=== PATIENT | female | born 1970 | race Caucasian/White ===

== ENCOUNTER 2018-03-07 16:55 | Inpatient (IN) ==
[2018-03-07 17:54] LABS: Baso # (Auto) 0.3 th/mm3 (0.0-0.2); Baso % (Auto) 2.2 % (0.0-2.0); Eos % (Auto) 0.2 % (0.0-4.0); Hematocrit 30.3 % (35.0-46.0); Hemoglobin 10.1 gm/dL (11.6-15.3); Lymph # (Auto) 0.7 th/mm3 (1.0-4.8); Lymph % (Auto) 4.7 % (9.0-44.0); Mean Corpuscular HGB Conc 33.5 % (32.0-36.0); Mean Corpuscular Hemoglobin 31.5 pg (27.0-34.0); Mean Corpuscular Volume 94.1 fL (80.0-100.0); Mean Platelet Volume 8.4 fL (7.0-11.0); Mono # (Auto) 0.4 th/mm3 (0.0-0.9); Mono % (Auto) 2.7 % (0.0-8.0); Neut # (Auto) 13.3 th/mm3 (1.8-7.7); Neut % (Auto) 90.2 % (16.0-70.0); Platelet Count 468 th/mm3 (150-450); Red Blood Count 3.22 mil/mm3 (4.00-5.30); Red Cell Distribution Width 14.2 % (11.6-17.2); White Blood Count 14.7 th/mm3 (4.0-11.0)
[2018-03-07 18:04] LABS: Chloride 110 meq/L (98-107); Potassium 4.5 meq/L (3.5-5.1); Sodium 142 meq/L (136-145)
[2018-03-07 18:08] LABS: Albumin 2.9 g/dL (3.4-5.0); Anion Gap 12 meq/L (5-15); Calcium 10.1 mg/dL (8.5-10.1); Carbon Dioxide 19.6 meq/L (21.0-32.0); Glucose,Random 119 mg/dL (74-106)
[2018-03-07 18:09] LABS: Blood Urea Nitrogen 48 mg/dL (7-18)
[2018-03-07 18:11] LABS: Alanine Aminotransferase 12 U/L (10-53); Aspartate Aminotransferase 5 U/L (15-37)
[2018-03-07 18:12] LABS: Glomerular Filtration Rate 13 mL/min (>89)
[2018-03-07 18:13] LABS: Total Protein 6.5 g/dL (6.4-8.2)
[2018-03-07 18:14] LABS: Alkaline Phosphatase 98 U/L (45-117)
[2018-03-07 18:28] LABS: Creatine Kinase 14 U/L (26-192)
--- NOTE | 2018-03-07 18:32 | ED ---
HPI General Chief complaint: Respiratory Symptoms Stated complaint: Sob/Cough [id number] Time Seen by Provider: 03/07/18 17:25 History of Present Illness HPI narrative: 47-year-old female here for evaluation of cough, chest pain and shortness of breath for the last week, fever on and off, night sweats. Patient has history of renal failure from hypertension status post renal transplant 2011 currently taken Myfortic delayed release as well as prednisone. For the last week she has been having cough that is productive of yellow sputum, pain in her chest when she takes a deep breath in, no leg swelling. When she arrived in the ER she had low saturation. Related Data Home Medications Medication Instructions Recorded Confirmed amlodipine 5 mg PO DAILY 03/07/18 03/10/18 aspirin [Aspir-81] 81 mg PO DAILY 03/07/18 03/10/18 atorvastatin 10 mg PO HS 03/07/18 03/10/18 belatacept [Nulojix] 10 mg/kg IV Q96H 03/07/18 03/10/18 mycophenolate sodium [Myfortic] 360 mg PO BID 03/07/18 03/10/18 potassium chloride 10 meq PO DAILY 03/07/18 03/10/18 prednisone 7.5 mg PO DAILY 03/07/18 03/10/18 metoprolol tartrate 100 mg PO BID 03/09/18 03/10/18 Previous Rx's Medication Instructions Recorded azithromycin 500 mg PO DAILY 7 Days #14 tab 03/17/18 doxycycline hyclate 100 mg PO BID 7 Days #14 cap 03/17/18 Allergies Allergy/AdvReac Type Severity Reaction Status Date / Time No Known Allergies Allergy NONE Uncoded 03/10/18 08:58 Review of Systems Except as stated in HPI: all other systems reviewed are negative [facility] Medical History Medical History Gall bladder disease (Acute) High cholesterol (Acute) Hypertension (Acute) Renal disease (Acute) Surgical History Surgical History Kidney transplant recipient (Acute) Social History Social History Substance History: No History of Abuse Second Hand Smoke Exposure: No Smoking Status: Never smoker How Often Do You Have a Drink Containing Alcohol: Never Recent Out of Country Travel within the Last 8 Weeks: No Immunization History Tetanus Immunization: Unsure Exam Narrative Exam Narrative: GENERAL: Alert oriented 3 no acute distress. SKIN: Focused skin assessment warm/dry. HEAD: Atraumatic. Normocephalic. EYES: Pupils equal and round. No scleral icterus. No injection or drainage. ENT: No nasal bleeding or discharge. Mucous membranes pink and moist. NECK: Trachea midline. No JVD. CARDIOVASCULAR: Regular rate and rhythm. No murmur appreciated. RESPIRATORY: No accessory muscle use. Clear to auscultation. Breath sounds equal bilaterally. GASTROINTESTINAL: Abdomen soft, non-tender, nondistended. Hepatic and splenic margins not palpable. MUSCULOSKELETAL: No obvious deformities. No clubbing. No cyanosis. No edema. NEUROLOGICAL: Awake and alert. No obvious cranial nerve deficits. Motor grossly within normal limits. Normal speech. PSYCHIATRIC: Appropriate mood and affect; insight and judgment normal. Course Initial Documented Vital Signs Temperature 99.0 F 03/07/18 17:06 Pulse Rate 79 03/07/18 17:06 Respiratory Rate 22 03/07/18 17:06 Blood Pressure 157/102 H 03/07/18 17:06 Pulse Oximetry 95 03/07/18 17:06 Last Documented Vital Signs Temperature 98.4 F 03/17/18 12:00 Pulse Rate 66 03/17/18 12:07 Respiratory Rate 20 03/17/18 12:00 Blood Pressure 132/82 03/17/18 12:00 Pulse Oximetry 96 03/17/18 12:00 Medical Decision Making [facility] Narrative Medical decision making narrative: 47-year-old female here for evaluation of cough chest pain dyspnea. CAT scan shows groundglass appearance as well as lower lobe pneumonia. Patient takes immunosuppressants for antirejection of her transplanted kidney, ABG significant for low PaO2, LDH pending, there is a concern for PCP pneumonia. Pending blood cultures, I spoke with Dr. Mckeon and the plan is we will start Rocephin and azithromycin and watch for improvement and if the patient is not improving or if the LDH is significantly elevated will start PCP coverage. Lab Data Result diagrams: 03/16/18 16:25 03/16/18 09:24 Lab Results 03/07/18 03/07/18 03/07/18 Range/Units 17:48 17:48 17:48 CBC w Diff Auto diff final WBC 14.7 H (4.0-11.0) th/mm3 RBC 3.22 L (4.00-5.30) mil/mm3 Hgb 10.1 L (11.6-15.3) gm/dL Hct 30.3 L (35.0-46.0) % MCV 94.1 (80.0-100.0) fL MCH 31.5 (27.0-34.0) pg MCHC 33.5 (32.0-36.0) % RDW 14.2 (11.6-17.2) % Plt Count 468 H (150-450) th/mm3 MPV 8.4 (7.0-11.0) fL Prelim Diff (Auto) Neut % (Auto) 90.2 H (16.0-70.0) % Lymph % (Auto) 4.7 L (9.0-44.0) % [place] % (Auto) 2.7 (0.0-8.0) % Eos % (Auto) 0.2 (0.0-4.0) % Baso % (Auto) 2.2 H (0.0-2.0) % Neut # (Auto) 13.3 H (1.8-7.7) th/mm3 Lymph # (Auto) 0.7 L (1.0-4.8) th/mm3 [place] # (Auto) 0.4 (0.0-0.9) th/mm3 Eos # (Auto) 0.0 (0.0-0.4) th/mm3 Baso # (Auto) 0.3 H (0.0-0.2) th/mm3 WBC Differential . Diff Scan Differential Comment Toxic Granulation (None) Platelet Estimate (Normal) Platelet Morphology (Normal) PT (9.8-11.6) sec INR Ratio APTT (24.3-30.1) sec Puncture Site Patient Temperature O2 Saturation (90-100) % ABG pH (7.380-7.420) ABG pCO2 (38-42) mmHg ABG pO2 (61-120) mmHg ABG HCO3 (22-26) mmol/L ABG O2 Content (12.0-20.0) Vol % ABG Base Excess (-2-2) mmol/L ABG Methemoglobin (0-2) % Marino Test Hemoglobin (12.0-16.0) G/DL Carboxyhemoglobin (0-4) % O2 Delivery Device Inspired O2 % Critical Value Sodium 142 (136-145) meq/L Potassium 4.5 (3.5-5.1) meq/L Chloride 110 H (98-107) meq/L Carbon Dioxide 19.6 L (21.0-32.0) meq/L Anion Gap 12 (5-15) meq/L BUN 48 H (7-18) mg/dL Creatinine 3.70 H (0.50-1.00) mg/dL Estimated GFR 13 L (>89) mL/min Random Glucose 119 H (74-106) mg/dL Lactic Acid (0.4-2.0) mmol/L Calcium 10.1 (8.5-10.1) mg/dL Phosphorus (2.5-4.9) mg/dL Total Bilirubin 0.3 (0.2-1.0) mg/dL AST 5 L (15-37) U/L ALT 12 (10-53) U/L Alkaline Phosphatase 98 (45-117) U/L Lactate Dehydrogenase Total Creatine Kinase 14 L (26-192) U/L Troponin I Less than 0.02 L (0.02-0.05) ng/mL B-Natriuretic Peptide 31 (0-100) pg/mL Total Protein 6.5 (6.4-8.2) g/dL Albumin 2.9 L (3.4-5.0) g/dL Beta HCG, Qual Less than 1 (0-5) mIU/mL TB (QFT) Gold In Tube (Negative) TB Test (QFT) Nil IU/mL TB Test Mitogen - Nil IU/mL TB Test Antigen - Nil IU/mL Misc Test Result Misc Test Comment 03/07/18 03/07/18 03/07/18 Range/Units 17:48 18:30 22:53 CBC w Diff WBC (4.0-11.0) th/mm3 RBC (4.00-5.30) mil/mm3 Hgb (11.6-15.3) gm/dL Hct (35.0-46.0) % MCV (80.0-100.0) fL MCH (27.0-34.0) pg MCHC (32.0-36.0) % RDW (11.6-17.2) % Plt Count (150-450) th/mm3 MPV (7.0-11.0) fL Prelim Diff (Auto) Neut % (Auto) (16.0-70.0) % Lymph % (Auto) (9.0-44.0) % [place] % (Auto) (0.0-8.0) % Eos % (Auto) (0.0-4.0) % Baso % (Auto) (0.0-2.0) % Neut # (Auto) (1.8-7.7) th/mm3 Lymph # (Auto) (1.0-4.8) th/mm3 [place] # (Auto) (0.0-0.9) th/mm3 Eos # (Auto) (0.0-0.4) th/mm3 Baso # (Auto) (0.0-0.2) th/mm3 WBC Differential Diff Scan Differential Comment Toxic Granulation (None) Platelet Estimate (Normal) Platelet Morphology (Normal) PT (9.8-11.6) sec INR Ratio APTT (24.3-30.1) sec Puncture Site Right radial Patient Temperature 98.6 O2 Saturation 91 (90-100) % ABG pH 7.40 (7.380-7.420) ABG pCO2 34 L (38-42) mmHg ABG pO2 71 (61-120) mmHg ABG HCO3 20 L (22-26) mmol/L ABG O2 Content 13.0 (12.0-20.0) Vol % ABG Base Excess -3.6 L (-2-2) mmol/L ABG Methemoglobin 1.7 (0-2) % Marino Test Present Hemoglobin 10.1 L (12.0-16.0) G/DL Carboxyhemoglobin 1.4 (0-4) % O2 Delivery Device Ra Inspired O2 21 % Critical Value No Sodium (136-145) meq/L Potassium (3.5-5.1) meq/L Chloride (98-107) meq/L Carbon Dioxide (21.0-32.0) meq/L Anion Gap (5-15) meq/L BUN (7-18) mg/dL Creatinine (0.50-1.00) mg/dL Estimated GFR (>89) mL/min Random Glucose (74-106) mg/dL Lactic Acid 0.9 (0.4-2.0) mmol/L Calcium (8.5-10.1) mg/dL Phosphorus (2.5-4.9) mg/dL Total Bilirubin (0.2-1.0) mg/dL AST (15-37) U/L ALT (10-53) U/L Alkaline Phosphatase (45-117) U/L Lactate Dehydrogenase Cancelled Total Creatine Kinase (26-192) U/L Troponin I (0.02-0.05) ng/mL B-Natriuretic Peptide (0-100) pg/mL Total Protein (6.4-8.2) g/dL Albumin (3.4-5.0) g/dL Beta HCG, Qual (0-5) mIU/mL TB (QFT) Gold In Tube (Negative) TB Test (QFT) Nil IU/mL TB Test Mitogen - Nil IU/mL TB Test Antigen - Nil IU/mL Misc Test Result Misc Test Comment 03/08/18 03/08/18 03/09/18 Range/Units 06:00 06:00 04:55 CBC w Diff Auto diff final WBC 12.5 H 15.1 H (4.0-11.0) th/mm3 RBC 2.81 L 2.76 L (4.00-5.30) mil/mm3 Hgb 8.8 L 8.5 L (11.6-15.3) gm/dL Hct 26.6 L 26.6 L (35.0-46.0) % MCV 94.7 96.1 (80.0-100.0) fL MCH 31.5 30.9 (27.0-34.0) pg MCHC 33.2 32.2 (32.0-36.0) % RDW 14.3 13.4 (11.6-17.2) % Plt Count 378 389 (150-450) th/mm3 MPV 9.2 9.2 (7.0-11.0) fL Prelim Diff (Auto) Neut % (Auto) 86.2 H (16.0-70.0) % Lymph % (Auto) 6.1 L (9.0-44.0) % [place] % (Auto) 6.2 (0.0-8.0) % Eos % (Auto) 1.1 (0.0-4.0) % Baso % (Auto) 0.4 (0.0-2.0) % Neut # (Auto) 10.7 H (1.8-7.7) th/mm3 Lymph # (Auto) 0.8 L (1.0-4.8) th/mm3 [place] # (Auto) 0.8 (0.0-0.9) th/mm3 Eos # (Auto) 0.1 (0.0-0.4) th/mm3 Baso # (Auto) 0.1 (0.0-0.2) th/mm3 WBC Differential . Diff Scan Differential Comment Toxic Granulation (None) Platelet Estimate (Normal) Platelet Morphology (Normal) PT (9.8-11.6) sec INR Ratio APTT (24.3-30.1) sec Puncture Site Patient Temperature O2 Saturation (90-100) % ABG pH (7.380-7.420) ABG pCO2 (38-42) mmHg ABG pO2 (61-120) mmHg ABG HCO3 (22-26) mmol/L ABG O2 Content (12.0-20.0) Vol % ABG Base Excess (-2-2) mmol/L ABG Methemoglobin (0-2) % [place] Test Hemoglobin (12.0-16.0) G/DL Carboxyhemoglobin (0-4) % O2 Delivery Device Inspired O2 % Critical Value Sodium 151 H (136-145) meq/L Potassium 3.8 (3.5-5.1) meq/L Chloride 117 H (98-107) meq/L Carbon Dioxide 22.8 (21.0-32.0) meq/L Anion Gap 11 (5-15) meq/L BUN 46 H (7-18) mg/dL Creatinine 3.50 H (0.50-1.00) mg/dL Estimated GFR 14 L (>89) mL/min Random Glucose 86 (74-106) mg/dL Lactic Acid (0.4-2.0) mmol/L Calcium 9.3 D (8.5-10.1) mg/dL Phosphorus (2.5-4.9) mg/dL Total Bilirubin (0.2-1.0) mg/dL AST (15-37) U/L ALT (10-53) U/L Alkaline Phosphatase (45-117) U/L Lactate Dehydrogenase Total Creatine Kinase (26-192) U/L Troponin I (0.02-0.05) ng/mL B-Natriuretic Peptide (0-100) pg/mL Total Protein (6.4-8.2) g/dL Albumin (3.4-5.0) g/dL Beta HCG, Qual (0-5) mIU/mL TB (QFT) Gold In Tube (Negative) TB Test (QFT) Nil IU/mL TB Test Mitogen - Nil IU/mL TB Test Antigen - Nil IU/mL Misc Test Result Misc Test Comment 03/09/18 03/10/18 03/11/18 Range/Units 04:55 05:33 08:25 CBC w Diff WBC 18.3 H (4.0-11.0) th/mm3 RBC 2.94 L (4.00-5.30) mil/mm3 Hgb 8.9 L (11.6-15.3) gm/dL Hct 28.2 L (35.0-46.0) % MCV 95.7 (80.0-100.0) fL MCH 30.1 (27.0-34.0) pg MCHC 31.5 L (32.0-36.0) % RDW 13.3 (11.6-17.2) % Plt Count 393 (150-450) th/mm3 MPV 8.7 (7.0-11.0) fL Prelim Diff (Auto) Neut % (Auto) (16.0-70.0) % Lymph % (Auto) (9.0-44.0) % [place] % (Auto) (0.0-8.0) % Eos % (Auto) (0.0-4.0) % Baso % (Auto) (0.0-2.0) % Neut # (Auto) (1.8-7.7) th/mm3 Lymph # (Auto) (1.0-4.8) th/mm3 [place] # (Auto) (0.0-0.9) th/mm3 Eos # (Auto) (0.0-0.4) th/mm3 Baso # (Auto) (0.0-0.2) th/mm3 WBC Differential Diff Scan Differential Comment Toxic Granulation (None) Platelet Estimate (Normal) Platelet Morphology (Normal) PT (9.8-11.6) sec INR Ratio APTT (24.3-30.1) sec Puncture Site Patient Temperature O2 Saturation (90-100) % ABG pH (7.380-7.420) ABG pCO2 (38-42) mmHg ABG pO2 (61-120) mmHg ABG HCO3 (22-26) mmol/L ABG O2 Content (12.0-20.0) Vol % ABG Base Excess (-2-2) mmol/L ABG Methemoglobin (0-2) % Mar[place] Test Hemoglobin (12.0-16.0) G/DL Carboxyhemoglobin (0-4) % O2 Delivery Device Inspired O2 % Critical Value Sodium 145 (136-145) meq/L Potassium 3.6 (3.5-5.1) meq/L Chloride 112 H (98-107) meq/L Carbon Dioxide 22.2 (21.0-32.0) meq/L Anion Gap 11 (5-15) meq/L BUN 43 H (7-18) mg/dL Creatinine 3.40 H (0.50-1.00) mg/dL Estimated GFR 14 L (>89) mL/min Random Glucose 85 (74-106) mg/dL Lactic Acid (0.4-2.0) mmol/L Calcium 9.4 (8.5-10.1) mg/dL Phosphorus (2.5-4.9) mg/dL Total Bilirubin (0.2-1.0) mg/dL AST (15-37) U/L ALT (10-53) U/L Alkaline Phosphatase (45-117) U/L Lactate Dehydrogenase Total Creatine Kinase (26-192) U/L Troponin I (0.02-0.05) ng/mL B-Natriuretic Peptide (0-100) pg/mL Total Protein (6.4-8.2) g/dL Albumin (3.4-5.0) g/dL Beta HCG, Qual (0-5) mIU/mL TB (QFT) Gold In Tube Negative (Negative) TB Test (QFT) Nil 0.02 IU/mL TB Test Mitogen - Nil 1.06 IU/mL TB Test Antigen - Nil 0 IU/mL Misc Test Result Misc Test Comment 03/11/18 03/12/18 03/12/18 Range/Units 08:25 06:05 06:05 CBC w Diff WBC 16.1 H (4.0-11.0) th/mm3 RBC 2.66 L (4.00-5.30) mil/mm3 Hgb 8.3 L (11.6-15.3) gm/dL Hct 24.8 L (35.0-46.0) % MCV 93.1 (80.0-100.0) fL MCH 31.3 (27.0-34.0) pg MCHC 33.6 (32.0-36.0) % RDW 14.0 (11.6-17.2) % Plt Count 352 (150-450) th/mm3 MPV 9.1 (7.0-11.0) fL Prelim Diff (Auto) Neut % (Auto) (16.0-70.0) % Lymph % (Auto) (9.0-44.0) % [place] % (Auto) (0.0-8.0) % Eos % (Auto) (0.0-4.0) % Baso % (Auto) (0.0-2.0) % Neut # (Auto) (1.8-7.7) th/mm3 Lymph # (Auto) (1.0-4.8) th/mm3 [place] # (Auto) (0.0-0.9) th/mm3 Eos # (Auto) (0.0-0.4) th/mm3 Baso # (Auto) (0.0-0.2) th/mm3 WBC Differential Diff Scan Differential Comment Toxic Granulation (None) Platelet Estimate (Normal) Platelet Morphology (Normal) PT (9.8-11.6) sec INR Ratio APTT (24.3-30.1) sec Puncture Site Patient Temperature O2 Saturation (90-100) % ABG pH (7.380-7.420) ABG pCO2 (38-42) mmHg ABG pO2 (61-120) mmHg ABG HCO3 (22-26) mmol/L ABG O2 Content (12.0-20.0) Vol % ABG Base Excess (-2-2) mmol/L ABG Methemoglobin (0-2) % [place] Test Hemoglobin (12.0-16.0) G/DL Carboxyhemoglobin (0-4) % O2 Delivery Device Inspired O2 % Critical Value Sodium 147 H 147 H (136-145) meq/L Potassium 3.3 L 3.4 L (3.5-5.1) meq/L Chloride 114 H 116 H (98-107) meq/L Carbon Dioxide 21.0 20.2 L (21.0-32.0) meq/L Anion Gap 12 11 (5-15) meq/L BUN 29 H 29 H (7-18) mg/dL Creatinine 3.30 H 3.20 H (0.50-1.00) mg/dL Estimated GFR 15 L 15 L (>89) mL/min Random Glucose 119 H 98 (74-106) mg/dL Lactic Acid (0.4-2.0) mmol/L Calcium 9.6 9.7 (8.5-10.1) mg/dL Phosphorus (2.5-4.9) mg/dL Total Bilirubin 0.4 (0.2-1.0) mg/dL AST 8 L (15-37) U/L ALT 8 L (10-53) U/L Alkaline Phosphatase 70 (45-117) U/L Lactate Dehydrogenase Total Creatine Kinase (26-192) U/L Troponin I (0.02-0.05) ng/mL B-Natriuretic Peptide (0-100) pg/mL Total Protein 5.7 L D (6.4-8.2) g/dL Albumin 2.0 L (3.4-5.0) g/dL Beta HCG, Qual (0-5) mIU/mL TB (QFT) Gold In Tube (Negative) TB Test (QFT) Nil IU/mL TB Test Mitogen - Nil IU/mL TB Test Antigen - Nil IU/mL Misc Test Result Misc Test Comment 03/12/18 03/13/18 03/13/18 Range/Units 11:55 06:00 06:00 CBC w Diff WBC 16.9 H (4.0-11.0) th/mm3 RBC 2.84 L (4.00-5.30) mil/mm3 Hgb 8.4 L (11.6-15.3) gm/dL Hct 26.7 L (35.0-46.0) % MCV 94.1 (80.0-100.0) fL MCH 29.8 (27.0-34.0) pg MCHC 31.6 L (32.0-36.0) % RDW 13.7 (11.6-17.2) % Plt Count 375 (150-450) th/mm3 MPV 8.9 (7.0-11.0) fL Prelim Diff (Auto) Neut % (Auto) (16.0-70.0) % Lymph % (Auto) (9.0-44.0) % [place] % (Auto) (0.0-8.0) % Eos % (Auto) (0.0-4.0) % Baso % (Auto) (0.0-2.0) % Neut # (Auto) (1.8-7.7) th/mm3 Lymph # (Auto) (1.0-4.8) th/mm3 [place] # (Auto) (0.0-0.9) th/mm3 Eos # (Auto) (0.0-0.4) th/mm3 Baso # (Auto) (0.0-0.2) th/mm3 WBC Differential Diff Scan Differential Comment Toxic Granulation (None) Platelet Estimate (Normal) Platelet Morphology (Normal) PT 10.6 (9.8-11.6) sec INR 1.0 Ratio APTT 25.0 (24.3-30.1) sec Puncture Site Patient Temperature O2 Saturation (90-100) % ABG pH (7.380-7.420) ABG pCO2 (38-42) mmHg ABG pO2 (61-120) mmHg ABG HCO3 (22-26) mmol/L ABG O2 Content (12.0-20.0) Vol % ABG Base Excess (-2-2) mmol/L ABG Methemoglobin (0-2) % Mar[place] Test Hemoglobin (12.0-16.0) G/DL Carboxyhemoglobin (0-4) % O2 Delivery Device Inspired O2 % Critical Value Sodium 146 H (136-145) meq/L Potassium 3.6 (3.5-5.1) meq/L Chloride 115 H (98-107) meq/L Carbon Dioxide 16.3 L (21.0-32.0) meq/L Anion Gap 15 (5-15) meq/L BUN 36 H (7-18) mg/dL Creatinine 3.24 H (0.50-1.00) mg/dL Estimated GFR 15 L (>89) mL/min Random Glucose 82 (74-106) mg/dL Lactic Acid (0.4-2.0) mmol/L Calcium 10.0 (8.5-10.1) mg/dL Phosphorus (2.5-4.9) mg/dL Total Bilirubin (0.2-1.0) mg/dL AST (15-37) U/L ALT (10-53) U/L Alkaline Phosphatase (45-117) U/L Lactate Dehydrogenase Total Creatine Kinase (26-192) U/L Troponin I (0.02-0.05) ng/mL B-Natriuretic Peptide (0-100) pg/mL Total Protein (6.4-8.2) g/dL Albumin (3.4-5.0) g/dL Beta HCG, Qual (0-5) mIU/mL TB (QFT) Gold In Tube (Negative) TB Test (QFT) Nil IU/mL TB Test Mitogen - Nil IU/mL TB Test Antigen - Nil IU/mL Misc Test Result Misc Test Comment 03/13/18 03/14/18 03/14/18 Range/Units 13:36 12:17 12:17 CBC w Diff WBC 15.7 H (4.0-11.0) th/mm3 RBC 2.89 L (4.00-5.30) mil/mm3 Hgb 8.5 L (11.6-15.3) gm/dL Hct 27.4 L (35.0-46.0) % MCV 94.8 (80.0-100.0) fL MCH 29.4 (27.0-34.0) pg MCHC 31.1 L (32.0-36.0) % RDW 13.6 (11.6-17.2) % Plt Count 331 (150-450) th/mm3 MPV 9.2 (7.0-11.0) fL Prelim Diff (Auto) Neut % (Auto) (16.0-70.0) % Lymph % (Auto) (9.0-44.0) % [place] % (Auto) (0.0-8.0) % Eos % (Auto) (0.0-4.0) % Baso % (Auto) (0.0-2.0) % Neut # (Auto) (1.8-7.7) th/mm3 Lymph # (Auto) (1.0-4.8) th/mm3 [place] # (Auto) (0.0-0.9) th/mm3 Eos # (Auto) (0.0-0.4) th/mm3 Baso # (Auto) (0.0-0.2) th/mm3 WBC Differential Diff Scan Differential Comment Toxic Granulation (None) Platelet Estimate (Normal) Platelet Morphology (Normal) PT (9.8-11.6) sec INR Ratio APTT (24.3-30.1) sec Puncture Site Patient Temperature O2 Saturation (90-100) % ABG pH (7.380-7.420) ABG pCO2 (38-42) mmHg ABG pO2 (61-120) mmHg ABG HCO3 (22-26) mmol/L ABG O2 Content (12.0-20.0) Vol % ABG Base Excess (-2-2) mmol/L ABG Methemoglobin (0-2) % Mar[place] Test Hemoglobin (12.0-16.0) G/DL Carboxyhemoglobin (0-4) % O2 Delivery Device Inspired O2 % Critical Value Sodium 142 (136-145) meq/L Potassium 4.1 (3.5-5.1) meq/L Chloride 113 H (98-107) meq/L Carbon Dioxide 17.3 L (21.0-32.0) meq/L Anion Gap 12 (5-15) meq/L BUN 44 H (7-18) mg/dL Creatinine 3.16 H (0.50-1.00) mg/dL Estimated GFR 16 L (>89) mL/min Random Glucose 122 H (74-106) mg/dL Lactic Acid (0.4-2.0) mmol/L Calcium 10.1 (8.5-10.1) mg/dL Phosphorus 2.7 (2.5-4.9) mg/dL Total Bilirubin (0.2-1.0) mg/dL AST (15-37) U/L ALT (10-53) U/L Alkaline Phosphatase (45-117) U/L Lactate Dehydrogenase Total Creatine Kinase (26-192) U/L Troponin I (0.02-0.05) ng/mL B-Natriuretic Peptide (0-100) pg/mL Total Protein (6.4-8.2) g/dL Albumin 2.0 L (3.4-5.0) g/dL Beta HCG, Qual (0-5) mIU/mL TB (QFT) Gold In Tube (Negative) TB Test (QFT) Nil IU/mL TB Test Mitogen - Nil IU/mL TB Test Antigen - Nil IU/mL Misc Test Result Cancelled Misc Test Comment Cancelled 03/15/18 03/16/18 03/16/18 Range/Units 09:49 09:24 16:25 CBC w Diff WBC 12.7 H (4.0-11.0) th/mm3 RBC 3.05 L (4.00-5.30) mil/mm3 Hgb 9.1 L (11.6-15.3) gm/dL Hct 29.0 L (35.0-46.0) % MCV 95.0 (80.0-100.0) fL MCH 29.7 (27.0-34.0) pg MCHC 31.3 L (32.0-36.0) % RDW 13.7 (11.6-17.2) % Plt Count 413 (150-450) th/mm3 MPV 9.2 (7.0-11.0) fL Prelim Diff (Auto) Slide review pending Neut % (Auto) 94.7 H (16.0-70.0) % Lymph % (Auto) 2.4 L (9.0-44.0) % Bullitt % (Auto) 2.6 (0.0-8.0) % Eos % (Auto) 0.1 (0.0-4.0) % Baso % (Auto) 0.2 (0.0-2.0) % Neut # (Auto) 12.0 H (1.8-7.7) th/mm3 Lymph # (Auto) 0.3 L (1.0-4.8) th/mm3 Bullitt # (Auto) 0.3 (0.0-0.9) th/mm3 Eos # (Auto) 0.0 (0.0-0.4) th/mm3 Baso # (Auto) 0.0 (0.0-0.2) th/mm3 WBC Differential . Diff Scan Auto diff confirmed Differential Comment . Toxic Granulation 1+ H (None) Platelet Estimate Normal (Normal) Platelet Morphology Normal (Normal) PT (9.8-11.6) sec INR Ratio APTT (24.3-30.1) sec Puncture Site Patient Temperature O2 Saturation (90-100) % ABG pH (7.380-7.420) ABG pCO2 (38-42) mmHg ABG pO2 (61-120) mmHg ABG HCO3 (22-26) mmol/L ABG O2 Content (12.0-20.0) Vol % ABG Base Excess (-2-2) mmol/L ABG Methemoglobin (0-2) % Marino Test Hemoglobin (12.0-16.0) G/DL Carboxyhemoglobin (0-4) % O2 Delivery Device Inspired O2 % Critical Value Sodium 145 145 (136-145) meq/L Potassium 4.0 3.7 (3.5-5.1) meq/L Chloride 113 H 114 H (98-107) meq/L Carbon Dioxide 17.6 L 16.8 L (21.0-32.0) meq/L Anion Gap 14 14 (5-15) meq/L BUN 43 H 47 H (7-18) mg/dL Creatinine 3.29 H 3.36 H (0.50-1.00) mg/dL Estimated GFR 15 L 15 L (>89) mL/min Random Glucose 109 H 125 H (74-106) mg/dL Lactic Acid (0.4-2.0) mmol/L Calcium 11.1 H D 11.4 H (8.5-10.1) mg/dL Phosphorus 2.4 L 2.9 (2.5-4.9) mg/dL Total Bilirubin (0.2-1.0) mg/dL AST (15-37) U/L ALT (10-53) U/L Alkaline Phosphatase (45-117) U/L Lactate Dehydrogenase Total Creatine Kinase (26-192) U/L Troponin I (0.02-0.05) ng/mL B-Natriuretic Peptide (0-100) pg/mL Total Protein (6.4-8.2) g/dL Albumin 2.0 L 1.9 L (3.4-5.0) g/dL Beta HCG, Qual (0-5) mIU/mL TB (QFT) Gold In Tube (Negative) TB Test (QFT) Nil IU/mL TB Test Mitogen - Nil IU/mL TB Test Antigen - Nil IU/mL Misc Test Result Misc Test Comment Imaging Data Radiologist's impression: Chest CT 03/07/18 17:26 CONCLUSION: 1. Bilateral pulmonary infiltrates likely infectious in etiology. Noncardiogenic pulmonary edema could have a similar appearance . Chest X-Ray 03/11/18 00:00 CONCLUSION: Bibasilar patchy infiltrates. Treatment and follow-up to resolution recommended. Chest X-Ray 03/15/18 00:00 CONCLUSION: Bilateral edema versus pneumonia unchanged Discharge Plan Discharge Disposition Patient Disposition: 02 Transfer to [facility] Discharge Condition Condition: Stable Discharge Order Discharge Orders: Discharge Order (Routine); Ordered 03/17/18 Ordered By: Sameer Lux Discharge Details Anticipated Discharge Date: 03/17/18 Physicians Team ED Provider: David Dailey Primary Care Provider: UNKNOWN, Attending Provider: Sameer Lux Other Providers: Fredrick Metzger ; Corry Corcoran ; [facility],Insurance ; Mark Turcios ; Gigi Lance Status ED Status: Left Department Discharge Information Discharge Date/Time: 03/07/18 20:45
[2018-03-07 18:38] LABS: ABG Base Excess -3.6 mmol/L (-2-2); ABG PCO2 34 mmHg (38-42); ABG PO2 71 mmHg (61-120)
[2018-03-07] MEDS ORDERED: Temazepam 15 MG Capsule PO PRN (18:41)
[2018-03-07] MEDS ORDERED: Acetaminophen 325 MG Tablet PO PRN (18:41)
[2018-03-07] MEDS: Azithromycin Inj 500 MG in Sodium Chlor 0.9% Inj 250 ML IV.SIG SCH (20:21)
--- NOTE | 2018-03-07 21:22 | ECG ---
Date Performed: 03/07/2018 Time Performed: 17:36:15 PTAGE: 47 years EKG: Sinus rhythm POSSIBLE LEFT ATRIAL ENLARGEMENT BORDERLINE ECG PREVIOUS TRACING : 05/04/2011 02.16 Since the previous tracing, no significant change noted DOCTOR: Miguel Woods Interpretating Date/Time 03/07/2018 21:20:36
[2018-03-07] MEDS: Heparin - SQ 10,000 UNITS/ML Vial SQ SCH (23:03)
[2018-03-08] MEDS: Heparin - SQ 10,000 UNITS/ML Vial SQ SCH ×3 (04:44→18:18)
[2018-03-08 07:06] LABS: Baso # (Auto) 0.1 th/mm3 (0.0-0.2); Baso % (Auto) 0.4 % (0.0-2.0); Eos # (Auto) 0.1 th/mm3 (0.0-0.4); Eos % (Auto) 1.1 % (0.0-4.0); Hematocrit 26.6 % (35.0-46.0); Hemoglobin 8.8 gm/dL (11.6-15.3); Lymph # (Auto) 0.8 th/mm3 (1.0-4.8); Lymph % (Auto) 6.1 % (9.0-44.0); Mean Corpuscular HGB Conc 33.2 % (32.0-36.0); Mean Corpuscular Hemoglobin 31.5 pg (27.0-34.0); Mean Corpuscular Volume 94.7 fL (80.0-100.0); Mean Platelet Volume 9.2 fL (7.0-11.0); Mono # (Auto) 0.8 th/mm3 (0.0-0.9); Mono % (Auto) 6.2 % (0.0-8.0); Neut # (Auto) 10.7 th/mm3 (1.8-7.7); Neut % (Auto) 86.2 % (16.0-70.0); Platelet Count 378 th/mm3 (150-450); Red Blood Count 2.81 mil/mm3 (4.00-5.30); Red Cell Distribution Width 14.3 % (11.6-17.2); White Blood Count 12.5 th/mm3 (4.0-11.0)
[2018-03-08 07:13] LABS: Potassium 3.8 meq/L (3.5-5.1)
[2018-03-08 07:17] LABS: Calcium 9.3 mg/dL (8.5-10.1)
[2018-03-08 07:18] LABS: Carbon Dioxide 22.8 meq/L (21.0-32.0)
[2018-03-08] MEDS ORDERED: BELATACEPT IV.SIG SCH (10:15)
--- NOTE | 2018-03-08 10:21 | P.HP ---
History of Present Illness Primary Care Physician: Sea Rizo MD Chief Complaint: shortness of breath History of Present Illness: this is a 47 y/o female with history of kidney failure- s/p renal transplant, hypertension, who presented to ER with worsening sob over the past two weeks. she says that now when she's walking she's having more sob. she has dry cough. she had some low grade fever at home. she doesn't recall any recent sick exposures. - Diagnosis (1) Pneumonia (2) S/P kidney transplant (3) Hypertension (4) Hypernatremia - Inpatient Certification If this patient has been admitted as an Inpatient: I certify that the inpatient services were ordered in accordance with Medicare regulations governing the order. This includes certification that hospital inpatient services are reasonable and necessary and in the case of services not specified as inpatient-only under 42 CFR 419.22(n), that they are appropriately provided as inpatient services in accordance to with the 2-midnight benchmark under 43 CFR 412.3(e) Estimated Total Length of Stay (Days): 4 Plans for Post Hospital Care: Home Review of Systems All other systems reviewed negative except as stated in HPI PMFSH - History History Provided By: Patient - Medical History Medical History: Medical History (Last Reviewed 03/08/18 @ 10:16 by Savanna Martin MD) Gall bladder disease High cholesterol - Surgical History Surgical History: Surgical History (Last Reviewed 03/08/18 @ 16:04 by Daniel Garcia RN) Kidney transplant recipient - Tobacco History Second Hand Smoke Exposure: No Smoking Status: Never smoker - Alcohol History How Often Do You Have a Drink Containing Alcohol: Never - Substance Use History Substance History: No History of Abuse - Travel History Recent Travel Out of the Country Within the Last 8 Weeks: No - Immunization History Tetanus Immunization: Unsure Medications and Allergies Active Medications: Active Medications Acetaminophen (Tylenol) 650 mg PO Q4H PRN PRN Reason: Temp > 100.4 Albuterol (Duoneb Neb (Prn)) 1 ampul NEB Q4HR NEB PRN PRN Reason: DYSPNEA Amlodipine Besylate (Norvasc) 5 mg PO DAILY [facility] Aspirin (Ecotrin) 81 mg PO DAILY [facility] Atorvastatin Calcium (Lipitor) 10 mg PO HS [facility] Heparin Sodium (Porcine) (Heparin Inj) 5,000 units SQ Q8H [facility] Last Admin: 03/08/18 04:44 Dose: 5,000 units Azithromycin 500 mg/ Sodium (Chloride) 250 mls @ 250 mls/hr IV.SIG Q24H [facility] Last Infusion: 03/07/18 22:17 Dose: Infused Ceftriaxone Sodium 1,000 mg/ (Sodium Chloride) 100 mls @ 200 mls/hr IV.SIG Q12H [facility] Last Infusion: 03/08/18 07:07 Dose: Infused Lactated Ringer's (Lr 1000 Ml Inj) 1,000 mls @ 100 mls/hr IV.CONT .Q10H [facility] Last Admin: 03/08/18 06:12 Dose: 100 mls/hr Metoclopramide HCl (Reglan Inj) 5 mg IV.PUSH Q6HR PRN; Protocol PRN Reason: NAUSEA OR VOMITING Metoprolol Tartrate (Lopressor) 50 mg PO BID [facility] Mycophenolate Sodium (Myfortic Dr) 180 mg PO BID [facility] Non-Formulary Medication (Belatacept [Nulojix]) 10 mg/kg IV.SIG Q96H [facility] Non-Formulary Medication (Prednisone [Prednisone]) 2.5 mg PO DAILY [facility] Temazepam (Restoril) 15 mg PO HS PRN PRN Reason: INSOMNIA Allergies Allergy/AdvReac Type Severity Reaction Status Date / Time No Known Allergies Allergy NONE Uncoded 03/07/18 17:10 Home Medications Medication Instructions Recorded Confirmed Type amlodipine 5 mg PO DAILY 03/07/18 03/07/18 History aspirin [Aspir-81] 81 mg PO DAILY 03/07/18 03/07/18 History atorvastatin 10 mg PO HS 03/07/18 03/08/18 History belatacept [Nulojix] 10 mg/kg IV Q96H 03/07/18 03/07/18 History metoprolol tartrate 50 mg PO BID 03/07/18 03/07/18 History mycophenolate sodium [Myfortic] 180 mg PO BID 03/07/18 History potassium chloride 10 meq PO DAILY 03/07/18 03/07/18 History prednisone 2.5 mg PO DAILY 03/07/18 03/07/18 History Exam Vital signs: Vital Signs 03/07/18 17:06 03/07/18 17:11 03/07/18 17:21 Temperature 99.0 F Pulse Rate 79 82 79 Respiratory Rate 22 18 22 Blood Pressure 157/102 H 172/112 H 164/98 H Pulse Oximetry 95 96 95 03/07/18 18:41 03/07/18 20:49 03/08/18 01:03 Temperature 98.0 F Pulse Rate 82 88 Respiratory Rate 18 21 Blood Pressure 172/112 H 144/93 H Pulse Oximetry 96 91 L 94 L 03/08/18 01:04 03/08/18 04:00 03/08/18 08:00 Temperature 98.4 F 99.2 F Pulse Rate 79 80 Respiratory Rate 23 18 Blood Pressure 122/75 149/86 H Pulse Oximetry 94 L 92 L 95 Intake & Output 03/07/18 03/08/18 03/08/18 18:59 06:59 18:59 Intake Total 1470 / 1470 100 / 100 Balance 1470 / 1470 100 / 100 Weight 47 kg 47.2 kg Intake: IV 1350 / 1350 100 / 100 LR 1000 mL Inj 1,000 ML @ 100 1000 / 1000 mls/hr IV.CONT .Q10H [facility] Rx#: [id number] Azithromycin Inj 500 MG In NS 250 / 250 Inj 250 ML @ 250 mls/hr IV.SIG Q24H [facility] Rx#:[id number] Rocephin Inj 1,000 MG In NS Inj 100 / 100 100 / 100 100 ML @ 200 mls/hr IV.SIG Q12H [facility] Rx#:[id number] Oral 120 / 120 Other: # Voids 2 # Bowel Movements 0 - Constitutional mild distress - Routine HEENT Exam Head: Present: normocephalic, atraumatic Eye: Present: PERRL - Routine Neck Exam Present: supple, full ROM - Routine Respiratory Exam Present: CTA bilaterally - Routine Cardiovascular Exam Present: RRR - Routine Neurological Exam Present: alert, oriented X3 Results - Labs CBC & Chem 7: 03/08/18 06:00 03/08/18 06:00 Labs: Laboratory Results - last 24 hr 03/07/18 03/07/18 03/07/18 17:48 17:48 17:48 CBC w Diff Auto diff final WBC 14.7 H RBC 3.22 L Hgb 10.1 L Hct 30.3 L MCV 94.1 MCH 31.5 MCHC 33.5 RDW 14.2 Plt Count 468 H MPV 8.4 Neut % (Auto) 90.2 H Lymph % (Auto) 4.7 L [place] % (Auto) 2.7 Eos % (Auto) 0.2 Baso % (Auto) 2.2 H Neut # (Auto) 13.3 H Lymph # (Auto) 0.7 L [place] # (Auto) 0.4 Eos # (Auto) 0.0 Baso # (Auto) 0.3 H WBC Differential . Puncture Site Patient Temperature O2 Saturation ABG pH ABG pCO2 ABG pO2 ABG HCO3 ABG O2 Content ABG Base Excess ABG Methemoglobin [place] Test Hemoglobin Carboxyhemoglobin O2 Delivery Device Inspired O2 Critical Value Sodium 142 Potassium 4.5 Chloride 110 H Carbon Dioxide 19.6 L Anion Gap 12 BUN 48 H Creatinine 3.70 H Estimated GFR 13 L Random Glucose 119 H Lactic Acid Calcium 10.1 Total Bilirubin 0.3 AST 5 L ALT 12 Alkaline Phosphatase 98 Lactate Dehydrogenase Total Creatine Kinase 14 L Troponin I Less than 0.02 L B-Natriuretic Peptide 31 Total Protein 6.5 Albumin 2.9 L Beta HCG, Qual Less than 1 03/07/18 03/07/18 03/07/18 17:48 18:30 22:53 CBC w Diff WBC RBC Hgb Hct MCV MCH MCHC RDW Plt Count MPV Neut % (Auto) Lymph % (Auto) [place] % (Auto) Eos % (Auto) Baso % (Auto) Neut # (Auto) Lymph # (Auto) [place] # (Auto) Eos # (Auto) Baso # (Auto) WBC Differential Puncture Site Right radial Patient Temperature 98.6 O2 Saturation 91 ABG pH 7.40 ABG pCO2 34 L ABG pO2 71 ABG HCO3 20 L ABG O2 Content 13.0 ABG Base Excess -3.6 L ABG Methemoglobin 1.7 [place] Test Present Hemoglobin 10.1 L Carboxyhemoglobin 1.4 O2 Delivery Device Ra Inspired O2 21 Critical Value No Sodium Potassium Chloride Carbon Dioxide Anion Gap BUN Creatinine Estimated GFR Random Glucose Lactic Acid 0.9 Calcium Total Bilirubin AST ALT Alkaline Phosphatase Lactate Dehydrogenase Cancelled Total Creatine Kinase Troponin I B-Natriuretic Peptide Total Protein Albumin Beta HCG, Qual 03/08/18 03/08/18 06:00 06:00 CBC w Diff Auto diff final WBC 12.5 H RBC 2.81 L Hgb 8.8 L Hct 26.6 L MCV 94.7 MCH 31.5 MCHC 33.2 RDW 14.3 Plt Count 378 MPV 9.2 Neut % (Auto) 86.2 H Lymph % (Auto) 6.1 L [place] % (Auto) 6.2 Eos % (Auto) 1.1 Baso % (Auto) 0.4 Neut # (Auto) 10.7 H Lymph # (Auto) 0.8 L [place] # (Auto) 0.8 Eos # (Auto) 0.1 Baso # (Auto) 0.1 WBC Differential . Puncture Site Patient Temperature O2 Saturation ABG pH ABG pCO2 ABG pO2 ABG HCO3 ABG O2 Content ABG Base Excess ABG Methemoglobin [place] Test Hemoglobin Carboxyhemoglobin O2 Delivery Device Inspired O2 Critical Value Sodium 151 H Potassium 3.8 Chloride 117 H Carbon Dioxide 22.8 Anion Gap 11 BUN 46 H Creatinine 3.50 H Estimated GFR 14 L Random Glucose 86 Lactic Acid Calcium 9.3 D Total Bilirubin AST ALT Alkaline Phosphatase Lactate Dehydrogenase Total Creatine Kinase Troponin I B-Natriuretic Peptide Total Protein Albumin Beta HCG, Qual - Imaging Impressions Chest CT 03/07/18 17:26 CONCLUSION: 1. Bilateral pulmonary infiltrates likely infectious in etiology. Noncardiogenic pulmonary edema could have a similar appearance . Caprini VTE Risk Assessment Caprini VTE Risk Assessment: Moderate/High Risk (score >= 2) Caprini Risk Assessment Model: Point Value = 1 Point Value = 2 Point Value = 3 Point Value = 5 Age 41-60 Minor surgery BMI > 25 kg/m2 Swollen legs Varicose veins or History of unexplained or recurrent spontaneous Oral contraceptives or hormone replacement Sepsis (< 1 month) Serious lung disease, including pneumonia (< 1 month) Abnormal pulmonary function Acute myocardial infarction Congestive heart failure (< 1 month) History of inflammatory bowel disease Medical patient at bed rest Age 61-74 Arthroscopic surgery Major open surgery (> 45 min) Laparoscopic surgery (> 45 min) Malignancy Confined to bed (> 72 hours) Immobilizing plaster cast Central venous access Age >= 75 History of VTE Family history of VTE Factor V Leiden Prothrombin [id number] Lupus anticoagulant Anticardiolipin antibodies Elevated serum homocysteine Heparin-induced thrombocytopenia Other congenital or acquired thrombophilia Stroke (< 1 month) Elective arthroplasty Hip, pelvis, or leg fracture Acute spinal cord injury (< 1 month) Prophylaxis Regimen: Total Risk Factor Score Risk Level Prophylaxis Regimen 0-1 Low Early ambulation 2 Moderate Order ONE of the following: *Sequential Compression Device (SCD) *Heparin 5000 units SQ BID 3-4 Higher Order ONE of the following medications: *Heparin 5000 units SQ TID *Enoxaparin/Lovenox 40 mg SQ daily (WT < 150 kg, CrCl > 30 mL/min) *Enoxaparin/Lovenox 30 mg SQ daily (WT < 150 kg, CrCl > 10-29 mL/min) *Enoxaparin/Lovenox 30 mg SQ BID (WT < 150 kg, CrCl > 30 mL/min) AND/OR *Sequential Compression Device (SCD) 5 or more Highest Order ONE of the following medications: *Heparin 5000 units SQ TID (Preferred with Epidurals) *Enoxaparin/Lovenox 40 mg SQ daily (WT < 150 kg, CrCl > 30 mL/min) *Enoxaparin/Lovenox 30 mg SQ daily (WT < 150 kg, CrCl > 10-29 mL/min) *Enoxaparin/Lovenox 30 mg SQ BID (WT < 150 kg, CrCl > 30 mL/min) AND *Sequential Compression Device (SCD) Assessment and Plan - Assessment (1) Pneumonia Code(s): J18.9 - Pneumonia, unspecified organism Status: Acute Plan: continue with IV antibiotics and neb treatment- follow the cultures.will try to wean off the oxygen- to keep O2 sat > 90%. (2) S/P kidney transplant Code(s): Z94.0 - Kidney transplant status Status: Chronic Plan: will continue with immunosuppression therapy- monitor renal function and consult Nephrology. (3) Hypertension Code(s): I10 - Essential (primary) hypertension Status: Chronic Plan: continue home meds and continue to monitor- will adjust the regimen as needed. (4) Hypernatremia Code(s): E87.0 - Hyperosmolality and hypernatremia Status: Acute Plan: continue IV fluid- will monitor- nephrology evaluation as noted above. - Plan Discharge Planning: possible dc home within the next one-two days if clinically improves-pending the cultures. (1) Pneumonia Qualifiers: Pneumonia type: due to unspecified organism Laterality: bilateral (3) Hypertension Qualifiers: Hypertension type: essential hypertension Qualified Code(s): I10 - Essential (primary) hypertension
[2018-03-08] MEDS ORDERED: BELATACEPT IV.PUSH SCH (10:30)
[2018-03-08] MEDS: predniSONE 5 MG Tablet PO SCH (11:04)
[2018-03-08] MEDS: amLODIPine 5 MG Tablet PO SCH (11:04)
--- NOTE | 2018-03-08 14:24 | P.CONNP ---
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 Admitted with history of shortness of breath for 2 weeks, low grade fever and fatigue. Imaging is consistent with pneumonia. She has been placed on Zithromax and Ceftriaxone. Renal function appears to be at baseline. Review of Systems Constitutional: Reports body ache(s), Reports chills, Reports fatigue, Reports fever(s), Reports lack of energy Cardiovascular: Reports shortness of breath, Denies chest pain Respiratory: Reports chest congestion, Reports cough Gastrointestinal: Denies abdominal pain, Denies vomiting blood Musculoskeletal: Denies back pain, Denies muscle weakness, Denies numbness Psychiatric: Denies anxiety PMFSH - History History Provided By: Patient - Medical / Surgical Hx Neg / Unobtainable Medical Problems Denied: Yes - Medical History Medical History: Medical History (Last Reviewed 03/08/18 @ 16:04 by Daniel Garcia RN) Gall bladder disease High cholesterol - Surgical History Surgical History: Surgical History (Last Reviewed 03/08/18 @ 16:04 by Daniel Garcia RN) Kidney transplant recipient - Tobacco History Second Hand Smoke Exposure: No Smoking Status: Never smoker - Alcohol History How Often Do You Have a Drink Containing Alcohol: Never - Substance Use History Substance History: No History of Abuse - Travel History Recent Travel Out of the Country Within the Last 8 Weeks: No - Immunization History Tetanus Immunization: Unsure Medications and Allergies Active Medications: Active Medications Acetaminophen (Tylenol) 650 mg PO Q4H PRN PRN Reason: Temp > 100.4 Albuterol (Duoneb Neb (Prn)) 1 ampul NEB Q4HR NEB PRN PRN Reason: DYSPNEA Last Admin: 03/08/18 14:17 Dose: 1 ampul Amlodipine Besylate (Norvasc) 5 mg PO DAILY [facility] Last Admin: 03/08/18 11:04 Dose: Not Given Aspirin (Ecotrin) 81 mg PO DAILY [facility] Last Admin: 03/08/18 11:04 Dose: Not Given Atorvastatin Calcium (Lipitor) 10 mg PO HS [facility] Heparin Sodium (Porcine) (Heparin Inj) 5,000 units SQ Q8H [facility] Last Admin: 03/08/18 11:05 Dose: 5,000 units Azithromycin 500 mg/ Sodium (Chloride) 250 mls @ 250 mls/hr IV.SIG Q24H [facility] Last Infusion: 03/07/18 22:17 Dose: Infused Lactated Ringer's (Lr 1000 Ml Inj) 1,000 mls @ 100 mls/hr IV.CONT .Q10H [facility] Last Admin: 03/08/18 06:12 Dose: 100 mls/hr Cefepime HCl 1,000 mg/ Sodium (Chloride) 100 mls @ 200 mls/hr IV.SIG Q24H [facility] Last Infusion: 03/08/18 12:00 Dose: Infused Metoclopramide HCl (Reglan Inj) 5 mg IV.PUSH Q6HR PRN; Protocol PRN Reason: NAUSEA OR VOMITING Metoprolol Tartrate (Lopressor) 50 mg PO BID [facility] Mycophenolate Sodium (Myfortic Dr) 180 mg PO BID [facility] Last Admin: 03/08/18 11:04 Dose: Not Given Pt Own - Nulogix 1 each IV.PUSH Q96H [facility] Prednisone (Deltasone) 2.5 mg PO DAILY [facility] Last Admin: 03/08/18 11:04 Dose: Not Given Temazepam (Restoril) 15 mg PO HS PRN PRN Reason: INSOMNIA Allergies Allergy/AdvReac Type Severity Reaction Status Date / Time No Known Allergies Allergy NONE Uncoded 03/07/18 17:10 Home Medications Medication Instructions Recorded Confirmed Type amlodipine 5 mg PO DAILY 03/07/18 03/07/18 History aspirin [Aspir-81] 81 mg PO DAILY 03/07/18 03/07/18 History atorvastatin 10 mg PO HS 03/07/18 03/08/18 History belatacept [Nulojix] 10 mg/kg IV Q96H 03/07/18 03/07/18 History metoprolol tartrate 50 mg PO BID 03/07/18 03/07/18 History mycophenolate sodium [Myfortic] 180 mg PO BID 03/07/18 History potassium chloride 10 meq PO DAILY 03/07/18 03/07/18 History prednisone 2.5 mg PO DAILY 03/07/18 03/07/18 History Exam Vital signs: Vital Signs 03/07/18 17:06 03/07/18 17:11 03/07/18 17:21 Temperature 99.0 F Pulse Rate 79 82 79 Respiratory Rate 22 18 22 Blood Pressure 157/102 H 172/112 H 164/98 H Pulse Oximetry 95 96 95 03/07/18 18:41 03/07/18 20:49 03/08/18 01:03 Temperature 98.0 F Pulse Rate 82 88 Respiratory Rate 18 21 Blood Pressure 172/112 H 144/93 H Pulse Oximetry 96 91 L 94 L 03/08/18 01:04 03/08/18 04:00 03/08/18 08:00 Temperature 98.4 F 99.2 F Pulse Rate 79 80 Respiratory Rate 23 18 Blood Pressure 122/75 149/86 H Pulse Oximetry 94 L 92 L 93 L 03/08/18 09:50 03/08/18 10:57 03/08/18 10:58 Temperature Pulse Rate Respiratory Rate Blood Pressure Pulse Oximetry 94 L 86 L 86 L 03/08/18 11:05 03/08/18 12:00 Temperature 99.2 F Pulse Rate 85 85 Respiratory Rate 16 18 Blood Pressure 135/84 Pulse Oximetry 97 Intake & Output 03/07/18 03/08/18 03/08/18 18:59 06:59 18:59 Intake Total 1470 / 1470 200 / 200 Balance 1470 / 1470 200 / 200 Weight 47 kg 47.2 kg Intake: IV 1350 / 1350 200 / 200 LR 1000 mL Inj 1,000 ML @ 100 1000 / 1000 mls/hr IV.CONT .Q10H [facility] Rx#: [id number] Azithromycin Inj 500 MG In NS 250 / 250 Inj 250 ML @ 250 mls/hr IV.SIG Q24H [facility] Rx#:[id number] Maxipime Inj 1,000 MG In NS Inj 100 / 100 100 ML @ 200 mls/hr IV.SIG Q24H [facility] Rx#:[id number] Rocephin Inj 1,000 MG In NS Inj 100 / 100 100 / 100 100 ML @ 200 mls/hr IV.SIG Q12H [facility] Rx#:[id number] Oral 120 / 120 Other: # Voids 2 # Bowel Movements 0 - Constitutional mild distress - Routine HEENT Exam Head: Present: normocephalic, atraumatic Eye: Present: EOMI, PERRL ENT: Present: mucous membranes moist - Routine Neck Exam Present: supple, full ROM - Routine Chest/Breast/Axilla Exam Chest wall: Absent: tenderness, mass - Routine Respiratory Exam Present: wheezes Comments: decreased breath sounds at the bases. - Routine Cardiovascular Exam Present: RRR, S1, S2 - Routine Abdominal Exam Present: soft, normoactive bowel sounds - Routine Extremities Exam Present: cyanosis. Absent: clubbing, edema - Routine Skin Exam Present: intact - Routine Neurological Exam Present: alert, oriented X3, CN II-XII intact Results - Lab Results 03/08/18 06:00 03/08/18 06:00 Most recent lab results ABG pH 7.40 (7.380-7.420) 03/07/18 18:30 ABG pCO2 34 mmHg (38-42) L 03/07/18 18:30 ABG pO2 71 mmHg (61-120) 03/07/18 18:30 ABG HCO3 20 mmol/L (22-26) L 03/07/18 18:30 Calcium 9.3 mg/dL (8.5-10.1) D 03/08/18 06:00 Assessment and Plan - Assessment (1) S/P kidney transplant Code(s): Z94.0 - Kidney transplant status Status: Chronic Plan: continue immunosuppressive medications. She is on Myfortic and Prednisone and Belatacept. Monitor renal function and urine output. Avoid nephrotoxic agents. See below. (2) Pneumonia Code(s): J18.9 - Pneumonia, unspecified organism Status: Acute Plan: Patient has been placed on Ceftriaxone and Zithromax. Monitor her clinical response. (3) Chronic kidney disease, stage 4 (severe) Code(s): N18.4 - Chronic kidney disease, stage 4 (severe) Status: Acute Plan: Renal function appears to be near her baseline. She has stage IV to V CKD. She was leaning towards PD. No immediate need for dialysis. (4) Hyperosmolality and hypernatremia Code(s): E87.0 - Hyperosmolality and hypernatremia Status: Acute Plan: Change IVF to 1/2NS. Hypernatremia is likely secondary to excessive sensible and insensible losses, hypovolemic hypernatremia. - Attending Attestation Thanks for the consult. (2) Pneumonia Qualifiers: Pneumonia type: due to unspecified organism Laterality: bilateral
[2018-03-08] MEDS ORDERED: Sodium Chloride 0.45 % Inj 1,000 ML IV.CONT SCH (16:30)
[2018-03-08] MEDS: Azithromycin Inj 500 MG in Sodium Chlor 0.9% Inj 250 ML IV.SIG SCH (18:19)
[2018-03-08] MEDS: Metoprolol Tartrate 50 MG Tablet PO SCH (20:40)
[2018-03-09] MEDS: Heparin - SQ 10,000 UNITS/ML Vial SQ SCH ×3 (03:23→18:24)
[2018-03-09 06:24] LABS: Hematocrit 26.6 % (35.0-46.0); Hemoglobin 8.5 gm/dL (11.6-15.3); Mean Corpuscular HGB Conc 32.2 % (32.0-36.0); Mean Corpuscular Hemoglobin 30.9 pg (27.0-34.0); Mean Corpuscular Volume 96.1 fL (80.0-100.0); Mean Platelet Volume 9.2 fL (7.0-11.0); Platelet Count 389 th/mm3 (150-450); Red Blood Count 2.76 mil/mm3 (4.00-5.30); Red Cell Distribution Width 13.4 % (11.6-17.2); White Blood Count 15.1 th/mm3 (4.0-11.0)
[2018-03-09 07:35] LABS: Potassium 3.6 meq/L (3.5-5.1)
[2018-03-09 07:37] LABS: Calcium 9.4 mg/dL (8.5-10.1)
[2018-03-09 07:38] LABS: Carbon Dioxide 22.2 meq/L (21.0-32.0)
[2018-03-09] MEDS: predniSONE 5 MG Tablet PO SCH (08:01)
[2018-03-09] MEDS: amLODIPine 5 MG Tablet PO SCH (08:02)
[2018-03-09] MEDS: Metoprolol Tartrate 50 MG Tablet PO SCH ×2 (08:02→21:20)
--- NOTE | 2018-03-09 08:37 | P.PN ---
Subjective Interval history: f/u; pneumonia seems somewhat ill-looking- is afebrile but still with sob and exertional dyspnea. currently on two liters of oxygen via [place]. denies pain. has occasional dry cough. Physical Exam Vital signs: Vital Signs 03/08/18 09:50 03/08/18 10:57 03/08/18 10:58 Temperature Pulse Rate Respiratory Rate Blood Pressure Pulse Oximetry 94 L 86 L 86 L 03/08/18 11:05 03/08/18 12:00 03/08/18 14:20 Temperature 99.2 F Pulse Rate 85 85 Respiratory Rate 16 18 Blood Pressure 135/84 Pulse Oximetry 97 92 L 03/08/18 16:00 03/08/18 20:00 03/08/18 20:12 Temperature 97.7 F 97.9 F Pulse Rate 81 88 83 Respiratory Rate 18 19 18 Blood Pressure 137/80 132/83 Pulse Oximetry 98 95 95 03/09/18 00:00 Temperature 98 F Pulse Rate 86 Respiratory Rate 18 Blood Pressure 123/69 Pulse Oximetry 94 L Intake & Output 03/08/18 03/09/18 03/09/18 18:59 06:59 18:59 Intake Total 1820 / 1820 370 / 370 Balance 1820 / 1820 370 / 370 Weight 47.3 kg Intake: IV 1220 / 1220 250 / 250 LR 1000 mL Inj 1,000 ML @ 100 1020 / 1020 mls/hr IV.CONT .Q10H [facility] Rx#: [id number] Azithromycin Inj 500 MG In NS 250 / 250 Inj 250 ML @ 250 mls/hr IV.SIG Q24H [facility] Rx#:[id number] Maxipime Inj 1,000 MG In NS Inj 100 / 100 100 ML @ 200 mls/hr IV.SIG Q24H [facility] Rx#:[id number] Rocephin Inj 1,000 MG In NS Inj 100 / 100 100 ML @ 200 mls/hr IV.SIG Q12H [facility] Rx#:[id number] Oral 600 / 600 120 / 120 Other: # Voids 3 1 - Constitutional mild distress - Routine Respiratory Exam Present: crackles (in bases bilaterally.) - Routine Cardiovascular Exam Present: RRR - Routine Abdominal Exam Present: soft - Routine Extremities Exam Comments: no pedal edema. - Routine Neurological Exam Present: alert, oriented X3 Results - Labs CBC & Chem 7: 03/09/18 04:55 03/09/18 04:55 Laboratory Results - last 24 hr 03/09/18 03/09/18 04:55 04:55 WBC 15.1 H RBC 2.76 L Hgb 8.5 L Hct 26.6 L MCV 96.1 MCH 30.9 MCHC 32.2 RDW 13.4 Plt Count 389 MPV 9.2 Sodium 145 Potassium 3.6 Chloride 112 H Carbon Dioxide 22.2 Anion Gap 11 BUN 43 H Creatinine 3.40 H Estimated GFR 14 L Random Glucose 85 Calcium 9.4 Microbiology 03/07/18 16:25 Blood - Peripheral Aerobic Blood Culture - Preliminary No growth in 1 day 03/07/18 16:25 Blood - Peripheral Anaerobic Blood Culture - Preliminary No growth in 1 day 03/07/18 16:30 Blood - Peripheral Aerobic Blood Culture - Preliminary No growth in 1 day 03/07/18 16:30 Blood - Peripheral Anaerobic Blood Culture - Preliminary No growth in 1 day Assessment and Plan - Assessment (1) Pneumonia Code(s): J18.9 - Pneumonia, unspecified organism Status: Acute Plan: continue with IV antibiotics and neb treatment- follow the cultures.will try to wean off the oxygen- to keep O2 sat > 90%. consulted ID. (2) S/P kidney transplant Code(s): Z94.0 - Kidney transplant status Status: Chronic Plan: renal function seems at her baseline- will continue with immunosuppression therapy- monitor renal function.nephrology following. (3) Hypertension Code(s): I10 - Essential (primary) hypertension Status: Chronic Plan: continue home meds and continue to monitor- will adjust the regimen as needed. (4) Hypernatremia Code(s): E87.0 - Hyperosmolality and hypernatremia Status: Acute Plan: resolved- will monitor. - Plan Discharge Planning: no significant clinical improvement- awaiting ID evaluation- not ready for discharge. (1) Pneumonia Qualifiers: Pneumonia type: due to unspecified organism Laterality: bilateral (3) Hypertension Qualifiers: Hypertension type: essential hypertension Qualified Code(s): I10 - Essential (primary) hypertension
--- NOTE | 2018-03-09 08:50 | P.PNNP ---
Subjective Interval history: Creatinine is slightly better. She is on oxygen, visibly dyspneic. CT shows bilateral Pneumonia. <Ramandeep Webster - Last Filed: 03/09/18 08:43> Physical Exam Vital signs: Vital Signs 03/08/18 09:50 03/08/18 10:57 03/08/18 10:58 Temperature Pulse Rate Respiratory Rate Blood Pressure Pulse Oximetry 94 L 86 L 86 L 03/08/18 11:05 03/08/18 12:00 03/08/18 14:20 Temperature 99.2 F Pulse Rate 85 85 Respiratory Rate 16 18 Blood Pressure 135/84 Pulse Oximetry 97 92 L 03/08/18 16:00 03/08/18 20:00 03/08/18 20:12 Temperature 97.7 F 97.9 F Pulse Rate 81 88 83 Respiratory Rate 18 19 18 Blood Pressure 137/80 132/83 Pulse Oximetry 98 95 95 03/09/18 00:00 Temperature 98 F Pulse Rate 86 Respiratory Rate 18 Blood Pressure 123/69 Pulse Oximetry 94 L Intake & Output 03/08/18 03/09/18 03/09/18 18:59 06:59 18:59 Intake Total 1820 / 1820 370 / 370 Balance 1820 / 1820 370 / 370 Weight 47.3 kg Intake: IV 1220 / 1220 250 / 250 LR 1000 mL Inj 1,000 ML @ 100 1020 / 1020 mls/hr IV.CONT .Q10H [facility] Rx#: [id number] Azithromycin Inj 500 MG In NS 250 / 250 Inj 250 ML @ 250 mls/hr IV.SIG Q24H [facility] Rx#:[id number] Maxipime Inj 1,000 MG In NS Inj 100 / 100 100 ML @ 200 mls/hr IV.SIG Q24H [facility] Rx#:[id number] Rocephin Inj 1,000 MG In NS Inj 100 / 100 100 ML @ 200 mls/hr IV.SIG Q12H [facility] Rx#:[id number] Oral 600 / 600 120 / 120 Other: # Voids 3 1 - Constitutional mild distress - Routine HEENT Exam Head: Present: normocephalic - Routine Neck Exam Present: supple, full ROM - Routine Respiratory Exam Present: rales, crackles. Absent: accessory muscle use, wheezes - Routine Cardiovascular Exam Present: RRR, S1 - Routine Abdominal Exam Present: soft, normoactive bowel sounds - Routine Extremities Exam Absent: edema, calf tenderness, extremity cold to touch - Routine Skin Exam Present: intact - Routine Neurological Exam Present: alert, oriented X3 - Detailed Neurological Exam: Coma Scale Eye Opening: Spontaneous - Routine Psychiatric Exam Present: normal affect, normal thought process <Ramandeep Webster - Last Filed: 03/09/18 08:43> Vital signs: Vital Signs 03/08/18 09:50 03/08/18 10:57 03/08/18 10:58 Temperature Pulse Rate Respiratory Rate Blood Pressure Pulse Oximetry 94 L 86 L 86 L 03/08/18 11:05 03/08/18 12:00 03/08/18 14:20 Temperature 99.2 F Pulse Rate 85 85 Respiratory Rate 16 18 Blood Pressure 135/84 Pulse Oximetry 97 92 L 03/08/18 16:00 03/08/18 20:00 03/08/18 20:12 Temperature 97.7 F 97.9 F Pulse Rate 81 88 83 Respiratory Rate 18 19 18 Blood Pressure 137/80 132/83 Pulse Oximetry 98 95 95 03/09/18 00:00 Temperature 98 F Pulse Rate 86 Respiratory Rate 18 Blood Pressure 123/69 Pulse Oximetry 94 L Intake & Output 03/08/18 03/09/18 03/09/18 18:59 06:59 18:59 Intake Total 1820 / 1820 370 / 370 Balance 1820 / 1820 370 / 370 Weight 47.3 kg Intake: IV 1220 / 1220 250 / 250 LR 1000 mL Inj 1,000 ML @ 100 1020 / 1020 mls/hr IV.CONT .Q10H [facility] Rx#: [id number] Azithromycin Inj 500 MG In NS 250 / 250 Inj 250 ML @ 250 mls/hr IV.SIG Q24H [facility] Rx#:[id number] Maxipime Inj 1,000 MG In NS Inj 100 / 100 100 ML @ 200 mls/hr IV.SIG Q24H [facility] Rx#:[id number] Rocephin Inj 1,000 MG In NS Inj 100 / 100 100 ML @ 200 mls/hr IV.SIG Q12H [facility] Rx#:[id number] Oral 600 / 600 120 / 120 Other: # Voids 3 1 <Fredrick Metzger - Last Filed: 03/09/18 09:27> Assessment and Plan - Assessment (1) S/P kidney transplant Code(s): Z94.0 - Kidney transplant status Status: Chronic Plan: Continue immunosuppressive medications. She is maintained on Myfortic, Prednisone, Nulogix (once monthly infusion, received in past week). Monitor renal function and urine output. Avoid nephrotoxic agents. PO fluids encouraged. (2) Chronic kidney disease, stage 4 (severe) Code(s): N18.4 - Chronic kidney disease, stage 4 (severe) Status: Acute Plan: Renal function improved slightly. Creatinine is at baseline. She has stage IV to V CKD. She was leaning towards PD when dialysis is necessary. No current need for dialysis. Taper off IVF. Avoid nephrotoxic agents. She is non oliguric. (3) Pneumonia Code(s): J18.9 - Pneumonia, unspecified organism Status: Acute Qualifiers: Pneumonia type: due to unspecified organism Laterality: bilateral Lung location: lower lobe of lung Qualified Code(s): J18.1 - Lobar pneumonia, unspecified organism Plan: Antibiotics include Cefepime and Zithromax. Monitor clinically. On oxygen, ween as tolerated. (4) Hyperosmolality and hypernatremia Code(s): E87.0 - Hyperosmolality and hypernatremia Status: Acute Plan: Improved. Water intake seems adequate. Stop IVF. Repeat labs. <Ramandeep Webster - Last Filed: 03/09/18 08:43> - Assessment (1) S/P kidney transplant Code(s): Z94.0 - Kidney transplant status Status: Chronic (2) Chronic kidney disease, stage 4 (severe) Code(s): N18.4 - Chronic kidney disease, stage 4 (severe) Status: Acute (3) Pneumonia Code(s): J18.9 - Pneumonia, unspecified organism Status: Acute Qualifiers: Pneumonia type: due to unspecified organism Laterality: bilateral Lung location: lower lobe of lung Qualified Code(s): J18.1 - Lobar pneumonia, unspecified organism (4) Hyperosmolality and hypernatremia Code(s): E87.0 - Hyperosmolality and hypernatremia Status: Acute - Attending Attestation patient was seen and examined. Agree with above assessment and plan. <Fredrick Metzger - Last Filed: 03/09/18 09:27>
[2018-03-09] MEDS ORDERED: predniSONE 5 MG Tablet PO SCH (09:00)
[2018-03-09] MEDS ORDERED: predniSONE 5 MG Tablet PO ONE (14:00)
[2018-03-09] MEDS ORDERED: Mycophenolate Sodium 360 MG DR Tablet PO SCH (18:00)
--- NOTE | 2018-03-09 18:10 | P.CONID ---
History of Present Illness Service: Infectious Disease Consult date: 03/09/18 Reason for Consult: Pneumonia, h/o kidney transplant Primary Care Provider: Sea Rizo MD Chief Complaint: shortness of breath History of Present Illness: 47/F with h/o kidney transplant in 2010- now with failing transplant came to the hospital because of a two week h/o progressively worsening dyspnea and cough. Cough is non productive. ? low grade fevers at home. Patient did have a inconclusive TB quantiferon test x 2 and was to repeat this month. No recent travel . No pets at home. No sick contacts. Review of Systems Constitutional: Reports body ache(s), Reports excessive sweating, Reports fever( s), Reports lack of energy, Reports malaise, Reports weakness Eyes: Denies blurry vision, Denies bulging eyes, Denies change in vision, Denies double vision Ears, Nose, Mouth, and Throat: Denies abnormal hearing, Denies bleeding gums, Denies bad breath, Denies change in voice, Denies dental pain, Denies difficulty swallowing, Denies dizziness, Denies dry mouth, Denies ear discharge , Denies ear pain, Denies facial pain, Denies headache(s), Denies hearing loss, Denies hoarseness, Denies lip swelling, Denies nosebleed, Denies mouth lesions, Denies mouth pain, Denies nasal congestion, Denies nasal discharge, Denies nasal obstruction, Denies nasal trauma, Denies neck lump, Denies neck pain, Denies nose pain, Denies pain with swallowing, Denies poor balance, Denies post nasal drip, Denies ringing in the ears, Denies sinus pain, Denies sinus pressure , Denies sore throat, Denies throat swelling, Denies tongue swelling, Denies other Cardiovascular: Denies chest pain, Denies chest pain at rest, Denies chest pain with activity, Denies excessive sweating, Denies fainting, Denies fast heart rate, Denies foot swelling, Denies generalized swelling, Denies irregular heart rhythm, Denies leg pain with activity, Denies leg sores, Denies leg swelling, Denies lightheadedness, Denies radiating jaw, neck or arm pain, Denies rapid, pounding, or irregular heartbeat, Denies shortness of breath, Denies shortness of breath with activity, Denies shortness of breath when lying down, Denies shortness of breath causing sudden awakening, Denies slow heart rate, Denies other Respiratory: Reports chest congestion, Reports cough, Reports shortness of breath, Reports shortness of breath with activity, Reports wheezing, Denies change in phlegm color, Denies coughing up blood, Denies pain on inspiration, Denies pain with cough Gastrointestinal: Denies abdominal pain, Denies belching, Denies black, tarry stools, Denies bloating, Denies bright, red blood in stools, Denies change in bowel habits, Denies constant urge to pass stool, Denies change in stools, Denies coffee ground vomit, Denies constipation, Denies cramping, Denies difficulty swallowing, Denies excessive passing of gas, Denies feeling full early, Denies heartburn, Denies incontinent of stools, Denies loose stools, Denies nausea, Denies pain with swallowing, Denies vomiting, Denies vomiting blood, Denies other Genitourinary: Denies blood in urine, Denies difficulty starting urination, Denies pelvic pain, Denies urinary incontinence, Denies urinary urgency Musculoskeletal: Reports body aches, Denies abnormal walking, Denies back pain, Denies decreased muscle mass Skin/Breast: Denies bleeding lesions Neurologic: Denies abnormal walking, Denies loss of vision, Denies memory loss, Denies numbness, Denies radiating pain, Denies restless legs Psychiatric: Denies confusion, Denies depression Endocrine: Denies flushing, Denies increased thirst Hematologic/Lymphatic: Denies easy bleeding, Denies easy bruising PMFSH - History History Provided By: Patient - Medical / Surgical Hx Neg / Unobtainable Medical Problems Denied: Yes - Medical History Medical History: Medical History (Last Updated 03/11/18 @ 14:28 by Corry Corcoran MD) Gall bladder disease High cholesterol Hypertension Renal disease - Surgical History Surgical History: Surgical History (Last Reviewed 03/08/18 @ 16:04 by Daniel Garcia RN) Kidney transplant recipient - Tobacco History Second Hand Smoke Exposure: No Tobacco Use In Past 30 Days: No Smoking Status: Never smoker - Alcohol History How Often Do You Have a Drink Containing Alcohol: Never - Substance Use History Substance History: No History of Abuse - Travel History Recent Travel Out of the Country Within the Last 8 Weeks: No - Immunization History Tetanus Immunization: Unsure Medications and Allergies Active Medications: Active Medications Acetaminophen (Tylenol) 650 mg PO Q4H PRN PRN Reason: Temp > 100.4 Albuterol (Duoneb Neb (Prn)) 1 ampul NEB Q4HR NEB PRN PRN Reason: DYSPNEA Last Admin: 03/08/18 20:11 Dose: 1 ampul Amlodipine Besylate (Norvasc) 5 mg PO DAILY [facility] Last Admin: 03/09/18 08:02 Dose: 5 mg Aspirin (Ecotrin) 81 mg PO DAILY [facility] Last Admin: 03/09/18 08:02 Dose: 81 mg Atorvastatin Calcium (Lipitor) 10 mg PO HS [facility] Last Admin: 03/08/18 20:40 Dose: Not Given Heparin Sodium (Porcine) (Heparin Inj) 5,000 units SQ Q8H [facility] Last Admin: 03/09/18 13:22 Dose: 5,000 units Azithromycin 500 mg/ Sodium (Chloride) 250 mls @ 250 mls/hr IV.SIG Q24H [facility] Last Infusion: 03/08/18 19:20 Dose: Infused Cefepime HCl 1,000 mg/ Sodium (Chloride) 100 mls @ 200 mls/hr IV.SIG Q24H [facility] Last Infusion: 03/09/18 17:17 Dose: Infused Metoclopramide HCl (Reglan Inj) 5 mg IV.PUSH Q6HR PRN; Protocol PRN Reason: NAUSEA OR VOMITING Metoprolol Tartrate (Lopressor) 50 mg PO BID [facility] Last Admin: 03/09/18 08:02 Dose: 50 mg Metoprolol Tartrate (Lopressor) 100 mg PO BID [facility] Mycophenolate Sodium (Myfortic Dr) 360 mg PO BID@0600,1800 [facility] Pt Own - Nulogix 1 each IV.PUSH Q96H [facility] Prednisone (Deltasone) 7.5 mg PO DAILY [facility] Temazepam (Restoril) 15 mg PO HS PRN PRN Reason: INSOMNIA Allergies Allergy/AdvReac Type Severity Reaction Status Date / Time No Known Allergies Allergy NONE Uncoded 03/10/18 08:58 Home Medications Medication Instructions Recorded Confirmed Type amlodipine 5 mg PO DAILY 03/07/18 03/10/18 History aspirin [Aspir-81] 81 mg PO DAILY 03/07/18 03/10/18 History atorvastatin 10 mg PO HS 03/07/18 03/10/18 History belatacept [Nulojix] 10 mg/kg IV Q96H 03/07/18 03/10/18 History mycophenolate sodium [Myfortic] 360 mg PO BID 03/07/18 03/10/18 History potassium chloride 10 meq PO DAILY 03/07/18 03/10/18 History prednisone 7.5 mg PO DAILY 03/07/18 03/10/18 History metoprolol tartrate 100 mg PO BID 03/09/18 03/10/18 History Exam Vital signs: Vital Signs 03/08/18 20:00 03/08/18 20:12 03/09/18 00:00 Temperature 97.9 F 98 F Pulse Rate 88 83 86 Respiratory Rate 19 18 18 Blood Pressure 132/83 123/69 Pulse Oximetry 95 95 94 L 03/09/18 08:00 03/09/18 09:30 03/09/18 11:46 Temperature 98.8 F Pulse Rate 64 Respiratory Rate 20 16 Blood Pressure 158/84 H Pulse Oximetry 92 L 93 L 03/09/18 12:00 03/09/18 14:53 03/09/18 16:00 Temperature 99.7 F H 98.7 F Pulse Rate 86 83 Respiratory Rate 20 20 Blood Pressure 157/52 H 127/83 Pulse Oximetry 95 94 L 95 Intake & Output 03/08/18 03/09/18 03/09/18 18:59 06:59 18:59 Intake Total 1820 / 1820 370 / 370 900 / 900 Balance 1820 / 1820 370 / 370 900 / 900 Weight 47.3 kg Intake: IV 1220 / 1220 250 / 250 900 / 900 LR 1000 mL Inj 1,000 ML @ 100 1020 / 1020 mls/hr IV.CONT .Q10H [facility] Rx#: [id number] 1/2 Normal Saline Inj 1,000 ML 800 / 800 @ 42 mls/hr IV.CONT .[id number] [facility] Rx#:[id number] Azithromycin Inj 500 MG In NS 250 / 250 Inj 250 ML @ 250 mls/hr IV.SIG Q24H [facility] Rx#:[id number] Maxipime Inj 1,000 MG In NS Inj 100 / 100 100 / 100 100 ML @ 200 mls/hr IV.SIG Q24H [facility] Rx#:[id number] Rocephin Inj 1,000 MG In NS Inj 100 / 100 100 ML @ 200 mls/hr IV.SIG Q12H [facility] Rx#:[id number] Oral 600 / 600 120 / 120 Other: # Voids 3 1 Date of Last Bowel Movement 03/09/18 - Constitutional mild distress, moderate distress, chronically ill appearing, cooperative - Routine HEENT Exam Head: Present: normocephalic, atraumatic. Absent: scalp tenderness Eye: Present: EOMI, PERRL. Absent: periorbital swelling ENT: Present: mucous membranes moist, nares patent. Absent: sinus tenderness - Routine Neck Exam Present: supple, full ROM, JVD. Absent: tenderness, swelling - Routine Chest/Breast/Axilla Exam Chest wall: Absent: tenderness, mass - Routine Respiratory Exam Present: rales, crackles, diminished air movement - Routine Cardiovascular Exam Present: RRR, S1, S2 - Routine Abdominal Exam Present: soft, normoactive bowel sounds. Absent: tenderness, distended, rigid, mass - Routine Extremities Exam Present: pulses intact. Absent: cyanosis, clubbing, edema, full ROM - Routine Neurological Exam Present: alert, oriented X3, CN II-XII intact, moving all extremities Results - Labs CBC & Chem 7: 03/11/18 08:25 03/11/18 08:25 Labs: Laboratory Results - last 24 hr 03/09/18 03/09/18 04:55 04:55 WBC 15.1 H RBC 2.76 L Hgb 8.5 L Hct 26.6 L MCV 96.1 MCH 30.9 MCHC 32.2 RDW 13.4 Plt Count 389 MPV 9.2 Sodium 145 Potassium 3.6 Chloride 112 H Carbon Dioxide 22.2 Anion Gap 11 BUN 43 H Creatinine 3.40 H Estimated GFR 14 L Random Glucose 85 Calcium 9.4 Assessment and Plan (1) Pneumonia Status: Acute Code(s): J18.9 - Pneumonia, unspecified organism (2) S/P kidney transplant Status: Chronic Code(s): Z94.0 - Kidney transplant status (3) Hypertension Status: Chronic Code(s): I10 - Essential (primary) hypertension (4) Chronic kidney disease, stage 4 (severe) Status: Acute Code(s): N18.4 - Chronic kidney disease, stage 4 (severe) - Plan 1. Check Blood cultures 2. Check Sputum culture 3. Check TB Quantiferon test- past jh/o inconclusive test 4. Continue IV Cefepime and Azithromycin (1) Pneumonia Qualifiers: Pneumonia type: due to unspecified organism Laterality: bilateral Lung location: lower lobe of lung Qualified Code(s): J18.1 - Lobar pneumonia, unspecified organism (3) Hypertension Qualifiers: Hypertension type: essential hypertension Qualified Code(s): I10 - Essential (primary) hypertension
[2018-03-09] MEDS: Azithromycin Inj 500 MG in Sodium Chlor 0.9% Inj 250 ML IV.SIG SCH (18:23)
[2018-03-09] MEDS: Metoprolol Tartrate 100 MG Tablet PO SCH (21:18)
[2018-03-10] MEDS: Heparin - SQ 10,000 UNITS/ML Vial SQ SCH ×3 (02:32→18:08)
[2018-03-10] MEDS: predniSONE 5 MG Tablet PO SCH (08:20)
[2018-03-10] MEDS: Metoprolol Tartrate 100 MG Tablet PO SCH ×2 (08:20→21:55)
[2018-03-10] MEDS: amLODIPine 5 MG Tablet PO SCH (08:21)
--- NOTE | 2018-03-10 08:58 | P.PN ---
Subjective Interval history: f/u; pneumonia still somewhat ill looking. with sob and currently on two liters of oxygen via N /C- still has some cough- no fever. Physical Exam Vital signs: Vital Signs 03/09/18 09:30 03/09/18 11:46 03/09/18 12:00 Temperature 99.7 F H Pulse Rate 86 Respiratory Rate 16 20 Blood Pressure 157/52 H Pulse Oximetry 93 L 95 03/09/18 14:53 03/09/18 16:00 03/09/18 20:00 Temperature 98.7 F 97.8 F Pulse Rate 83 79 Respiratory Rate 20 20 Blood Pressure 127/83 140/81 Pulse Oximetry 94 L 95 93 L 03/09/18 20:30 03/10/18 00:00 03/10/18 07:22 Temperature 98.3 F Pulse Rate 72 Respiratory Rate 20 18 Blood Pressure 141/82 H Pulse Oximetry 93 L 93 L 03/10/18 08:00 03/10/18 08:27 03/10/18 08:28 Temperature 99.2 F Pulse Rate 82 80 Respiratory Rate 17 24 Blood Pressure 128/73 Pulse Oximetry 93 L 92 L Intake & Output 03/09/18 03/10/18 03/10/18 18:59 06:59 18:59 Intake Total 1380 / 1380 490 / 490 Balance 1380 / 1380 490 / 490 Weight 47.2 kg Intake: IV 900 / 900 250 / 250 1/2 Normal Saline Inj 1,000 ML 800 / 800 @ 42 mls/hr IV.CONT .[id number] [facility] Rx#:[id number] Azithromycin Inj 500 MG In NS 250 / 250 Inj 250 ML @ 250 mls/hr IV.SIG Q24H [facility] Rx#:[id number] Maxipime Inj 1,000 MG In NS Inj 100 / 100 100 ML @ 200 mls/hr IV.SIG Q24H [facility] Rx#:[id number] Oral 480 / 480 240 / 240 Other: # Voids 3 2 Date of Last Bowel Movement 03/09/18 03/09/18 # Bowel Movements 1 - Constitutional mild distress - Routine Respiratory Exam Present: CTA bilaterally, diminished air movement - Routine Cardiovascular Exam Present: RRR - Routine Abdominal Exam Present: soft - Routine Neurological Exam Present: alert, oriented X3 Results - Labs CBC & Chem 7: 03/09/18 04:55 03/09/18 04:55 Microbiology 03/07/18 16:25 Blood - Peripheral Aerobic Blood Culture - Preliminary No growth in 2 days 03/07/18 16:25 Blood - Peripheral Anaerobic Blood Culture - Preliminary No growth in 2 days 03/07/18 16:30 Blood - Peripheral Aerobic Blood Culture - Preliminary No growth in 2 days 03/07/18 16:30 Blood - Peripheral Anaerobic Blood Culture - Preliminary No growth in 2 days Assessment and Plan - Assessment (1) Pneumonia Code(s): J18.9 - Pneumonia, unspecified organism Status: Acute Plan: continue with IV antibiotics and neb treatment- blood cultures negative so far. will try to wean off the oxygen- to keep O2 sat > 90%. ID consult appreciated. (2) S/P kidney transplant Code(s): Z94.0 - Kidney transplant status Status: Chronic Plan: renal function seems at her baseline- will continue with immunosuppression therapy- monitor renal function.nephrology following. (3) Hypertension Code(s): I10 - Essential (primary) hypertension Status: Chronic Plan: continue home meds and continue to monitor- will adjust the regimen as needed. (4) Hypernatremia Code(s): E87.0 - Hyperosmolality and hypernatremia Status: Acute Plan: resolved- will monitor. - Plan Discharge Planning: still ill-looking- ID following- not ready for discharge. (1) Pneumonia Qualifiers: Pneumonia type: due to unspecified organism Laterality: bilateral Lung location: lower lobe of lung Qualified Code(s): J18.1 - Lobar pneumonia, unspecified organism (3) Hypertension Qualifiers: Hypertension type: essential hypertension Qualified Code(s): I10 - Essential (primary) hypertension
--- NOTE | 2018-03-10 13:20 | P.PNNP ---
Subjective Interval history: Visibly dyspneic today. Hypoxic despite oxygen. Labs were not obtained today. <Ramandeep Webster - Last Filed: 03/10/18 13:11> Physical Exam Vital signs: Vital Signs 03/09/18 14:53 03/09/18 16:00 03/09/18 20:00 Temperature 98.7 F 97.8 F Pulse Rate 83 79 Respiratory Rate 20 20 Blood Pressure 127/83 140/81 Pulse Oximetry 94 L 95 93 L 03/09/18 20:30 03/10/18 00:00 03/10/18 07:22 Temperature 98.3 F Pulse Rate 72 Respiratory Rate 20 18 Blood Pressure 141/82 H Pulse Oximetry 93 L 93 L 03/10/18 08:00 03/10/18 08:27 03/10/18 08:28 Temperature 99.2 F Pulse Rate 82 80 Respiratory Rate 18 24 Blood Pressure 128/73 Pulse Oximetry 93 L 92 L Intake & Output 03/09/18 03/10/18 03/10/18 18:59 06:59 18:59 Intake Total 1380 / 1380 490 / 490 100 / 100 Balance 1380 / 1380 490 / 490 100 / 100 Weight 47.2 kg Intake: IV 900 / 900 250 / 250 100 / 100 1/2 Normal Saline Inj 1,000 ML 800 / 800 @ 42 mls/hr IV.CONT .[id number] [facility]LV[facility] Rx#:[id number] Azithromycin Inj 500 MG In NS 250 / 250 Inj 250 ML @ 250 mls/hr IV.SIG Q24H [facility]LV[facility] Rx#:[id number] Maxipime Inj 1,000 MG In NS Inj 100 / 100 100 / 100 100 ML @ 200 mls/hr IV.SIG Q24H OLV[facility] Rx#:[id number] Oral 480 / 480 240 / 240 Other: # Voids 3 2 Date of Last Bowel Movement 03/09/18 03/09/18 # Bowel Movements 1 - Constitutional mild distress, average body habitus - Routine HEENT Exam Head: Present: normocephalic ENT: Present: mucous membranes moist - Routine Neck Exam Present: supple, full ROM. Absent: JVD, carotid bruit - Routine Respiratory Exam Present: rales, crackles Comments: coughing on exam - Routine Cardiovascular Exam Present: RRR, S1, S2 - Routine Abdominal Exam Present: soft, normoactive bowel sounds - Routine Extremities Exam Present: pulses intact. Absent: edema - Routine Skin Exam Present: intact, warm - Routine Neurological Exam Present: alert, oriented X3, CN II-XII intact - Detailed Neurological Exam: Coma Scale Eye Opening: Spontaneous Verbal Response: Oriented Motor Response: None Mya Coma Scale Total: 10 - Routine Psychiatric Exam Present: normal affect, normal thought process <Ramandeep Webster - Last Filed: 03/10/18 13:11> Vital signs: Vital Signs 03/09/18 16:00 03/09/18 20:00 03/09/18 20:30 Temperature 98.7 F 97.8 F Pulse Rate 83 79 Respiratory Rate 20 20 Blood Pressure 127/83 140/81 Pulse Oximetry 95 93 L 93 L 03/10/18 00:00 03/10/18 07:22 03/10/18 08:00 Temperature 98.3 F 99.2 F Pulse Rate 72 82 Respiratory Rate 20 18 18 Blood Pressure 141/82 H 128/73 Pulse Oximetry 93 L 93 L 03/10/18 08:27 03/10/18 08:28 03/10/18 12:00 Temperature 99.3 F Pulse Rate 80 84 Respiratory Rate 24 17 Blood Pressure 156/86 H Pulse Oximetry 92 L 92 L 03/10/18 14:29 Temperature Pulse Rate 80 Respiratory Rate 20 Blood Pressure Pulse Oximetry Intake & Output 03/09/18 03/10/18 03/10/18 18:59 06:59 18:59 Intake Total 1380 / 1380 490 / 490 100 / 100 Balance 1380 / 1380 490 / 490 100 / 100 Weight 47.2 kg Intake: IV 900 / 900 250 / 250 100 / 100 1/2 Normal Saline Inj 1,000 ML 800 / 800 @ 42 mls/hr IV.CONT .[id number] [facility]LV[facility] Rx#:[id number] Azithromycin Inj 500 MG In NS 250 / 250 Inj 250 ML @ 250 mls/hr IV.SIG Q24H [facility]LV[facility] Rx#:[id number] Maxipime Inj 1,000 MG In NS Inj 100 / 100 100 / 100 100 ML @ 200 mls/hr IV.SIG Q24H OLVIN Rx#:[id number] Oral 480 / 480 240 / 240 Other: # Voids 3 2 Date of Last Bowel Movement 07/05/18 07/05/18 # Bowel Movements 1 <Hoskote,Fredrick - Last Filed: 03/10/18 15:02> Assessment and Plan - Assessment (1) S/P kidney transplant Code(s): Z94.0 - Kidney transplant status Status: Chronic Plan: Living unrelated transplant from 2010. Continue immunosuppressive medications. She is maintained on Myfortic, Prednisone, Nulogix (once monthly infusion, received in past week). The doses here were changed to usual home doses. Monitor renal function and urine output. Labs are ordered for tomorrow. Avoid nephrotoxic agents. PO fluids encouraged. Off IVF. (2) Chronic kidney disease, stage 4 (severe) Code(s): N18.4 - Chronic kidney disease, stage 4 (severe) Status: Acute Plan: Renal function has improved, most likely to baseline. She has stage IV to V CKD. She was leaning towards PD when dialysis is necessary. Still no current need for dialysis. Avoid nephrotoxic agents. She is making urine. (3) Pneumonia Code(s): J18.9 - Pneumonia, unspecified organism Status: Acute Qualifiers: Pneumonia type: due to unspecified organism Laterality: bilateral Lung location: lower lobe of lung Qualified Code(s): J18.1 - Lobar pneumonia, unspecified organism Plan: Clinically worse. Low grade fever overnight and today. Also hypoxic with oxygen. RT assistance appreciated. Antibiotics include Cefepime and Zithromax. Monitor clinically. Ween oxygen if able. Incentive spirometry encouraged. (4) Hyperosmolality and hypernatremia Code(s): E87.0 - Hyperosmolality and hypernatremia Status: Acute Plan: Corrected. Was most likely due to insensible water losses. Follow BMP. PO fluids encouraged. - Plan Discussed Condition With: Patient, primary RN <Ramandeep Webster - Last Filed: 03/10/18 13:11> - Assessment (1) S/P kidney transplant Code(s): Z94.0 - Kidney transplant status Status: Chronic (2) Chronic kidney disease, stage 4 (severe) Code(s): N18.4 - Chronic kidney disease, stage 4 (severe) Status: Acute (3) Pneumonia Code(s): J18.9 - Pneumonia, unspecified organism Status: Acute Qualifiers: Pneumonia type: due to unspecified organism Laterality: bilateral Lung location: lower lobe of lung Qualified Code(s): J18.1 - Lobar pneumonia, unspecified organism (4) Hyperosmolality and hypernatremia Code(s): E87.0 - Hyperosmolality and hypernatremia Status: Acute - Attending Attestation patient was seen and examined. Agree with above assessment and plan. Consider transfer to [place] in [facility]. <Fredrick Metzger - Last Filed: 03/10/18 15:02>
--- NOTE | 2018-03-10 15:54 | P.PNID ---
Subjective Remarks: ID FU DR OCHOA NO FEVER + SOB + COUGH BUT VERY DRY + NO FEELING BETTER Antibiotics: CEFEPIME/ ZITHROMAX Allergies/Adverse Reactions: Allergies No Known Allergies Allergy (Uncoded 03/10/18 08:58) NONE Objective Vital Signs 03/09/18 16:00 03/09/18 20:00 03/09/18 20:30 Temperature 98.7 F 97.8 F Pulse Rate 83 79 Respiratory Rate 20 20 Blood Pressure 127/83 140/81 Pulse Oximetry 95 93 L 93 L 03/10/18 00:00 03/10/18 07:22 03/10/18 08:00 Temperature 98.3 F 99.2 F Pulse Rate 72 82 Respiratory Rate 20 18 18 Blood Pressure 141/82 H 128/73 Pulse Oximetry 93 L 93 L 03/10/18 08:27 03/10/18 08:28 03/10/18 12:00 Temperature 99.3 F Pulse Rate 80 84 Respiratory Rate 24 17 Blood Pressure 156/86 H Pulse Oximetry 92 L 92 L 03/10/18 14:29 Temperature Pulse Rate 80 Respiratory Rate 20 Blood Pressure Pulse Oximetry Intake & Output 03/09/18 03/10/18 03/10/18 18:59 06:59 18:59 Intake Total 1380 / 1380 490 / 490 100 / 100 Balance 1380 / 1380 490 / 490 100 / 100 Weight 47.2 kg Intake: IV 900 / 900 250 / 250 100 / 100 1/2 Normal Saline Inj 1,000 ML 800 / 800 @ 42 mls/hr IV.CONT .[id number] OLVIN Rx#:[id number] Azithromycin Inj 500 MG In NS 250 / 250 Inj 250 ML @ 250 mls/hr IV.SIG Q24H OLVIN Rx#:[id number] Maxipime Inj 1,000 MG In NS Inj 100 / 100 100 / 100 100 ML @ 200 mls/hr IV.SIG Q24H OLVIN Rx#:[id number] Oral 480 / 480 240 / 240 Other: # Voids 3 2 Date of Last Bowel Movement 03/09/18 03/09/18 # Bowel Movements 1 03/07/18 16:25 Blood - Peripheral Aerobic Blood Culture - Preliminary No growth in 3 days 03/07/18 16:25 Blood - Peripheral Anaerobic Blood Culture - Preliminary No growth in 3 days 03/07/18 16:30 Blood - Peripheral Aerobic Blood Culture - Preliminary No growth in 3 days 03/07/18 16:30 Blood - Peripheral Anaerobic Blood Culture - Preliminary No growth in 3 days Lab - Hematology Results 03/09/18 04:55 WBC 15.1 H RBC 2.76 L Hgb 8.5 L Hct 26.6 L MCV 96.1 MCH 30.9 MCHC 32.2 RDW 13.4 Plt Count 389 MPV 9.2 Lab - Chemistry Results 03/09/18 04:55 Sodium 145 Potassium 3.6 Chloride 112 H Carbon Dioxide 22.2 Anion Gap 11 BUN 43 H Creatinine 3.40 H Estimated GFR 14 L Random Glucose 85 Calcium 9.4 Imaging: ITS Impressions Chest CT 03/07/18 17:26 CONCLUSION: 1. Bilateral pulmonary infiltrates likely infectious in etiology. Noncardiogenic pulmonary edema could have a similar appearance . Physical Exam: AWAKE / OX 3 PERRL NS CHEST: COARSE LUNG SOUNDS EQUAL NO WHEEZES OR CRACKLES CARDIAC: RRR ABDOMEN: SOFT ACTIVE BS EXT. NO SWELLING 1. PNEUMONIA 2. HISTORY OF RENAL TRANSPLANT 3. RENAL INSUFFICIENCY RECOMMENDATION PLAN TO CONTINUE CEFEPIME/ STOP ZITHROMAX START DOXYCYLINE WILL ALSO ADD FLUCONAZOLE AGREE WITH PULM CONSULT AND HAVING BRONCH FOLLOW CULTURES CLOSELY FURTHER REC TO FOLLOW
[2018-03-11] MEDS: Heparin - SQ 10,000 UNITS/ML Vial SQ SCH ×3 (03:12→18:39)
--- NOTE | 2018-03-11 07:46 | P.PN ---
Subjective Interval history: f/u; pneumonia clinically no improvement- still on oxygen via N/C- and still with sob. afebrile. Physical Exam Vital signs: Vital Signs 03/10/18 08:00 03/10/18 08:27 03/10/18 08:28 Temperature 99.2 F Pulse Rate 82 80 Respiratory Rate 18 24 Blood Pressure 128/73 Pulse Oximetry 93 L 92 L 03/10/18 12:00 03/10/18 14:29 03/10/18 16:00 Temperature 99.3 F 99.1 F Pulse Rate 84 80 89 Respiratory Rate 17 20 19 Blood Pressure 156/86 H 147/83 H Pulse Oximetry 92 L 92 L 03/10/18 20:00 03/10/18 20:10 03/11/18 00:00 Temperature 96.8 F L 99.5 F Pulse Rate 106 H 91 H 79 Respiratory Rate 20 22 20 Blood Pressure 143/82 H 128/76 Pulse Oximetry 93 L 94 L Intake & Output 03/10/18 03/11/18 03/11/18 18:59 06:59 18:59 Intake Total 340 / 340 510 / 510 Balance 340 / 340 510 / 510 Intake: IV 100 / 100 150 / 150 Maxipime Inj 1,000 MG In NS Inj 100 / 100 100 ML @ 200 mls/hr IV.SIG Q24H OLVIN Rx#:[id number] Doxy 100 Inj 100 MG In NS Inj 100 / 100 100 ML @ 100 mls/hr IV.SIG Q12H OLVIN Rx#:[id number] Diflucan 100 mg Premix Bag 50 50 / 50 ML @ 100 mls/hr IV.SIG Q24H OLVIN Rx#:[id number] Oral 240 / 240 360 / 360 Other: Date of Last Bowel Movement 03/09/18 - Constitutional moderate distress - Routine Respiratory Exam Present: rhonchi (in bases bilaterally.) - Routine Cardiovascular Exam Present: RRR - Routine Abdominal Exam Present: soft - Routine Extremities Exam Comments: no pedal edema. - Routine Neurological Exam Present: alert, oriented X3 Results - Labs CBC & Chem 7: 03/09/18 04:55 03/09/18 04:55 Microbiology 03/07/18 16:25 Blood - Peripheral Aerobic Blood Culture - Preliminary No growth in 3 days 03/07/18 16:25 Blood - Peripheral Anaerobic Blood Culture - Preliminary No growth in 3 days 03/07/18 16:30 Blood - Peripheral Aerobic Blood Culture - Preliminary No growth in 3 days 03/07/18 16:30 Blood - Peripheral Anaerobic Blood Culture - Preliminary No growth in 3 days Assessment and Plan - Assessment (1) Pneumonia Code(s): J18.9 - Pneumonia, unspecified organism Status: Acute Plan: continue Cefepime- started on Doxycycline and Fluconazole- keep on oxygen to keep O2 sat > 90%. continue neb treatment. ID f/u appreciated. pulmonary consulted; might need bronchoscopy. will repeat CXR today. (2) S/P kidney transplant Code(s): Z94.0 - Kidney transplant status Status: Chronic Plan: renal function seems at her baseline- will continue with immunosuppression therapy- monitor renal function.nephrology following. (3) Hypertension Code(s): I10 - Essential (primary) hypertension Status: Chronic Plan: continue home meds and continue to monitor- will adjust the regimen as needed. (4) Hypernatremia Code(s): E87.0 - Hyperosmolality and hypernatremia Status: Acute Plan: resolved- will monitor. - Plan Discharge Planning: still ill-looking- ID following-pulmonary consulted- not ready for discharge. (1) Pneumonia Qualifiers: Pneumonia type: due to unspecified organism Laterality: bilateral Lung location: lower lobe of lung Qualified Code(s): J18.1 - Lobar pneumonia, unspecified organism (3) Hypertension Qualifiers: Hypertension type: essential hypertension Qualified Code(s): I10 - Essential (primary) hypertension
--- NOTE | 2018-03-11 08:15 | XR ---
EXAM DATE: 03/11/2018 8:11 AM EDT AGE/SEX: 47 years / Female INDICATIONS: Short of breath. CLINICAL DATA: This is the patient's subsequent encounter. Patient reports that signs and symptoms h ave been present for 1 week and indicates a pain score of 0/10. MEDICAL/SURGICAL HISTORY: Hypertension. Gallbladder disease. . Kidney transplant. COMPARISON: POI, XR CHEST PA AND LAT, 10/05/2017. . FINDINGS: A single AP view of the chest demonstrates patchy bibasilar densities. Heart normal in size. The car diomediastinal contours are unremarkable. Osseous structures are intact. CONCLUSION: Bibasilar patchy infiltrates. Treatment and follow-up to resolution recommended. Electronically signed by: Nirmal Candelaria MD 03/11/2018 8:14 AM EDT
[2018-03-11 09:19] LABS: Hematocrit 28.2 % (35.0-46.0); Hemoglobin 8.9 gm/dL (11.6-15.3); Mean Corpuscular HGB Conc 31.5 % (32.0-36.0); Mean Corpuscular Hemoglobin 30.1 pg (27.0-34.0); Mean Corpuscular Volume 95.7 fL (80.0-100.0); Mean Platelet Volume 8.7 fL (7.0-11.0); Platelet Count 393 th/mm3 (150-450); Red Blood Count 2.94 mil/mm3 (4.00-5.30); Red Cell Distribution Width 13.3 % (11.6-17.2); White Blood Count 18.3 th/mm3 (4.0-11.0)
[2018-03-11] MEDS: predniSONE 5 MG Tablet PO SCH (09:27)
[2018-03-11] MEDS: Metoprolol Tartrate 100 MG Tablet PO SCH ×2 (09:28→20:38)
[2018-03-11] MEDS: amLODIPine 5 MG Tablet PO SCH (09:28)
[2018-03-11 09:46] LABS: Calcium 9.6 mg/dL (8.5-10.1)
[2018-03-11 09:57] LABS: Potassium 3.3 meq/L (3.5-5.1)
--- NOTE | 2018-03-11 14:22 | P.PNID ---
Subjective Remarks: Still quite short of breath Dry cough No fever No appetite Antibiotics: CEFEPIME/ Doxy and Fluconazole Lines: Peripheral IV line Past Medical History: H/o kidney transplant Allergies/Adverse Reactions: Allergies No Known Allergies Allergy (Uncoded 03/10/18 08:58) NONE Objective Vital Signs 03/10/18 14:29 03/10/18 16:00 03/10/18 20:00 Temperature 99.1 F 96.8 F L Pulse Rate 80 89 106 H Respiratory Rate 20 19 20 Blood Pressure 147/83 H 143/82 H Pulse Oximetry 92 L 03/10/18 20:10 03/11/18 00:00 03/11/18 08:00 Temperature 99.5 F 98 F Pulse Rate 91 H 79 75 Respiratory Rate 22 20 20 Blood Pressure 128/76 144/81 H Pulse Oximetry 93 L 94 L 95 03/11/18 08:45 Temperature Pulse Rate Respiratory Rate Blood Pressure Pulse Oximetry 98 Intake & Output 03/10/18 03/11/18 03/11/18 18:59 06:59 18:59 Intake Total 340 / 340 600 / 600 200 / 200 Output Total Balance 340 / 340 599 / 599 200 / 200 Weight 47.4 kg Intake: IV 100 / 100 150 / 150 200 / 200 Maxipime Inj 1,000 MG In NS Inj 100 / 100 100 / 100 100 ML @ 200 mls/hr IV.SIG Q24H OLVIN Rx#:[id number] Doxy 100 Inj 100 MG In NS Inj 100 / 100 100 / 100 100 ML @ 100 mls/hr IV.SIG Q12H OLVIN Rx#:[id number] Diflucan 100 mg Premix Bag 50 50 / 50 ML @ 100 mls/hr IV.SIG Q24H OLVIN Rx#:[id number] Oral 240 / 240 450 / 450 Output: Urine Other: Date of Last Bowel Movement 03/09/18 03/07/18 16:25 Blood - Peripheral Aerobic Blood Culture - Preliminary No growth in 4 days 03/07/18 16:25 Blood - Peripheral Anaerobic Blood Culture - Preliminary No growth in 4 days 03/07/18 16:30 Blood - Peripheral Aerobic Blood Culture - Preliminary No growth in 4 days 03/07/18 16:30 Blood - Peripheral Anaerobic Blood Culture - Preliminary No growth in 4 days Lab - Hematology Results 03/11/18 08:25 WBC 18.3 H RBC 2.94 L Hgb 8.9 L Hct 28.2 L MCV 95.7 MCH 30.1 MCHC 31.5 L RDW 13.3 Plt Count 393 MPV 8.7 Lab - Chemistry Results 03/11/18 08:25 Sodium 147 H Potassium 3.3 L Chloride 114 H Carbon Dioxide 21.0 Anion Gap 12 BUN 29 H Creatinine 3.30 H Estimated GFR 15 L Random Glucose 119 H Calcium 9.6 Imaging: ITS Impressions Chest CT 03/07/18 17:26 CONCLUSION: 1. Bilateral pulmonary infiltrates likely infectious in etiology. Noncardiogenic pulmonary edema could have a similar appearance . Chest X-Ray 03/11/18 00:00 CONCLUSION: Bibasilar patchy infiltrates. Treatment and follow-up to resolution recommended. Physical Exam: AWAKE / OX 3 , stting up in chair Pallor, No icterus PERRL NS CHEST: COARSE LUNG SOUNDS EQUAL NO WHEEZES , Crepts in bases CARDIAC: RRR ABDOMEN: SOFT ACTIVE BS Lower extremity: No edema [employer] HAND: Alert, no focal deficit No rash Assessment and Plan (1) Pneumonia Status: Acute Code(s): J18.9 - Pneumonia, unspecified organism (2) S/P kidney transplant Status: Chronic Code(s): Z94.0 - Kidney transplant status (3) Hypertension Status: Chronic Code(s): I10 - Essential (primary) hypertension (4) Chronic kidney disease, stage 4 (severe) Status: Acute Code(s): N18.4 - Chronic kidney disease, stage 4 (severe) - Plan 1. Blood cultures remain negative 2. Could not get sputum 3.Pending TB Quantiferon test- past jh/o inconclusive test 4. Continue IV Cefepime and Doxycycline 5. Continue Fluconazole 6. Pulmonary evaluation for possible bronchoscopy 7. Check CMV serology (1) Pneumonia Qualifiers: Pneumonia type: due to unspecified organism Laterality: bilateral Lung location: lower lobe of lung Qualified Code(s): J18.1 - Lobar pneumonia, unspecified organism (3) Hypertension Qualifiers: Hypertension type: essential hypertension Qualified Code(s): I10 - Essential (primary) hypertension
--- NOTE | 2018-03-11 15:50 | MB ---
cc: Kimberlee Turcios MD DATE: 03/11/2018 HISTORY OF PRESENT ILLNESS: Ms. Richards is a 47-year-old white female who underwent a kidney transplant in 2010 for hypertensive renal failure. She did well until about a year ago when the creatinine began to rise. She had been on mycophenolate. Prednisone was added to that. Creatinine is stabilized about 3.5. She presented to the hospital with a 1-week history of increased shortness of breath, cough with some chest discomfort, but no purulent sputum. She had had fever, has a low-grade temperature here in the hospital. She was seen by Dr. Corry Corcoran for pneumonia in an immunocompromised patient and begun on Zithromax, cefepime, and doxycycline, also on fluconazole. CT of her chest revealed bilateral patchy infiltrates, no effusions. She has had no edema. She has been unable to produce adequate sputum. Blood cultures have been negative. TB QuantiFERON is also pending. White blood cell count is hovering from 14,000-18,000, hemoglobin is 8.9, platelet count is normal. Liver functions are normal. BUN is 43, creatinine 3.4, down from 3.7 on admission. The patient has had no recent travel. No animal exposures. Does not smoke, does not use illicit drugs. No other inhalation exposures. PAST MEDICAL HISTORY: Other than hypertension and the renal transplant, negative. She has a local fitness coach. The surgery was done in [place]. REVIEW OF SYSTEMS: No nausea or vomiting. No abdominal pain. No recent diarrhea. No headache. No skin rash. Some discomfort on deep inspiration substernally. PHYSICAL EXAMINATION: VITAL SIGNS: 99.5 degrees, pulse is 80, respirations 22, 140/80, 2 liters, sat 98%. HEENT: Sclerae anicteric. Mucous membranes are moist. No oral ulcerations. NECK: Veins are flat. CHEST: Completely clear. No wheezes or rales. No congestion. CARDIOVASCULAR: Regular rhythm. No harsh murmur. ABDOMEN: Soft. EXTREMITIES: No peripheral edema or calf tenderness. No clubbing. DISCUSSION: Ms. Richards presents immunocompromised with renal transplant, rising creatinine, pneumonia of unclear etiology. Dr. Corcoran has seen her and would like additional information because she is unable to produce sputum. I have reviewed bronchoscopy with the patient, which I think is indicated, explained to her the procedure in simple terms including the potential for complications. I do not plan on biopsying her lung particularly in light of the elevated creatinine as the risk of bleeding is increased. We plan to lavage her lung and send it for all the appropriate specimens. Potential complications include respiratory insufficiency and the need for ventilatory support. After reviewing this thoroughly with the patient, she is agreeable to proceed. Further diagnostic and/or therapeutic intervention will depend on her response and ongoing clinical course. R. MD STEFANIA Chavira/LULU , 03:23 PM , 03:48 PM
[2018-03-12] MEDS: Heparin - SQ 10,000 UNITS/ML Vial SQ SCH ×3 (01:51→21:59)
[2018-03-12 07:34] LABS: Hematocrit 24.8 % (35.0-46.0); Hemoglobin 8.3 gm/dL (11.6-15.3); Mean Corpuscular HGB Conc 33.6 % (32.0-36.0); Mean Corpuscular Hemoglobin 31.3 pg (27.0-34.0); Mean Corpuscular Volume 93.1 fL (80.0-100.0); Mean Platelet Volume 9.1 fL (7.0-11.0); Platelet Count 352 th/mm3 (150-450); Red Blood Count 2.66 mil/mm3 (4.00-5.30); White Blood Count 16.1 th/mm3 (4.0-11.0)
[2018-03-12 07:37] LABS: Chloride 116 meq/L (98-107); Potassium 3.4 meq/L (3.5-5.1); Sodium 147 meq/L (136-145)
[2018-03-12 07:42] LABS: Anion Gap 11 meq/L (5-15); Blood Urea Nitrogen 29 mg/dL (7-18); Calcium 9.7 mg/dL (8.5-10.1); Carbon Dioxide 20.2 meq/L (21.0-32.0); Glucose,Random 98 mg/dL (74-106)
[2018-03-12 07:45] LABS: Alanine Aminotransferase 8 U/L (10-53); Aspartate Aminotransferase 8 U/L (15-37); Glomerular Filtration Rate 15 mL/min (>89)
[2018-03-12 07:47] LABS: Total Protein 5.7 g/dL (6.4-8.2)
[2018-03-12 07:48] LABS: Alkaline Phosphatase 70 U/L (45-117)
--- NOTE | 2018-03-12 08:08 | P.PN ---
Subjective Interval history: f/u; pneumonia in moderate respiratory distress. had to increase oxygen to three liters via N/ C. no improvement clinically. remains afebrile. has occasional dry cough- denies pain. Physical Exam Vital signs: Vital Signs 03/11/18 08:45 03/11/18 16:00 03/11/18 17:19 Temperature 97.4 F L 99.1 F Pulse Rate 79 80 Respiratory Rate 20 Blood Pressure 139/78 135/79 Pulse Oximetry 98 92 L 90 L 03/11/18 20:52 03/11/18 22:25 03/12/18 00:00 Temperature 98.7 F 98.1 F Pulse Rate 81 70 Respiratory Rate 20 16 Blood Pressure 142/84 H 149/87 H Pulse Oximetry 92 L 93 L 93 L 03/12/18 07:55 Temperature 99.0 F Pulse Rate 79 Respiratory Rate 18 Blood Pressure 159/85 H Pulse Oximetry 93 L Intake & Output 03/11/18 03/12/18 03/12/18 18:59 06:59 18:59 Intake Total 740 / 740 100 / 100 50 / 50 Balance 740 / 740 100 / 100 50 / 50 Intake: IV 300 / 300 100 / 100 50 / 50 Maxipime Inj 1,000 MG In NS Inj 100 / 100 100 ML @ 200 mls/hr IV.SIG Q24H OLVIN Rx#:[id number] Doxy 100 Inj 100 MG In NS Inj 200 / 200 100 / 100 100 ML @ 100 mls/hr IV.SIG Q12H OLVIN Rx#:[id number] Diflucan 100 mg Premix Bag 50 50 / 50 ML @ 100 mls/hr IV.SIG Q24H OLVIN Rx#:[id number] Oral 440 / 440 Other: # Voids 3 # Bowel Movements 1 - Constitutional moderate distress - Routine Respiratory Exam Present: diminished air movement - Routine Cardiovascular Exam Present: RRR - Routine Abdominal Exam Present: soft - Routine Extremities Exam Comments: no pedal edema. - Routine Neurological Exam Present: alert, oriented X3 Results - Labs CBC & Chem 7: 03/12/18 06:05 03/12/18 06:05 Laboratory Results - last 24 hr 03/11/18 03/11/18 03/12/18 08:25 08:25 06:05 WBC 18.3 H 16.1 H RBC 2.94 L 2.66 L Hgb 8.9 L 8.3 L Hct 28.2 L 24.8 L MCV 95.7 93.1 MCH 30.1 31.3 MCHC 31.5 L 33.6 RDW 13.3 14.0 Plt Count 393 352 MPV 8.7 9.1 Sodium 147 H Potassium 3.3 L Chloride 114 H Carbon Dioxide 21.0 Anion Gap 12 BUN 29 H Creatinine 3.30 H Estimated GFR 15 L Random Glucose 119 H Calcium 9.6 Total Bilirubin AST ALT Alkaline Phosphatase Total Protein Albumin 03/12/18 06:05 WBC RBC Hgb Hct MCV MCH MCHC RDW Plt Count MPV Sodium 147 H Potassium 3.4 L Chloride 116 H Carbon Dioxide 20.2 L Anion Gap 11 BUN 29 H Creatinine 3.20 H Estimated GFR 15 L Random Glucose 98 Calcium 9.7 Total Bilirubin 0.4 AST 8 L ALT 8 L Alkaline Phosphatase 70 Total Protein 5.7 L D Albumin 2.0 L Microbiology 03/07/18 16:25 Blood - Peripheral Aerobic Blood Culture - Preliminary No growth in 4 days 03/07/18 16:25 Blood - Peripheral Anaerobic Blood Culture - Preliminary No growth in 4 days 03/07/18 16:30 Blood - Peripheral Aerobic Blood Culture - Preliminary No growth in 4 days 03/07/18 16:30 Blood - Peripheral Anaerobic Blood Culture - Preliminary No growth in 4 days - Imaging Impressions Chest X-Ray 03/11/18 00:00 CONCLUSION: Bibasilar patchy infiltrates. Treatment and follow-up to resolution recommended. Assessment and Plan - Assessment (1) Pneumonia Code(s): J18.9 - Pneumonia, unspecified organism Status: Acute Plan: continue Cefepime, Doxycycline and Fluconazole-blood cultures negative- TB Quantiferon test pending. keep on oxygen to keep O2 sat > 90%. continue neb treatment. ID f/u appreciated. pulmonary consulted; plan for bronchoscopy tomorrow. (2) Acute hypoxemic respiratory failure Code(s): J96.01 - Acute respiratory failure with hypoxia Status: Acute Plan: keep on oxygen to keep O2 sat> 90%- continue neb treatment; treat pneumonia as noted above. bronchoscopy tomorrow. (3) S/P kidney transplant Code(s): Z94.0 - Kidney transplant status Status: Chronic Plan: renal function seems at her baseline- will continue with immunosuppression therapy- monitor renal function.nephrology following. (4) Hypertension Code(s): I10 - Essential (primary) hypertension Status: Chronic Plan: continue home meds and continue to monitor- will adjust the regimen as needed. (5) Hypernatremia Code(s): E87.0 - Hyperosmolality and hypernatremia Status: Acute Plan: will monitor.nephrology following. - Plan Discharge Planning: still ill-looking- ID following-pulmonary consulted- patient will be transferred to the main campus for bronchoscopy per my d/w . (1) Pneumonia Qualifiers: Pneumonia type: due to unspecified organism Laterality: bilateral Lung location: lower lobe of lung Qualified Code(s): J18.1 - Lobar pneumonia, unspecified organism (4) Hypertension Qualifiers: Hypertension type: essential hypertension Qualified Code(s): I10 - Essential (primary) hypertension
[2018-03-12] MEDS: amLODIPine 5 MG Tablet PO SCH (08:23)
[2018-03-12] MEDS: predniSONE 5 MG Tablet PO SCH (08:23)
[2018-03-12] MEDS: Metoprolol Tartrate 100 MG Tablet PO SCH ×2 (08:23→22:00)
[2018-03-12] MEDS ORDERED: RESP: Albuterol Concentrated 2.5 MG/0.5 ML Neb NEB SCH (11:30)
[2018-03-12] MEDS ORDERED: RESP: Lidocaine PF 4% 5 ML Neb NEB SCH (11:30)
[2018-03-12 12:45] LABS: Prothrombin Time 10.6 sec (9.8-11.6)
--- NOTE | 2018-03-12 18:07 | P.PNNP ---
Subjective Interval history: no acute complaints, transferred to [facility] for bronchoscopy Physical Exam Vital signs: Vital Signs 03/11/18 20:52 03/11/18 22:25 03/12/18 00:00 Temperature 98.7 F 98.1 F Pulse Rate 81 70 Respiratory Rate 20 16 Blood Pressure 142/84 H 149/87 H Pulse Oximetry 92 L 93 L 93 L 03/12/18 07:55 03/12/18 11:48 03/12/18 16:00 Temperature 99.0 F 98.5 F 98.1 F Pulse Rate 79 73 73 Respiratory Rate 18 18 18 Blood Pressure 159/85 H 162/86 H 146/87 H Pulse Oximetry 93 L 93 L 94 L Intake & Output 03/11/18 03/12/18 03/12/18 18:59 06:59 18:59 Intake Total 740 / 740 100 / 100 1035 / 1035 Balance 740 / 740 100 / 100 1035 / 1035 Intake: IV 300 / 300 100 / 100 75 / 75 Maxipime Inj 1,000 MG In NS Inj 100 / 100 25 / 25 100 ML @ 200 mls/hr IV.SIG Q24H OLVIN Rx#:[id number] Doxy 100 Inj 100 MG In NS Inj 200 / 200 100 / 100 100 ML @ 100 mls/hr IV.SIG Q12H OLVIN Rx#:[id number] Diflucan 100 mg Premix Bag 50 50 / 50 ML @ 100 mls/hr IV.SIG Q24H OLVIN Rx#:[id number] Oral 440 / 440 960 / 960 Other: # Voids 3 4 # Bowel Movements 1 0 - Constitutional no acute distress - Routine HEENT Exam Head: Present: normocephalic Eye: Present: EOMI ENT: Present: mucous membranes moist - Routine Neck Exam Present: supple - Routine Respiratory Exam Present: diminished air movement - Routine Cardiovascular Exam Present: RRR - Routine Abdominal Exam Present: soft - Routine Skin Exam Present: intact - Routine Neurological Exam Present: alert, oriented X3 - Detailed Neurological Exam: Coma Scale Eye Opening: Spontaneous - Routine Psychiatric Exam Present: normal affect Assessment and Plan - Assessment (1) S/P kidney transplant Code(s): Z94.0 - Kidney transplant status Status: Chronic Plan: Creatinine 3.3- > 3.2, at baseline for patient Living unrelated transplant from 2010. Continue immunosuppressive medications. She is maintained on Myfortic, Prednisone, Nulogix (once monthly infusion, received in past week). The doses here were changed to usual home doses. Monitor renal function and urine output. Avoid nephrotoxic agents. PO fluids encouraged. Off IVF. (2) Chronic kidney disease, stage 4 (severe) Code(s): N18.4 - Chronic kidney disease, stage 4 (severe) Status: Acute Plan: Renal function has improved, most likely to baseline. She has stage IV to V CKD. She was leaning towards PD when dialysis is necessary. Still no current need for dialysis. Avoid nephrotoxic agents. She is making urine. (3) Pneumonia Code(s): J18.9 - Pneumonia, unspecified organism Status: Acute Qualifiers: Pneumonia type: due to unspecified organism Laterality: bilateral Lung location: lower lobe of lung Qualified Code(s): J18.1 - Lobar pneumonia, unspecified organism Plan: Planned bronchoscopy Tuesday Antibiotics include Cefepime and Zithromax. Monitor clinically. Incentive spirometry encouraged. (4) Hyperosmolality and hypernatremia Code(s): E87.0 - Hyperosmolality and hypernatremia Status: Acute Plan: Corrected. Was most likely due to insensible water losses. Follow BMP. PO fluids encouraged.
[2018-03-13] MEDS: Heparin - SQ 10,000 UNITS/ML Vial SQ SCH ×3 (03:05→18:26)
[2018-03-13 06:51] LABS: Hematocrit 26.7 % (35.0-46.0); Hemoglobin 8.4 gm/dL (11.6-15.3); Mean Corpuscular HGB Conc 31.6 % (32.0-36.0); Mean Corpuscular Hemoglobin 29.8 pg (27.0-34.0); Mean Corpuscular Volume 94.1 fL (80.0-100.0); Mean Platelet Volume 8.9 fL (7.0-11.0); Platelet Count 375 th/mm3 (150-450); Red Blood Count 2.84 mil/mm3 (4.00-5.30); Red Cell Distribution Width 13.7 % (11.6-17.2); White Blood Count 16.9 th/mm3 (4.0-11.0)
[2018-03-13 07:06] LABS: Carbon Dioxide 16.3 meq/L (21.0-32.0); Potassium 3.6 meq/L (3.5-5.1)
[2018-03-13] MEDS ORDERED: Chlorhexidine Gluconate 2% 1 Pack (2 Cloths) TOPICAL SCH (08:00)
[2018-03-13] MEDS ORDERED: Sodium Chlor 0.9% Inj 500 ML IV.SIG SCH (08:00)
--- NOTE | 2018-03-13 08:27 | P.PNNP ---
Subjective Interval history: She has been transferred to [facility] for bronchoscopy. Leukocytosis persists. On Cefepime and Zithromax. Physical Exam Vital signs: Vital Signs 03/12/18 11:48 03/12/18 16:00 03/12/18 18:00 Temperature 98.5 F 98.1 F Pulse Rate 73 73 66 Respiratory Rate 18 18 18 Blood Pressure 162/86 H 146/87 H Pulse Oximetry 93 L 94 L 100 03/12/18 20:00 03/13/18 00:00 03/13/18 04:00 Temperature 98.1 F 99 F 99.2 F Pulse Rate 77 77 75 Respiratory Rate 18 20 20 Blood Pressure 158/90 H 165/96 H 166/94 H Pulse Oximetry 95 91 L 90 L Intake & Output 03/12/18 03/13/18 03/13/18 18:59 06:59 18:59 Intake Total 1035 / 1035 100 / 100 Output Total 400 / 400 Balance 1035 / 1035 -300 / -300 Weight 47.4 kg Intake: IV 75 / 75 100 / 100 Maxipime Inj 1,000 MG In NS Inj 25 / 25 100 ML @ 200 mls/hr IV.SIG Q24H OLVIN Rx#:[id number] Doxy 100 Inj 100 MG In NS Inj 100 / 100 100 ML @ 100 mls/hr IV.SIG Q12H OLVIN Rx#:[id number] Diflucan 100 mg Premix Bag 50 50 / 50 ML @ 100 mls/hr IV.SIG Q24H OLVIN Rx#:[id number] Oral 960 / 960 Output: Urine 400 / 400 Other: # Voids 4 Date of Last Bowel Movement 03/09/18 03/12/18 # Bowel Movements 0 Weight On Admission 46.5 kg - Constitutional no acute distress - Routine HEENT Exam Head: Present: normocephalic ENT: Present: mucous membranes moist - Routine Neck Exam Present: supple, full ROM. Absent: JVD, carotid bruit, lymphadenopathy, thyromegaly - Routine Respiratory Exam Present: wheezes, crackles - Routine Cardiovascular Exam Present: RRR, S1, S2 - Routine Abdominal Exam Present: soft, normoactive bowel sounds - Routine Extremities Exam Absent: edema - Routine Skin Exam Present: intact - Routine Neurological Exam Present: alert, oriented X3 Assessment and Plan - Assessment (1) S/P kidney transplant Code(s): Z94.0 - Kidney transplant status Status: Chronic Plan: Creatinine 3.3- > 3.2, at baseline for patient Living unrelated transplant from 2010. Continue immunosuppressive medications. She is maintained on Myfortic, Prednisone, Nulogix (once monthly infusion, received in past week). The doses here were changed to usual home doses. Monitor renal function and urine output. Avoid nephrotoxic agents. PO fluids encouraged. Off IVF. (2) Chronic kidney disease, stage 4 (severe) Code(s): N18.4 - Chronic kidney disease, stage 4 (severe) Status: Acute Plan: Renal function has improved, most likely to baseline. She has stage IV to V CKD. She was leaning towards PD when dialysis is necessary. Still no current need for dialysis. Avoid nephrotoxic agents. She is making urine. (3) Pneumonia Code(s): J18.9 - Pneumonia, unspecified organism Status: Acute Qualifiers: Pneumonia type: due to unspecified organism Laterality: bilateral Lung location: lower lobe of lung Qualified Code(s): J18.1 - Lobar pneumonia, unspecified organism Plan: Planned bronchoscopy Tuesday Antibiotics include Cefepime and Zithromax. Monitor clinically. Incentive spirometry encouraged. (4) Hyperosmolality and hypernatremia Code(s): E87.0 - Hyperosmolality and hypernatremia Status: Acute Plan: Corrected. Was most likely due to insensible water losses. Follow BMP. PO fluids encouraged.
[2018-03-13] MEDS: predniSONE 5 MG Tablet PO SCH (09:05)
[2018-03-13] MEDS: amLODIPine 5 MG Tablet PO SCH (09:06)
[2018-03-13] MEDS: Metoprolol Tartrate 100 MG Tablet PO SCH ×2 (09:06→21:50)
[2018-03-13] MEDS ORDERED: Sodium Chloride 0.45 % Inj 1,000 ML IV.CONT SCH (09:30)
--- NOTE | 2018-03-13 09:48 | ECG ---
Date Performed: 03/12/2018 Time Performed: 12:00:45 PTAGE: 47 years EKG: Sinus rhythm NORMAL ECG Since the PREVIOUS TRACING , no significant change noted PREVIOUS TRACIN03/07/2018 17.36 DOCTOR: Christo Quick Interpretating Date/Time 03/13/2018 09:45:57
--- NOTE | 2018-03-13 10:09 | P.PN ---
Subjective Interval history: persistent cough but not bringing up any sputum patient easily gets short of breath with minimal exerttion o no abdominal pain, nausea or vomtiing, good BM, no urinary complaints Physical Exam Vital signs: Vital Signs 03/12/18 11:48 03/12/18 16:00 03/12/18 18:00 Temperature 98.5 F 98.1 F Pulse Rate 73 73 66 Respiratory Rate 18 18 18 Blood Pressure 162/86 H 146/87 H Pulse Oximetry 93 L 94 L 100 03/12/18 20:00 03/13/18 00:00 03/13/18 04:00 Temperature 98.1 F 99 F 99.2 F Pulse Rate 77 77 75 Respiratory Rate 18 20 20 Blood Pressure 158/90 H 165/96 H 166/94 H Pulse Oximetry 95 91 L 90 L 03/13/18 08:00 03/13/18 08:48 Temperature 98.9 F Pulse Rate 82 Respiratory Rate 17 Blood Pressure 163/85 H Pulse Oximetry 93 L 93 L Intake & Output 03/12/18 03/13/18 03/13/18 18:59 06:59 18:59 Intake Total 1035 / 1035 100 / 100 Output Total 400 / 400 Balance 1035 / 1035 -300 / -300 Weight 47.4 kg Intake: IV 75 / 75 100 / 100 Maxipime Inj 1,000 MG In NS Inj 25 / 25 100 ML @ 200 mls/hr IV.SIG Q24H [facility]LV[facility] Rx#:[id number] Doxy 100 Inj 100 MG In NS Inj 100 / 100 100 ML @ 100 mls/hr IV.SIG Q12H OLVIN Rx#:[id number] Diflucan 100 mg Premix Bag 50 50 / 50 ML @ 100 mls/hr IV.SIG Q24H OLVIN Rx#:[id number] Oral 960 / 960 Output: Urine 400 / 400 Other: # Voids 4 Date of Last Bowel Movement 03/09/18 03/12/18 # Bowel Movements 0 Weight On Admission 46.5 kg Narrative: on 02 NC awake and alert, slightly tachypneic moist oral mucosa anicteric no nuchal rigidity minimal dry rales bases more on the left regular rhythm abdomen soft, nontender extremities no edema, no calf swelling neuro exam- unremarkable - Constitutional Comments: slightyly tachypneic Results - Labs CBC & Chem 7: 03/13/18 06:00 03/13/18 06:00 Laboratory Results - last 24 hr 03/12/18 03/13/18 03/13/18 11:55 06:00 06:00 WBC 16.9 H RBC 2.84 L Hgb 8.4 L Hct 26.7 L MCV 94.1 MCH 29.8 MCHC 31.6 L RDW 13.7 Plt Count 375 MPV 8.9 PT 10.6 INR 1.0 APTT 25.0 Sodium 146 H Potassium 3.6 Chloride 115 H Carbon Dioxide 16.3 L Anion Gap 15 BUN 36 H Creatinine 3.24 H Estimated GFR 15 L Random Glucose 82 Calcium 10.0 Microbiology 03/07/18 16:25 Blood - Peripheral Aerobic Blood Culture - Final No growth in 5 days 03/07/18 16:25 Blood - Peripheral Anaerobic Blood Culture - Final No growth in 5 days 03/07/18 16:30 Blood - Peripheral Aerobic Blood Culture - Final No growth in 5 days 03/07/18 16:30 Blood - Peripheral Anaerobic Blood Culture - Final No growth in 5 days Assessment and Plan - Assessment (1) Pneumonia Code(s): J18.9 - Pneumonia, unspecified organism Status: Acute Plan: continue Cefepime, Doxycycline and Fluconazole-blood cultures negative- TB Quantiferon test pending. keep on oxygen to keep O2 sat > 90%. continue neb treatment. ID f/u appreciated. pulmonary consulted; plan for bronchoscopy tomorrow. (2) Acute hypoxemic respiratory failure Code(s): J96.01 - Acute respiratory failure with hypoxia Status: Acute Plan: keep on oxygen to keep O2 sat> 90%- continue neb treatment; treat pneumonia as noted above. bronchoscopy tomorrow. (3) S/P kidney transplant Code(s): Z94.0 - Kidney transplant status Status: Chronic Plan: renal function seems at her baseline- will continue with immunosuppression therapy- monitor renal function.nephrology following. (4) Hypertension Code(s): I10 - Essential (primary) hypertension Status: Chronic Plan: continue home meds and continue to monitor- will adjust the regimen as needed. (5) Hypernatremia Code(s): E87.0 - Hyperosmolality and hypernatremia Status: Acute Plan: will monitor.nephrology following. - Plan 47 years old female (1) Pneumonia Code(s): J18.9 - Pneumonia, unspecified organism Status: Acute Plan: continue Cefepime, Doxycycline and Fluconazole-blood cultures negative- TB Quantiferon test pending. keep on oxygen to keep O2 sat > 90%. continue neb treatment. ID f/u appreciated. pulmonary consulted; plan for bronchoscopy today (2) Acute hypoxemic respiratory failure Code(s): J96.01 - Acute respiratory failure with hypoxia Status: Acute Plan: keep on oxygen to keep O2 sat> 90%- continue neb treatment; treat pneumonia as noted above. bronchoscopy today (3) S/P kidney transplant Code(s): Z94.0 - Kidney transplant status Status: Chronic Plan: renal function seems at her baseline- will continue with immunosuppression therapy- monitor renal function. nephrology following. (4) Hypertension Code(s): I10 - Essential (primary) hypertension Status: Chronic Plan: continue home meds and continue to monitor- will adjust the regimen as needed. (5) Hypernatremia Code(s): E87.0 - Hyperosmolality and hypernatremia Status: Acute Plan: will monitor.nephrology following. - (1) Pneumonia Qualifiers: Pneumonia type: due to unspecified organism Laterality: bilateral Lung location: lower lobe of lung Qualified Code(s): J18.1 - Lobar pneumonia, unspecified organism (4) Hypertension Qualifiers: Hypertension type: essential hypertension Qualified Code(s): I10 - Essential (primary) hypertension
[2018-03-13] MEDS ORDERED: Sugammadex Inj 200 MG/2 ML Vial IV.PUSH ONE (12:50)
[2018-03-13] MEDS ORDERED: fentaNYL Citrate Inj 100 MCG/2 ML Ampul ONE (12:50)
--- NOTE | 2018-03-13 13:57 | MR ---
cc: Kimberlee Turcios MD DATE: 03/13/2018 PROCEDURE PERFORMED: Bronchoscopy. INDICATIONS FOR PROCEDURE: Pneumonia and renal transplant, immunocompromised. PROCEDURE: After informed consent was obtained, the patient underwent diagnostic bronchoscopy with LMA anesthesia. Examination of the larynx was unremarkable. Examination of the trachea down to the level of the mainstem bronchi again unremarkable other than some scattered secretions. Examination of the left mainstem bronchus, left upper lobe and lower lobes again revealed some scattered slightly purulent secretions. No other endobronchial pathology. Examination of the right mainstem bronchus, right upper, middle, and lower lobes revealed no endobronchial pathology other than some scattered secretions slightly purulent. No blood. Right upper and lower lobes were lavaged extensively and specimens are submitted for routine cultures including AFB and fungus, as well as Pneumocystis and viral cultures were also sent. She tolerated the procedure well, without apparent complication. Being prepared for transfer to recovery. Kimberlee Turcios MD RSW/TL , 01:48 PM , 01:55 PM
[2018-03-14] MEDS: Heparin - SQ 10,000 UNITS/ML Vial SQ SCH ×3 (06:34→17:50)
[2018-03-14] MEDS: predniSONE 5 MG Tablet PO SCH (09:02)
[2018-03-14] MEDS: amLODIPine 5 MG Tablet PO SCH (09:02)
[2018-03-14] MEDS: Metoprolol Tartrate 100 MG Tablet PO SCH ×2 (09:03→21:36)
--- NOTE | 2018-03-14 09:03 | P.PNNP ---
Subjective Interval history: On airborne isolation as precaution. S/P bronch yesterday, tolerated well. Pending labs from today. She is on 4L O2 via NC. Still dyspneic, hypoxic. <Ramandeep Webster - Last Filed: 03/14/18 08:57> Physical Exam Vital signs: Vital Signs 03/13/18 09:23 03/13/18 11:30 03/13/18 12:00 Temperature Pulse Rate 83 72 76 Respiratory Rate 20 Blood Pressure Pulse Oximetry 03/13/18 14:30 03/13/18 14:45 03/13/18 15:08 Temperature 98.3 F Pulse Rate 76 75 74 Respiratory Rate 18 20 18 Blood Pressure 123/78 120/76 126/79 Pulse Oximetry 98 98 95 03/13/18 15:20 03/13/18 17:52 03/13/18 19:39 Temperature 97.5 F L Pulse Rate 74 73 78 Respiratory Rate 20 16 Blood Pressure 142/84 H Pulse Oximetry 96 03/13/18 20:00 03/13/18 23:44 03/14/18 04:00 Temperature 98.9 F 100.6 F H Pulse Rate 78 79 67 Respiratory Rate 20 22 Blood Pressure 144/88 H 158/93 H Pulse Oximetry 92 L 03/14/18 08:00 Temperature 100.1 F H Pulse Rate 79 Respiratory Rate 18 Blood Pressure 148/87 H Pulse Oximetry 94 L Intake & Output 03/13/18 03/14/18 03/14/18 18:59 06:59 18:59 Intake Total 175 / 175 880 / 880 Output Total 850 / 850 Balance -675 / -675 880 / 880 Intake: IV 175 / 175 100 / 100 Maxipime Inj 1,000 MG In NS Inj 75 / 75 100 ML @ 200 mls/hr IV.SIG Q24H [facility]LV[facility] Rx#:[id number] Doxy 100 Inj 100 MG In NS Inj 100 / 100 100 ML @ 100 mls/hr IV.SIG Q12H [facility]LVIN Rx#:[id number] Diflucan 100 mg Premix Bag 50 100 / 100 ML @ 100 mls/hr IV.SIG Q24H OLVIN Rx#:[id number] Oral 0 / 0 780 / 780 Output: Urine 850 / 850 Other: Date of Last Bowel Movement 07/09/18 07/09/18 # Bowel Movements 0 1 - Constitutional no acute distress Comments: appears acutely ill - Routine HEENT Exam Head: Present: normocephalic Eye: Present: EOMI ENT: Present: mucous membranes moist - Routine Neck Exam Present: supple, full ROM - Routine Respiratory Exam Present: crackles. Absent: accessory muscle use Comments: LLL crackles, no wheezing. - Routine Cardiovascular Exam Present: RRR, S1, S2 - Routine Abdominal Exam Present: soft, normoactive bowel sounds - Routine Skin Exam Present: intact, warm - Routine Neurological Exam Present: alert, oriented X3 - Detailed Neurological Exam: Coma Scale Eye Opening: Spontaneous Verbal Response: Oriented Motor Response: Obey commands Mya Coma Scale Total: 15 - Routine Psychiatric Exam Present: normal affect, normal thought process <Ramandeep Webster - Last Filed: 03/14/18 08:57> Vital signs: Vital Signs 03/13/18 11:30 03/13/18 12:00 03/13/18 14:30 Temperature Pulse Rate 72 76 76 Respiratory Rate 20 18 Blood Pressure 123/78 Pulse Oximetry 98 03/13/18 14:45 03/13/18 15:08 03/13/18 15:20 Temperature 98.3 F 97.5 F L Pulse Rate 75 74 74 Respiratory Rate 20 18 20 Blood Pressure 120/76 126/79 142/84 H Pulse Oximetry 98 95 96 03/13/18 17:52 03/13/18 19:39 03/13/18 20:00 Temperature 98.9 F Pulse Rate 73 78 78 Respiratory Rate 16 20 Blood Pressure 144/88 H Pulse Oximetry 92 L 03/13/18 23:44 03/14/18 04:00 03/14/18 08:00 Temperature 100.6 F H 100.1 F H Pulse Rate 79 67 79 Respiratory Rate 22 18 Blood Pressure 158/93 H 148/87 H Pulse Oximetry 94 L Intake & Output 03/13/18 03/14/18 03/14/18 18:59 06:59 18:59 Intake Total 175 / 175 880 / 880 Output Total 850 / 850 800 / 800 Balance -675 / -675 880 / 880 -800 / -800 Intake: IV 175 / 175 100 / 100 Maxipime Inj 1,000 MG In NS Inj 75 / 75 100 ML @ 200 mls/hr IV.SIG Q24H OLVIN Rx#:[id number] Doxy 100 Inj 100 MG In NS Inj 100 / 100 100 ML @ 100 mls/hr IV.SIG Q12H OLVIN Rx#:[id number] Diflucan 100 mg Premix Bag 50 100 / 100 ML @ 100 mls/hr IV.SIG Q24H OLVIN Rx#:[id number] Oral 0 / 0 780 / 780 Output: Urine 850 / 850 800 / 800 Other: Date of Last Bowel Movement 03/13/18 03/13/18 # Bowel Movements 0 1 1 <Fredrick Metzger - Last Filed: 03/14/18 10:06> Assessment and Plan - Assessment (1) S/P kidney transplant Code(s): Z94.0 - Kidney transplant status Status: Chronic Plan: Renal function has been at baseline. Hx of living unrelated transplant from 2010. Continue immunosuppressive medications. She is maintained on Myfortic, Prednisone, Nulogix (once monthly infusion, received in past week). Monitor renal function and urine output. Avoid nephrotoxic agents. PO fluids encouraged. Off IVF. (2) Chronic kidney disease, stage 4 (severe) Code(s): N18.4 - Chronic kidney disease, stage 4 (severe) Status: Acute Plan: Renal function has improved, most likely to baseline. She has underlying stage IV to V CKD. She was leaning towards PD when dialysis is necessary. Still no current need for dialysis. Avoid nephrotoxic agents. She is non oliguric. See above. (3) Pneumonia Code(s): J18.9 - Pneumonia, unspecified organism Status: Acute Qualifiers: Pneumonia type: due to unspecified organism Laterality: bilateral Lung location: lower lobe of lung Qualified Code(s): J18.1 - Lobar pneumonia, unspecified organism Plan: s/p broch 03/13. Pending results. She is on airborne precautions pending TB Quantiferon. Antibiotics include Cefepime, doxycycline, and Diflucan. ID and Pulmonary following. Monitor clinically.Taper oxygen if able. Incentive spirometry encouraged. (4) Hyperosmolality and hypernatremia Code(s): E87.0 - Hyperosmolality and hypernatremia Status: Acute Plan: Recurrent, most likely due to insensible water losses. Repeat BMP ordered. May need hypotonic fluids, PO encouraged. <Ramandeep Webster - Last Filed: 03/14/18 08:57> - Assessment (1) S/P kidney transplant Code(s): Z94.0 - Kidney transplant status Status: Chronic (2) Chronic kidney disease, stage 4 (severe) Code(s): N18.4 - Chronic kidney disease, stage 4 (severe) Status: Acute (3) Pneumonia Code(s): J18.9 - Pneumonia, unspecified organism Status: Acute Qualifiers: Pneumonia type: due to unspecified organism Laterality: bilateral Lung location: lower lobe of lung Qualified Code(s): J18.1 - Lobar pneumonia, unspecified organism (4) Hyperosmolality and hypernatremia Code(s): E87.0 - Hyperosmolality and hypernatremia Status: Acute - Attending Attestation patient was seen and examined. Agree with above assessment and plan. <Fredrick Metzger - Last Filed: 03/14/18 10:06>
--- NOTE | 2018-03-14 12:23 | P.PN ---
Subjective Interval history: awake and alert minmal cough- minimal sputum tolerated bronchoscopy- short fo breath with minimal exertion Physical Exam Vital signs: Vital Signs 03/13/18 14:30 03/13/18 14:45 03/13/18 15:08 Temperature 98.3 F Pulse Rate 76 75 74 Respiratory Rate 18 20 18 Blood Pressure 123/78 120/76 126/79 Pulse Oximetry 98 98 95 03/13/18 15:20 03/13/18 17:52 03/13/18 19:39 Temperature 97.5 F L Pulse Rate 74 73 78 Respiratory Rate 20 16 Blood Pressure 142/84 H Pulse Oximetry 96 03/13/18 20:00 03/13/18 23:44 03/14/18 04:00 Temperature 98.9 F 100.6 F H Pulse Rate 78 79 67 Respiratory Rate 20 22 Blood Pressure 144/88 H 158/93 H Pulse Oximetry 92 L 03/14/18 07:52 03/14/18 08:00 03/14/18 10:47 Temperature 100.1 F H Pulse Rate 81 79 Respiratory Rate 18 Blood Pressure 148/87 H Pulse Oximetry 94 L 94 L Intake & Output 03/13/18 03/14/18 03/14/18 18:59 06:59 18:59 Intake Total 175 / 175 880 / 880 200 / 200 Output Total 850 / 850 800 / 800 Balance -675 / -675 880 / 880 -600 / -600 Intake: IV 175 / 175 100 / 100 200 / 200 Maxipime Inj 1,000 MG In NS Inj 75 / 75 200 / 200 100 ML @ 200 mls/hr IV.SIG Q24H [facility] Rx#:[id number] Doxy 100 Inj 100 MG In NS Inj 100 / 100 100 ML @ 100 mls/hr IV.SIG Q12H [facility] Rx#:[id number] Diflucan 100 mg Premix Bag 50 100 / 100 ML @ 100 mls/hr IV.SIG Q24H [facility] Rx#:[id number] Oral 0 / 0 780 / 780 Output: Urine 850 / 850 800 / 800 Other: Date of Last Bowel Movement 03/13/18 03/13/18 # Bowel Movements 0 1 1 Narrative: on 02 NC awake and alert, dyspneic with minimal exertion moist oral mucosa anicteric no nuchal rigidity minimal dry rales bases bases regular rhythm abdomen soft, nontender extremities no edema, no calf swelling neuro exam- unremarkable Results - Labs CBC & Chem 7: 03/13/18 06:00 03/13/18 06:00 Microbiology 03/13/18 13:36 Bronchial - Right Gram Stain - Final 03/13/18 13:36 Bronchial - Right Bronchial Culture - Preliminary Immature growth - reincubate 03/13/18 13:36 Bronchial Washings - Right Fungal Smear - Final No fungal elements seen 03/13/18 16:10 Urine - Clean Catch Urine Streptococcus pneumoniae Antigen ( M - Final Presumptive negative for streptococcus pneumoniae antigen, suggesting no current or recent infection. Infection due to Streptococcus pneumoniae cannot be ruled out since the antigen present in the sample may be below the detection limit of the test. 03/13/18 16:10 Urine - Clean Catch Urine Legionella Antigen - Final Presumptive negative for Legionella pneumophila serogroup 1 antigen in urine, suggesting no recent or recurrent infection. Infection due to Legionella cannot be ruled out since other serogroups and species may cause disease, antigen may not be present in urine in early infection, and the level of antigen present in the urine may be below the detection limit of the test. Assessment and Plan - Assessment (1) Pneumonia Code(s): J18.9 - Pneumonia, unspecified organism Status: Acute Plan: continue Cefepime, Doxycycline and Fluconazole-blood cultures negative- TB Quantiferon test pending. keep on oxygen to keep O2 sat > 90%. continue neb treatment. ID f/u appreciated. pulmonary consulted; plan for bronchoscopy tomorrow. (2) Acute hypoxemic respiratory failure Code(s): J96.01 - Acute respiratory failure with hypoxia Status: Acute Plan: keep on oxygen to keep O2 sat> 90%- continue neb treatment; treat pneumonia as noted above. bronchoscopy tomorrow. (3) S/P kidney transplant Code(s): Z94.0 - Kidney transplant status Status: Chronic Plan: renal function seems at her baseline- will continue with immunosuppression therapy- monitor renal function.nephrology following. (4) Hypertension Code(s): I10 - Essential (primary) hypertension Status: Chronic Plan: continue home meds and continue to monitor- will adjust the regimen as needed. (5) Hypernatremia Code(s): E87.0 - Hyperosmolality and hypernatremia Status: Acute Plan: will monitor.nephrology following. - Plan 47 years old female (1) Pneumonia Code(s): J18.9 - Pneumonia, unspecified organism Status: Acute Plan: continue Cefepime, Doxycycline and Fluconazole-blood cultures negative- TB Quantiferon test pending. keep on oxygen to keep O2 sat > 90%. continue neb treatment. ID f/u appreciated. S/P bronchoscopy 03/13- will ff sultures and sensitivity (2) Acute hypoxemic respiratory failure Code(s): J96.01 - Acute respiratory failure with hypoxia Status: Acute Plan: keep on oxygen to keep O2 sat> 90%- continue neb treatment; treat pneumonia as noted above. (3) S/P kidney transplant Code(s): Z94.0 - Kidney transplant status Status: Chronic Plan: renal function seems at her baseline- will continue with immunosuppression therapy- monitor renal function. nephrology following. (4) Hypertension Code(s): I10 - Essential (primary) hypertension Status: Chronic Plan: continue home meds and continue to monitor- will adjust the regimen as needed. (5) Hypernatremia Code(s): E87.0 - Hyperosmolality and hypernatremia Status: Acute Plan: will monitor.nephrology following. - (1) Pneumonia Qualifiers: Pneumonia type: due to unspecified organism Laterality: bilateral Lung location: lower lobe of lung Qualified Code(s): J18.1 - Lobar pneumonia, unspecified organism (4) Hypertension Qualifiers: Hypertension type: essential hypertension Qualified Code(s): I10 - Essential (primary) hypertension
--- NOTE | 2018-03-14 12:44 | P.PNID ---
Subjective Remarks: Patient has shortness of breath. Reports that she gets short of breath just walking back to bed from the bathroom. Dry cough No fever Underwent bronchoscopy yesterday. Bronchoscopy culture pending. 47/F with h/o kidney transplant in 2010- now with failing transplant came to the hospital because of a two week h/o progressively worsening dyspnea and cough. Cough is non productive. ? low grade fevers at home. Patient did have a inconclusive TB quantiferon test x 2 and was to repeat this month. No recent travel . No pets at home. No sick contacts. Antibiotics: Doxycycline Hyclate (Vibramycin) 100 mg PO BID OLV[facility] Last Admin: 03/14/18 11:01 Dose: 100 mg Cefepime HCl 1,000 mg/ Sodium (Chloride) 100 mls @ 200 mls/hr IV.SIG Q24H [facility] Last Infusion: 03/14/18 11:32 Dose: Infused Fluconazole (Diflucan 100 Mg Premix Bag) 50 mls @ 100 mls/hr IV.SIG Q24H OLV[facility] Last Infusion: 03/13/18 22:20 Dose: Infused Lines: Peripheral IV intact Past Medical History: H/o kidney transplant Allergies/Adverse Reactions: Allergies No Known Allergies Allergy (Uncoded 03/10/18 08:58) NONE Objective Vital Signs 03/13/18 14:30 03/13/18 14:45 03/13/18 15:08 Temperature 98.3 F Pulse Rate 76 75 74 Respiratory Rate 18 20 18 Blood Pressure 123/78 120/76 126/79 Pulse Oximetry 98 98 95 03/13/18 15:20 03/13/18 17:52 03/13/18 19:39 Temperature 97.5 F L Pulse Rate 74 73 78 Respiratory Rate 20 16 Blood Pressure 142/84 H Pulse Oximetry 96 03/13/18 20:00 03/13/18 23:44 03/14/18 04:00 Temperature 98.9 F 100.6 F H Pulse Rate 78 79 67 Respiratory Rate 20 22 Blood Pressure 144/88 H 158/93 H Pulse Oximetry 92 L 03/14/18 07:52 03/14/18 08:00 03/14/18 10:47 Temperature 100.1 F H Pulse Rate 81 79 Respiratory Rate 18 Blood Pressure 148/87 H Pulse Oximetry 94 L 94 L 03/14/18 12:00 Temperature 98.0 F Pulse Rate 72 Respiratory Rate 18 Blood Pressure 153/96 H Pulse Oximetry 92 L Intake & Output 03/13/18 03/14/18 03/14/18 18:59 06:59 18:59 Intake Total 175 / 175 880 / 880 200 / 200 Output Total 850 / 850 800 / 800 Balance -675 / -675 880 / 880 -600 / -600 Intake: IV 175 / 175 100 / 100 200 / 200 Maxipime Inj 1,000 MG In NS Inj 75 / 75 200 / 200 100 ML @ 200 mls/hr IV.SIG Q24H [facility] Rx#:[id number] Doxy 100 Inj 100 MG In NS Inj 100 / 100 100 ML @ 100 mls/hr IV.SIG Q12H [facility] Rx#:[id number] Diflucan 100 mg Premix Bag 50 100 / 100 ML @ 100 mls/hr IV.SIG Q24H [facility] Rx#:[id number] Oral 0 / 0 780 / 780 Output: Urine 850 / 850 800 / 800 Other: Date of Last Bowel Movement 03/13/18 03/13/18 # Bowel Movements 0 1 1 03/13/18 13:36 Bronchial - Right Gram Stain - Final 03/13/18 13:36 Bronchial - Right Bronchial Culture - Preliminary Immature growth - reincubate 03/13/18 13:36 Bronchial Washings - Right Fungal Smear - Final No fungal elements seen 03/13/18 13:36 Bronchial Washings - Right Fungal Culture - Pending 03/13/18 16:10 Urine - Clean Catch Urine Streptococcus pneumoniae Antigen ( M - Final Presumptive negative for streptococcus pneumoniae antigen, suggesting no current or recent infection. Infection due to Streptococcus pneumoniae cannot be ruled out since the antigen present in the sample may be below the detection limit of the test. 03/13/18 16:10 Urine - Clean Catch Urine Legionella Antigen - Final Presumptive negative for Legionella pneumophila serogroup 1 antigen in urine, suggesting no recent or recurrent infection. Infection due to Legionella cannot be ruled out since other serogroups and species may cause disease, antigen may not be present in urine in early infection, and the level of antigen present in the urine may be below the detection limit of the test. 03/13/18 13:36 Bronchial Brushings - Right Acid Fast Bacilli Smear - Pending 03/07/18 16:25 Blood - Peripheral Aerobic Blood Culture - Final No growth in 5 days 03/07/18 16:25 Blood - Peripheral Anaerobic Blood Culture - Final No growth in 5 days 03/07/18 16:30 Blood - Peripheral Aerobic Blood Culture - Final No growth in 5 days 03/07/18 16:30 Blood - Peripheral Anaerobic Blood Culture - Final No growth in 5 days Lab - Hematology Results 03/13/18 06:00 WBC 16.9 H RBC 2.84 L Hgb 8.4 L Hct 26.7 L MCV 94.1 MCH 29.8 MCHC 31.6 L RDW 13.7 Plt Count 375 MPV 8.9 Lab - Chemistry Results 03/13/18 06:00 Sodium 146 H Potassium 3.6 Chloride 115 H Carbon Dioxide 16.3 L Anion Gap 15 BUN 36 H Creatinine 3.24 H Estimated GFR 15 L Random Glucose 82 Calcium 10.0 Imaging: ITS Impressions Chest CT 03/07/18 17:26 CONCLUSION: 1. Bilateral pulmonary infiltrates likely infectious in etiology. Noncardiogenic pulmonary edema could have a similar appearance . Chest X-Ray 03/11/18 00:00 CONCLUSION: Bibasilar patchy infiltrates. Treatment and follow-up to resolution recommended. Physical Exam: GENERAL: Alert and oriented, no acute distress. HEENT: Pupils reactive to light. Extraocular movements intact. No icterus. NECK: Supple without adenopathy. No swelling. LUNGS: Decreased breath sounds with slight rhonchi at the bases. HEART: Regular S1 and S2. No murmurs rubs or gallops. ABDOMEN: Bowel sounds present, soft, nontender. EXTREMITIES: No clubbing cyanosis or edema. SKIN: No rash. NEUROLOGIC: Nonfocal. PSYCH: Calm and cooperative. Assessment and Plan (1) Pneumonia Status: Acute Code(s): J18.9 - Pneumonia, unspecified organism (2) S/P kidney transplant Status: Chronic Code(s): Z94.0 - Kidney transplant status (3) Chronic kidney disease, stage 4 (severe) Status: Acute Code(s): N18.4 - Chronic kidney disease, stage 4 (severe) - Plan 1. Monitor bronchoscopy culture 2. Follow sputum culture 3. Check TB Quantiferon test- past jh/o inconclusive test 4. Continue IV Cefepime 5. Continue Azithromycin 6. Continue Doxycycline. This medication will be changed to p.o. because patient is complaining of pain with infusion. (1) Pneumonia Qualifiers: Pneumonia type: due to unspecified organism Laterality: bilateral Lung location: lower lobe of lung Qualified Code(s): J18.1 - Lobar pneumonia, unspecified organism
[2018-03-14 12:57] LABS: Hematocrit 27.4 % (35.0-46.0); Hemoglobin 8.5 gm/dL (11.6-15.3); Mean Corpuscular HGB Conc 31.1 % (32.0-36.0); Mean Corpuscular Hemoglobin 29.4 pg (27.0-34.0); Mean Corpuscular Volume 94.8 fL (80.0-100.0); Mean Platelet Volume 9.2 fL (7.0-11.0); Platelet Count 331 th/mm3 (150-450); Red Blood Count 2.89 mil/mm3 (4.00-5.30); Red Cell Distribution Width 13.6 % (11.6-17.2); White Blood Count 15.7 th/mm3 (4.0-11.0)
[2018-03-14 13:27] LABS: Calcium 10.1 mg/dL (8.5-10.1); Carbon Dioxide 17.3 meq/L (21.0-32.0); Phosphorus 2.7 mg/dL (2.5-4.9); Potassium 4.1 meq/L (3.5-5.1)
[2018-03-14 20:11] LABS: TB1 Ag minus Nil Result 0 IU/mL
[2018-03-15] MEDS: Heparin - SQ 10,000 UNITS/ML Vial SQ SCH ×2 (04:00→10:03)
--- NOTE | 2018-03-15 08:36 | P.PNNP ---
Subjective Interval history: Overall she is stable. On 4 liters of oxygen by OR. Patient is comfortable, but has exertional dyspnea. Physical Exam Vital signs: Vital Signs 03/14/18 10:47 03/14/18 11:53 03/14/18 12:00 Temperature 98.0 F Pulse Rate 68 72 Respiratory Rate 18 Blood Pressure 153/96 H Pulse Oximetry 94 L 92 L 03/14/18 15:53 03/14/18 16:00 03/14/18 19:42 Temperature 97.9 F Pulse Rate 60 68 82 Respiratory Rate 17 Blood Pressure 147/94 H Pulse Oximetry 97 03/14/18 20:00 03/14/18 23:42 03/14/18 23:46 Temperature 97.8 F 97.9 F Pulse Rate 67 63 Respiratory Rate 18 16 Blood Pressure 173/92 H 130/60 Pulse Oximetry 100 99 03/15/18 04:00 Temperature 98.0 F Pulse Rate 62 Respiratory Rate 14 Blood Pressure 118/62 Pulse Oximetry 98 Intake & Output 03/14/18 03/15/18 03/15/18 18:59 06:59 18:59 Intake Total 950 / 950 870 / 870 Output Total 800 / 800 900 / 900 Balance 150 / 150 -30 / -30 Weight 48 kg Intake: IV 350 / 350 Maxipime Inj 1,000 MG In NS Inj 200 / 200 100 ML @ 200 mls/hr IV.SIG Q24H [facility] Rx#:[id number] Doxy 100 Inj 100 MG In NS Inj 100 / 100 100 ML @ 100 mls/hr IV.SIG Q12H [facility] Rx#:[id number] Diflucan 100 mg Premix Bag 50 50 / 50 ML @ 100 mls/hr IV.SIG Q24H [facility] Rx#:[id number] Oral 600 / 600 870 / 870 Output: Urine 800 / 800 900 / 900 Other: Date of Last Bowel Movement 03/14/18 03/14/18 # Bowel Movements 1 1 - Constitutional no acute distress - Routine HEENT Exam Head: Present: normocephalic Eye: Present: EOMI, PERRL ENT: Present: mucous membranes moist - Routine Neck Exam Present: supple, full ROM. Absent: JVD, carotid bruit - Routine Respiratory Exam Present: decreased breath sounds, rhonchi - Routine Cardiovascular Exam Present: RRR, S1, S2 - Routine Abdominal Exam Present: soft, normoactive bowel sounds - Routine Extremities Exam Present: full ROM. Absent: clubbing, edema - Routine Skin Exam Present: intact - Routine Neurological Exam Present: alert, oriented X3 Assessment and Plan - Assessment (1) S/P kidney transplant Code(s): Z94.0 - Kidney transplant status Status: Chronic Plan: Renal function has been at baseline. Hx of living unrelated transplant from 2010. Continue immunosuppressive medications. She is maintained on Myfortic, Prednisone, Nulogix (once monthly infusion, due in 2 weeks). Monitor renal function and urine output. Avoid nephrotoxic agents. PO fluids encouraged. Off IVF. (2) Chronic kidney disease, stage 4 (severe) Code(s): N18.4 - Chronic kidney disease, stage 4 (severe) Status: Acute Plan: Renal function is stable. She has stage IV to V CKD, at baseline at this point. No need for dialysis. Avoid nephrotoxic agents. (3) Pneumonia Code(s): J18.9 - Pneumonia, unspecified organism Status: Acute Qualifiers: Pneumonia type: due to unspecified organism Laterality: bilateral Lung location: lower lobe of lung Qualified Code(s): J18.1 - Lobar pneumonia, unspecified organism Plan: s/p broch 03/13. Pending results. She is on airborne precautions pending TB Quantiferon. Antibiotics include Cefepime, doxycycline (switched to PO) and Zithromax. ID following. s/p bronchoscopy. (4) Hyperosmolality and hypernatremia Code(s): E87.0 - Hyperosmolality and hypernatremia Status: Acute Plan: Improved.
--- NOTE | 2018-03-15 09:50 | P.PN ---
Subjective Interval history: patient feels better- appears less tachypneic cough minimal she is trying to increase activity- around the room- still feels shortness of breath- but "better" Physical Exam Vital signs: Vital Signs 03/14/18 10:47 03/14/18 11:53 03/14/18 12:00 Temperature 98.0 F Pulse Rate 68 72 Respiratory Rate 18 Blood Pressure 153/96 H Pulse Oximetry 94 L 92 L 03/14/18 15:53 03/14/18 16:00 03/14/18 19:42 Temperature 97.9 F Pulse Rate 60 68 82 Respiratory Rate 17 Blood Pressure 147/94 H Pulse Oximetry 97 03/14/18 20:00 03/14/18 23:42 03/14/18 23:46 Temperature 97.8 F 97.9 F Pulse Rate 67 63 Respiratory Rate 18 16 Blood Pressure 173/92 H 130/60 Pulse Oximetry 100 99 03/15/18 04:00 Temperature 98.0 F Pulse Rate 62 Respiratory Rate 14 Blood Pressure 118/62 Pulse Oximetry 98 Intake & Output 03/14/18 03/15/18 03/15/18 18:59 06:59 18:59 Intake Total 950 / 950 870 / 870 Output Total 800 / 800 900 / 900 Balance 150 / 150 -30 / -30 Weight 48 kg Intake: IV 350 / 350 Maxipime Inj 1,000 MG In NS Inj 200 / 200 100 ML @ 200 mls/hr IV.SIG Q24H [facility] Rx#:[id number] Doxy 100 Inj 100 MG In NS Inj 100 / 100 100 ML @ 100 mls/hr IV.SIG Q12H [facility] Rx#:[id number] Diflucan 100 mg Premix Bag 50 50 / 50 ML @ 100 mls/hr IV.SIG Q24H [facility] Rx#:[id number] Oral 600 / 600 870 / 870 Output: Urine 800 / 800 900 / 900 Other: Date of Last Bowel Movement 03/14/18 03/14/18 # Bowel Movements 1 1 Narrative: on 02 NC awake and alert, appears less tachypneic moist oral mucosa anicteric no nuchal rigidity no rales, decreased breath sounds bases, no wheezes regular rhythm abdomen soft, nontender extremities no edema, no calf swelling neuro exam- unremarkable Results - Labs CBC & Chem 7: 03/14/18 12:17 03/14/18 12:17 Laboratory Results - last 24 hr 03/10/18 03/13/18 03/14/18 05:33 13:36 12:17 WBC RBC Hgb Hct MCV MCH MCHC RDW Plt Count MPV Sodium 142 Potassium 4.1 Chloride 113 H Carbon Dioxide 17.3 L Anion Gap 12 BUN 44 H Creatinine 3.16 H Estimated GFR 16 L Random Glucose 122 H Calcium 10.1 Phosphorus 2.7 Albumin 2.0 L TB (QFT) Gold In Tube Negative TB Test (QFT) Nil 0.02 TB Test Mitogen - Nil 1.06 TB Test Antigen - Nil 0 Misc Test Result Cancelled Misc Test Comment Cancelled 03/14/18 12:17 WBC 15.7 H RBC 2.89 L Hgb 8.5 L Hct 27.4 L MCV 94.8 MCH 29.4 MCHC 31.1 L RDW 13.6 Plt Count 331 MPV 9.2 Sodium Potassium Chloride Carbon Dioxide Anion Gap BUN Creatinine Estimated GFR Random Glucose Calcium Phosphorus Albumin TB (QFT) Gold In Tube TB Test (QFT) Nil TB Test Mitogen - Nil TB Test Antigen - Nil Misc Test Result Misc Test Comment Microbiology 03/13/18 13:36 Bronchial - Right Gram Stain - Final 03/13/18 13:36 Bronchial - Right Bronchial Culture - Preliminary Immature growth - reincubate 03/13/18 13:36 Bronchial Washings - Right Fungal Smear - Final No fungal elements seen - Procedures 03/12- bronchoscopy Assessment and Plan - Assessment (1) Pneumonia Code(s): J18.9 - Pneumonia, unspecified organism Status: Acute Plan: continue Cefepime, Doxycycline and Fluconazole-blood cultures negative- TB Quantiferon test pending. keep on oxygen to keep O2 sat > 90%. continue neb treatment. ID f/u appreciated. pulmonary consulted; plan for bronchoscopy tomorrow. (2) Acute hypoxemic respiratory failure Code(s): J96.01 - Acute respiratory failure with hypoxia Status: Acute Plan: keep on oxygen to keep O2 sat> 90%- continue neb treatment; treat pneumonia as noted above. bronchoscopy tomorrow. (3) S/P kidney transplant Code(s): Z94.0 - Kidney transplant status Status: Chronic Plan: renal function seems at her baseline- will continue with immunosuppression therapy- monitor renal function.nephrology following. (4) Hypertension Code(s): I10 - Essential (primary) hypertension Status: Chronic Plan: continue home meds and continue to monitor- will adjust the regimen as needed. (5) Hypernatremia Code(s): E87.0 - Hyperosmolality and hypernatremia Status: Acute Plan: will monitor.nephrology following. - Plan 47 years old female (1) Pneumonia Code(s): J18.9 - Pneumonia, unspecified organism Status: Acute Plan: continue Cefepime, Vibramycin and Fluconazole- blood cultures negative- TB Quantiferon test negative keep on oxygen to keep O2 sat > 90%. continue neb treatment. ID f/u appreciated. S/P bronchoscopy 03/13- cultures negative so far (2) Acute hypoxemic respiratory failure Code(s): J96.01 - Acute respiratory failure with hypoxia Status: Acute Plan: keep on oxygen to keep O2 sat> 90%- continue neb treatment; treat pneumonia as noted above. will likely need home 02- will do walk test prior to DC (3) S/P kidney transplant Code(s): Z94.0 - Kidney transplant status Status: Chronic Plan: renal function seems at her baseline- will continue with immunosuppression therapy- monitor renal function. nephrology following. (4) Hypertension Code(s): I10 - Essential (primary) hypertension Status: Chronic Plan: continue home meds and continue to monitor- will adjust the regimen as needed. (5) Hypernatremia- resolved Code(s): E87.0 - Hyperosmolality and hypernatremia Status: Acute Plan: will monitor.nephrology following. PT eval and treat daily- Increase activity as respiratory status tolerates Heparin SQ - (1) Pneumonia Qualifiers: Pneumonia type: due to unspecified organism Laterality: bilateral Lung location: lower lobe of lung Qualified Code(s): J18.1 - Lobar pneumonia, unspecified organism (4) Hypertension Qualifiers: Hypertension type: essential hypertension Qualified Code(s): I10 - Essential (primary) hypertension
[2018-03-15] MEDS: predniSONE 5 MG Tablet PO SCH (10:03)
[2018-03-15] MEDS: Metoprolol Tartrate 100 MG Tablet PO SCH ×2 (10:03→21:06)
[2018-03-15] MEDS: amLODIPine 5 MG Tablet PO SCH (10:03)
[2018-03-15 11:10] LABS: Calcium 11.1 mg/dL (8.5-10.1); Carbon Dioxide 17.6 meq/L (21.0-32.0); Phosphorus 2.4 mg/dL (2.5-4.9)
--- NOTE | 2018-03-15 15:54 | XR ---
EXAM DATE: 03/15/2018 3:43 PM EDT AGE/SEX: 47 years / Female INDICATIONS: Pneumonia CLINICAL DATA: This is the patient's subsequent encounter. Patient reports that signs and symptoms h ave been present for 2 weeks and indicates a pain score of 0/10. MEDICAL/SURGICAL HISTORY: . Hypertension. Gallbladder disease . Kidney transplant. COMPARISON: [facility], CHEST 1V SINGLE AP, 03/11/2018. . FINDINGS: The cardiac silhouette is normal in transverse diameter. There is patchy alveolar disease bilaterally compatible with edema or pneumonia. There has been no significant change when compared to the prior exam. CONCLUSION: Bilateral edema versus pneumonia unchanged Electronically signed by: Christo Carter MD 03/15/2018 3:53 PM EDT
[2018-03-16] MEDS: Heparin - SQ 10,000 UNITS/ML Vial SQ SCH ×4 (04:42→18:13)
[2018-03-16] MEDS: Metoprolol Tartrate 100 MG Tablet PO SCH ×2 (08:28→21:41)
[2018-03-16] MEDS: amLODIPine 5 MG Tablet PO SCH (08:28)
[2018-03-16] MEDS: predniSONE 5 MG Tablet PO SCH (08:28)
--- NOTE | 2018-03-16 08:43 | P.PNNP ---
Subjective Interval history: No fever. On 3 liters of oxygen by NC. Cultures are negative so far. Physical Exam Vital signs: Vital Signs 03/15/18 11:30 03/15/18 12:00 03/15/18 16:00 Temperature 98.5 F 98.0 F Pulse Rate 67 64 Respiratory Rate 17 18 Blood Pressure 148/94 H 147/88 H Pulse Oximetry 95 95 98 03/15/18 20:00 03/16/18 00:00 03/16/18 02:23 Temperature 98.0 F 97.8 F Pulse Rate 70 60 54 L Respiratory Rate 17 18 Blood Pressure 148/89 H 163/93 H Pulse Oximetry 96 98 03/16/18 04:00 03/16/18 05:14 Temperature 97.6 F Pulse Rate 69 53 L Respiratory Rate 18 Blood Pressure 142/91 H Pulse Oximetry 98 Intake & Output 03/15/18 03/16/18 03/16/18 18:59 06:59 18:59 Intake Total 360 / 360 390 / 390 Balance 360 / 360 390 / 390 Weight 47.9 kg Intake: IV 150 / 150 Maxipime Inj 1,000 MG In NS Inj 100 / 100 100 ML @ 200 mls/hr IV.SIG Q24H [facility] Rx#:[id number] Diflucan 100 mg Premix Bag 50 50 / 50 ML @ 100 mls/hr IV.SIG Q24H [facility] Rx#:[id number] Oral 360 / 360 240 / 240 Other: # Voids 2 Date of Last Bowel Movement 03/14/18 - Constitutional no acute distress - Routine HEENT Exam Head: Present: normocephalic, atraumatic Eye: Present: EOMI, PERRL - Routine Neck Exam Present: supple, full ROM. Absent: JVD - Routine Respiratory Exam Present: rales, wheezes - Routine Cardiovascular Exam Present: RRR, S1, S2 - Routine Abdominal Exam Present: soft, normoactive bowel sounds - Routine Exam Perineum Description: Intact - Routine Extremities Exam Absent: edema - Routine Skin Exam Present: intact - Routine Neurological Exam Present: alert, oriented X3 Assessment and Plan - Assessment (1) S/P kidney transplant Code(s): Z94.0 - Kidney transplant status Status: Chronic Plan: Renal function has been at baseline. Hx of living unrelated transplant from 2010. Continue immunosuppressive medications. She is maintained on Myfortic, Prednisone, Nulogix (once monthly infusion, due in 2 weeks). Monitor renal function and urine output. Avoid nephrotoxic agents. PO fluids encouraged. Off IVF. (2) Chronic kidney disease, stage 4 (severe) Code(s): N18.4 - Chronic kidney disease, stage 4 (severe) Status: Acute Plan: Renal function is stable. She has stage IV to V CKD, at baseline at this point. No need for dialysis. Avoid nephrotoxic agents. (3) Pneumonia Code(s): J18.9 - Pneumonia, unspecified organism Status: Acute Qualifiers: Pneumonia type: due to unspecified organism Laterality: bilateral Lung location: lower lobe of lung Qualified Code(s): J18.1 - Lobar pneumonia, unspecified organism Plan: s/p broch 03/13. Pending results. She is on airborne precautions pending TB Quantiferon. Antibiotics include Cefepime, doxycycline (switched to PO) and Zithromax. ID following. s/p bronchoscopy. (4) Hyperosmolality and hypernatremia Code(s): E87.0 - Hyperosmolality and hypernatremia Status: Acute Plan: Improved.
--- NOTE | 2018-03-16 09:22 | P.PN ---
Subjective Interval history: patient feeling better and stronger states she had up and ambulate slowly around the room this am Physical Exam Vital signs: Vital Signs 03/15/18 11:30 03/15/18 12:00 03/15/18 16:00 Temperature 98.5 F 98.0 F Pulse Rate 67 64 Respiratory Rate 17 18 Blood Pressure 148/94 H 147/88 H Pulse Oximetry 95 95 98 03/15/18 20:00 03/16/18 00:00 03/16/18 02:23 Temperature 98.0 F 97.8 F Pulse Rate 70 60 54 L Respiratory Rate 17 18 Blood Pressure 148/89 H 163/93 H Pulse Oximetry 96 98 03/16/18 04:00 03/16/18 05:14 Temperature 97.6 F Pulse Rate 69 53 L Respiratory Rate 18 Blood Pressure 142/91 H Pulse Oximetry 98 Intake & Output 03/15/18 03/16/18 03/16/18 18:59 06:59 18:59 Intake Total 360 / 360 390 / 390 Balance 360 / 360 390 / 390 Weight 47.9 kg Intake: IV 150 / 150 Maxipime Inj 1,000 MG In NS Inj 100 / 100 100 ML @ 200 mls/hr IV.SIG Q24H [facility] Rx#:[id number] Diflucan 100 mg Premix Bag 50 50 / 50 ML @ 100 mls/hr IV.SIG Q24H [facility] Rx#:[id number] Oral 360 / 360 240 / 240 Other: # Voids 2 Date of Last Bowel Movement 03/14/18 Narrative: on 02 NC awake and alert, appears less tachypneic moist oral mucosa anicteric no nuchal rigidity no rales, decreased breath sounds bases, no wheezes regular rhythm abdomen soft, nontender extremities no edema, no calf swelling neuro exam- unremarkable Results - Labs CBC & Chem 7: 03/14/18 12:17 03/15/18 09:49 Laboratory Results - last 24 hr 03/15/18 09:49 Sodium 145 Potassium 4.0 Chloride 113 H Carbon Dioxide 17.6 L Anion Gap 14 BUN 43 H Creatinine 3.29 H Estimated GFR 15 L Random Glucose 109 H Calcium 11.1 H D Phosphorus 2.4 L Albumin 2.0 L Microbiology 03/13/18 13:36 Bronchial - Right Gram Stain - Final 03/13/18 13:36 Bronchial - Right Bronchial Culture - Final Heavy growth normal respiratory paige 03/13/18 13:36 Bronchial Brushings - Right Acid Fast Bacilli Smear - Final No acid fast bacilli seen - Imaging Impressions Chest X-Ray 03/15/18 00:00 CONCLUSION: Bilateral edema versus pneumonia unchanged - Procedures 03/12- bronchoscopy Assessment and Plan - Assessment (1) Pneumonia Code(s): J18.9 - Pneumonia, unspecified organism Status: Acute (2) Acute hypoxemic respiratory failure Code(s): J96.01 - Acute respiratory failure with hypoxia Status: Acute Plan: keep on oxygen to keep O2 sat> 90%- continue neb treatment; treat pneumonia as noted above. bronchoscopy tomorrow. (3) S/P kidney transplant Code(s): Z94.0 - Kidney transplant status Status: Chronic Plan: renal function seems at her baseline- will continue with immunosuppression therapy- monitor renal function.nephrology following. (4) Hypertension Code(s): I10 - Essential (primary) hypertension Status: Chronic Plan: continue home meds and continue to monitor- will adjust the regimen as needed. (5) Hypernatremia Code(s): E87.0 - Hyperosmolality and hypernatremia Status: Acute Plan: will monitor.nephrology following. - Plan 47 years old female (1) Pneumonia Code(s): J18.9 - Pneumonia, unspecified organism Status: Acute Plan: continue Cefepime, Vibramycin and Fluconazole- blood cultures negative- TB Quantiferon test negative keep on oxygen to keep O2 sat > 90%. continue neb treatment. ID f/u appreciated. S/P bronchoscopy 03/13- cultures negative so far (2) Acute hypoxemic respiratory failure Code(s): J96.01 - Acute respiratory failure with hypoxia Status: Acute Plan: keep on oxygen to keep O2 sat> 90%- continue neb treatment; treat pneumonia as noted above. will likely need home 02- will do walk test prior to DC- will do one now (3) S/P kidney transplant Code(s): Z94.0 - Kidney transplant status Status: Chronic Plan: renal function seems at her baseline- will continue with immunosuppression therapy- monitor renal function. nephrology following. stable (4) Hypertension Code(s): I10 - Essential (primary) hypertension Status: Chronic Plan: continue home meds and continue to monitor- will adjust the regimen as needed. (5) Hypernatremia- resolved Code(s): E87.0 - Hyperosmolality and hypernatremia Status: Acute Plan: will monitor.nephrology following. PT eval and treat daily- Increase activity as respiratory status tolerates Heparin SQ CM consult for home 02 arrangements - (1) Pneumonia Qualifiers: Pneumonia type: due to unspecified organism Laterality: bilateral Lung location: lower lobe of lung Qualified Code(s): J18.1 - Lobar pneumonia, unspecified organism (4) Hypertension Qualifiers: Hypertension type: essential hypertension Qualified Code(s): I10 - Essential (primary) hypertension
[2018-03-16 11:58] LABS: Albumin 1.9 g/dL (3.4-5.0); Calcium 11.4 mg/dL (8.5-10.1); Carbon Dioxide 16.8 meq/L (21.0-32.0); Phosphorus 2.9 mg/dL (2.5-4.9); Potassium 3.7 meq/L (3.5-5.1)
--- NOTE | 2018-03-16 12:47 | P.PNID ---
Subjective Remarks: Patient says her breathing is better. States that she is not as short of breath like before when she walks from the bathroom to bed. She still appears to me to be short of breath when she talks. Dry cough No fever. No chest pain. Denies chills. White blood cell count is still elevated. Chest x-ray still has bilateral infiltrates. Eager to go home. Bronchoscopy lavage AFB smear is negative. TB QuantiFERON test is negative. Sputum cultures as no growth. 47/F with h/o kidney transplant in 2010- now with failing transplant came to the hospital because of a two week h/o progressively worsening dyspnea and cough. Cough is non productive. ? low grade fevers at home. Patient did have a inconclusive TB quantiferon test x 2 and was to repeat this month. No recent travel . No pets at home. No sick contacts. Antibiotics: Doxycycline Hyclate (Vibramycin) 100 mg PO BID [facility] Last Admin: 03/14/18 11:01 Dose: 100 mg Cefepime HCl 1,000 mg/ Sodium (Chloride) 100 mls @ 200 mls/hr IV.SIG Q24H [facility] Last Infusion: 03/14/18 11:32 Dose: Infused Fluconazole (Diflucan 100 Mg Premix Bag) 50 mls @ 100 mls/hr IV.SIG Q24H [facility] Last Infusion: 03/13/18 22:20 Dose: Infused Lines: Peripheral IV intact Past Medical History: H/o kidney transplant Allergies/Adverse Reactions: Allergies No Known Allergies Allergy (Uncoded 03/10/18 08:58) NONE Objective Vital Signs 03/15/18 16:00 03/15/18 20:00 03/16/18 00:00 Temperature 98.0 F 98.0 F 97.8 F Pulse Rate 64 70 60 Respiratory Rate 18 17 18 Blood Pressure 147/88 H 148/89 H 163/93 H Pulse Oximetry 98 96 98 Pulse Oximetry [Resting on Room Air] Pulse Oximetry [Resting with Oxygen] 03/16/18 02:23 03/16/18 04:00 03/16/18 05:14 Temperature 97.6 F Pulse Rate 54 L 69 53 L Respiratory Rate 18 Blood Pressure 142/91 H Pulse Oximetry 98 Pulse Oximetry [Resting on Room Air] Pulse Oximetry [Resting with Oxygen] 03/16/18 08:00 03/16/18 12:09 Temperature 97.6 F Pulse Rate 59 L Respiratory Rate 20 Blood Pressure 142/94 H Pulse Oximetry 97 Pulse Oximetry [Resting on Room Air] 83 L Pulse Oximetry [Resting with Oxygen] 94 L Intake & Output 03/15/18 03/16/18 03/16/18 18:59 06:59 18:59 Intake Total 360 / 360 390 / 390 Balance 360 / 360 390 / 390 Weight 47.9 kg Intake: IV 150 / 150 Maxipime Inj 1,000 MG In NS Inj 100 / 100 100 ML @ 200 mls/hr IV.SIG Q24H [facility] Rx#:[id number] Diflucan 100 mg Premix Bag 50 50 / 50 ML @ 100 mls/hr IV.SIG Q24H [facility] Rx#:[id number] Oral 360 / 360 240 / 240 Other: # Voids 2 Date of Last Bowel Movement 03/14/18 03/13/18 13:36 Bronchial - Right Gram Stain - Final 03/13/18 13:36 Bronchial - Right Bronchial Culture - Final Heavy growth normal respiratory paige 03/13/18 13:36 Bronchial Brushings - Right Acid Fast Bacilli Smear - Final No acid fast bacilli seen 03/13/18 13:36 Bronchial Washings - Right Fungal Smear - Final No fungal elements seen 03/13/18 13:36 Bronchial Washings - Right Fungal Culture - Pending 03/13/18 16:10 Urine - Clean Catch Urine Streptococcus pneumoniae Antigen ( M - Final Presumptive negative for streptococcus pneumoniae antigen, suggesting no current or recent infection. Infection due to Streptococcus pneumoniae cannot be ruled out since the antigen present in the sample may be below the detection limit of the test. 03/13/18 16:10 Urine - Clean Catch Urine Legionella Antigen - Final Presumptive negative for Legionella pneumophila serogroup 1 antigen in urine, suggesting no recent or recurrent infection. Infection due to Legionella cannot be ruled out since other serogroups and species may cause disease, antigen may not be present in urine in early infection, and the level of antigen present in the urine may be below the detection limit of the test. Lab - Hematology Results 03/14/18 12:17 WBC 15.7 H RBC 2.89 L Hgb 8.5 L Hct 27.4 L MCV 94.8 MCH 29.4 MCHC 31.1 L RDW 13.6 Plt Count 331 MPV 9.2 Lab - Chemistry Results 03/14/18 03/15/18 03/16/18 12:17 09:49 09:24 Sodium 142 145 145 Potassium 4.1 4.0 3.7 Chloride 113 H 113 H 114 H Carbon Dioxide 17.3 L 17.6 L 16.8 L Anion Gap 12 14 14 BUN 44 H 43 H 47 H Creatinine 3.16 H 3.29 H 3.36 H Estimated GFR 16 L 15 L 15 L Random Glucose 122 H 109 H 125 H Calcium 10.1 11.1 H D 11.4 H Phosphorus 2.7 2.4 L 2.9 Albumin 2.0 L 2.0 L 1.9 L Imaging: ITS Impressions Chest CT 03/07/18 17:26 CONCLUSION: 1. Bilateral pulmonary infiltrates likely infectious in etiology. Noncardiogenic pulmonary edema could have a similar appearance . Chest X-Ray 03/15/18 00:00 CONCLUSION: Bilateral edema versus pneumonia unchanged Physical Exam: GENERAL: Alert and oriented, no acute distress. HEENT: Pupils reactive to light. Extraocular movements intact. No icterus. NECK: Supple without adenopathy. No swelling. LUNGS: Diffuse rhonchi and decreased breath sounds. HEART: Regular S1 and S2. No murmurs rubs or gallops. ABDOMEN: Bowel sounds present, soft, nontender. EXTREMITIES: No clubbing cyanosis or edema. SKIN: No rash. NEUROLOGIC: Nonfocal. PSYCH: Calm and cooperative. Assessment and Plan (1) Pneumonia Status: Acute Code(s): J18.9 - Pneumonia, unspecified organism (2) S/P kidney transplant Status: Chronic Code(s): Z94.0 - Kidney transplant status (3) Chronic kidney disease, stage 4 (severe) Status: Acute Code(s): N18.4 - Chronic kidney disease, stage 4 (severe) - Plan 1. Monitor bronchoscopy culture 2. Obtain mycoplasma serology. 3. Discontinue airborne isolation 4. Continue IV Cefepime 5. Continue Azithromycin p.o. 6. Continue Doxycycline. This medication will be changed to p.o. because patient is complaining of pain with infusion. 7. Stop Diflucan. 8. Monitor white blood cell count. CBC ordered for today. (1) Pneumonia Qualifiers: Pneumonia type: due to unspecified organism Laterality: bilateral Lung location: lower lobe of lung Qualified Code(s): J18.1 - Lobar pneumonia, unspecified organism
[2018-03-16 17:07] LABS: Baso % (Auto) 0.2 % (0.0-2.0); Eos % (Auto) 0.1 % (0.0-4.0); Hemoglobin 9.1 gm/dL (11.6-15.3); Lymph # (Auto) 0.3 th/mm3 (1.0-4.8); Lymph % (Auto) 2.4 % (9.0-44.0); Mean Corpuscular HGB Conc 31.3 % (32.0-36.0); Mean Corpuscular Hemoglobin 29.7 pg (27.0-34.0); Mean Platelet Volume 9.2 fL (7.0-11.0); Mono # (Auto) 0.3 th/mm3 (0.0-0.9); Mono % (Auto) 2.6 % (0.0-8.0); Neut % (Auto) 94.7 % (16.0-70.0); Platelet Count 413 th/mm3 (150-450); Red Blood Count 3.05 mil/mm3 (4.00-5.30); Red Cell Distribution Width 13.7 % (11.6-17.2); White Blood Count 12.7 th/mm3 (4.0-11.0)
[2018-03-16] MEDS: Azithromycin 250 MG Tablet PO SCH (17:14)
[2018-03-16 17:54] LABS: Platelet Estimate Normal (Normal); Platelet Morphology Normal (Normal); Toxic Granulation 1+
[2018-03-17] MEDS: Heparin - SQ 10,000 UNITS/ML Vial SQ SCH ×2 (01:47→12:16)
[2018-03-17] MEDS: amLODIPine 5 MG Tablet PO SCH (09:16)
[2018-03-17] MEDS: predniSONE 5 MG Tablet PO SCH (09:16)
[2018-03-17] MEDS: Metoprolol Tartrate 100 MG Tablet PO SCH (09:16)
[2018-03-17] MEDS: Azithromycin 250 MG Tablet PO SCH (09:17)
--- NOTE | 2018-03-17 09:46 | P.PNNP ---
Subjective Interval history: Feels better today. Able to ambulate without severe dyspnea. Pending walk test prior to discharge. AM labs ordered. <Ramandeep Webster - Last Filed: 03/17/18 09:43> Physical Exam Vital signs: Vital Signs 03/16/18 12:00 03/16/18 12:09 03/16/18 16:00 Temperature 98.4 F 97.9 F Pulse Rate 64 66 Respiratory Rate 18 18 Blood Pressure 144/92 H 159/98 H Pulse Oximetry 93 L 95 Pulse Oximetry [Resting on Room Air] 83 L Pulse Oximetry [Resting with Oxygen] 94 L 03/16/18 20:00 03/16/18 21:12 03/17/18 00:00 Temperature 99 F 98.6 F Pulse Rate 77 57 L Respiratory Rate 18 18 Blood Pressure 154/85 H 143/87 H Pulse Oximetry 94 L 95 96 Pulse Oximetry [Resting on Room Air] Pulse Oximetry [Resting with Oxygen] 03/17/18 04:00 03/17/18 08:00 Temperature 99.8 F H 98.3 F Pulse Rate 66 67 Respiratory Rate 18 18 Blood Pressure 146/90 H 155/83 H Pulse Oximetry 97 96 Pulse Oximetry [Resting on Room Air] Pulse Oximetry [Resting with Oxygen] Intake & Output 03/16/18 03/17/18 03/17/18 18:59 06:59 18:59 Intake Total 720 / 720 360 / 360 Balance 720 / 720 360 / 360 Weight 47.5 kg Intake: Oral 720 / 720 360 / 360 Other: # Voids 2 3 # Incontinent Voids 0 # Urine Diapers 0 - Constitutional no acute distress - Routine HEENT Exam Head: Present: normocephalic Eye: Present: EOMI - Routine Respiratory Exam Present: crackles. Absent: accessory muscle use, respiratory distress - Routine Cardiovascular Exam Present: RRR, S1, S2 - Routine Abdominal Exam Present: soft, normoactive bowel sounds - Routine Skin Exam Present: intact, warm - Routine Neurological Exam Present: alert, oriented X3, CN II-XII intact <Ramandeep Webster - Last Filed: 03/17/18 09:43> Vital signs: Vital Signs 03/16/18 16:00 03/16/18 20:00 03/16/18 21:12 Temperature 97.9 F 99 F Pulse Rate 66 77 Respiratory Rate 18 18 Blood Pressure 159/98 H 154/85 H Pulse Oximetry 95 94 L 95 03/17/18 00:00 03/17/18 04:00 03/17/18 08:00 Temperature 98.6 F 99.8 F H 98.3 F Pulse Rate 57 L 66 67 Respiratory Rate 18 18 18 Blood Pressure 143/87 H 146/90 H 155/83 H Pulse Oximetry 96 97 97 03/17/18 08:13 03/17/18 12:00 03/17/18 12:07 Temperature 98.4 F Pulse Rate 67 68 66 Respiratory Rate 20 Blood Pressure 132/82 Pulse Oximetry 96 Intake & Output 03/16/18 03/17/18 03/17/18 18:59 06:59 18:59 Intake Total 720 / 720 360 / 360 100 / 100 Balance 720 / 720 360 / 360 100 / 100 Weight 47.5 kg Intake: IV 100 / 100 Maxipime Inj 1,000 MG In NS Inj 100 / 100 100 ML @ 200 mls/hr IV.SIG Q24H [facility] Rx#:[id number] Oral 720 / 720 360 / 360 Other: # Voids 2 3 # Incontinent Voids 0 # Urine Diapers 0 <Fredrick Metzger - Last Filed: 03/17/18 14:13> Assessment and Plan - Assessment (1) S/P kidney transplant Code(s): Z94.0 - Kidney transplant status Status: Chronic Plan: Renal function has been at baseline, repeat labs ordered. Hx of living unrelated transplant from 2010. Continue immunosuppressive medications. She is maintained on Myfortic, Prednisone, Nulogix (once monthly infusion, due in 2 weeks). Monitor renal function and urine output. Avoid nephrotoxic agents. PO fluids encouraged. (2) Chronic kidney disease, stage 4 (severe) Code(s): N18.4 - Chronic kidney disease, stage 4 (severe) Status: Acute Plan: ee above. Renal function is stable. She has stage IV to V CKD, at baseline at this point. No need for dialysis. Avoid nephrotoxic agents. Has outpatient appt with Dr. Arambula end of this month. (3) Pneumonia Code(s): J18.9 - Pneumonia, unspecified organism Status: Acute Qualifiers: Pneumonia type: due to unspecified organism Laterality: bilateral Lung location: lower lobe of lung Qualified Code(s): J18.1 - Lobar pneumonia, unspecified organism Plan: s/p broch 03/13. Pending results. TB Quantiferon negative. Antibiotics include Cefepime and PO doxycycline. ID following. (4) Hyperosmolality and hypernatremia Code(s): E87.0 - Hyperosmolality and hypernatremia Status: Acute Plan: Improved. <Ramandeep Webster - Last Filed: 03/17/18 09:43> - Assessment (1) S/P kidney transplant Code(s): Z94.0 - Kidney transplant status Status: Chronic (2) Chronic kidney disease, stage 4 (severe) Code(s): N18.4 - Chronic kidney disease, stage 4 (severe) Status: Acute (3) Pneumonia Code(s): J18.9 - Pneumonia, unspecified organism Status: Acute Qualifiers: Pneumonia type: due to unspecified organism Laterality: bilateral Lung location: lower lobe of lung Qualified Code(s): J18.1 - Lobar pneumonia, unspecified organism (4) Hyperosmolality and hypernatremia Code(s): E87.0 - Hyperosmolality and hypernatremia Status: Acute - Attending Attestation patient was seen and examined. Agree with above assessment and plan. <Fredrick Metzger - Last Filed: 03/17/18 14:13>
--- NOTE | 2018-03-17 12:41 | P.PN ---
Subjective Interval history: patient feeling better up and ambulating with less shortness of breath no diarrhea wanting to go home today Physical Exam Vital signs: Vital Signs 03/16/18 16:00 03/16/18 20:00 03/16/18 21:12 Temperature 97.9 F 99 F Pulse Rate 66 77 Respiratory Rate 18 18 Blood Pressure 159/98 H 154/85 H Pulse Oximetry 95 94 L 95 03/17/18 00:00 03/17/18 04:00 03/17/18 08:00 Temperature 98.6 F 99.8 F H 98.3 F Pulse Rate 57 L 66 67 Respiratory Rate 18 18 18 Blood Pressure 143/87 H 146/90 H 155/83 H Pulse Oximetry 96 97 97 03/17/18 08:13 03/17/18 12:00 Temperature 98.4 F Pulse Rate 67 68 Respiratory Rate 20 Blood Pressure 132/82 Pulse Oximetry 96 Intake & Output 03/16/18 03/17/18 03/17/18 18:59 06:59 18:59 Intake Total 720 / 720 360 / 360 100 / 100 Balance 720 / 720 360 / 360 100 / 100 Weight 47.5 kg Intake: IV 100 / 100 Maxipime Inj 1,000 MG In NS Inj 100 / 100 100 ML @ 200 mls/hr IV.SIG Q24H [facility] Rx#:[id number] Oral 720 / 720 360 / 360 Other: # Voids 2 3 # Incontinent Voids 0 # Urine Diapers 0 Narrative: on 02 NC awake and alert, no acute distress moist oral mucosa anicteric no nuchal rigidity no rales, decreased breath sounds bases, no wheezes regular rhythm abdomen soft, nontender extremities no edema, no calf swelling neuro exam- unremarkable Results - Labs CBC & Chem 7: 03/16/18 16:25 03/16/18 09:24 Laboratory Results - last 24 hr 03/16/18 16:25 WBC 12.7 H RBC 3.05 L Hgb 9.1 L Hct 29.0 L MCV 95.0 MCH 29.7 MCHC 31.3 L RDW 13.7 Plt Count 413 MPV 9.2 Prelim Diff (Auto) Slide review pending Neut % (Auto) 94.7 H Lymph % (Auto) 2.4 L [place] % (Auto) 2.6 Eos % (Auto) 0.1 Baso % (Auto) 0.2 Neut # (Auto) 12.0 H Lymph # (Auto) 0.3 L [place] # (Auto) 0.3 Eos # (Auto) 0.0 Baso # (Auto) 0.0 WBC Differential . Diff Scan Auto diff confirmed Differential Comment . Toxic Granulation 1+ H Platelet Estimate Normal Platelet Morphology Normal - Procedures 03/12- bronchoscopy Assessment and Plan - Assessment (1) Pneumonia Code(s): J18.9 - Pneumonia, unspecified organism Status: Acute Plan: continue Cefepime, Doxycycline and Fluconazole-blood cultures negative- TB Quantiferon test pending. keep on oxygen to keep O2 sat > 90%. continue neb treatment. ID f/u appreciated. pulmonary consulted; plan for bronchoscopy tomorrow. (2) Acute hypoxemic respiratory failure Code(s): J96.01 - Acute respiratory failure with hypoxia Status: Acute Plan: keep on oxygen to keep O2 sat> 90%- continue neb treatment; treat pneumonia as noted above. bronchoscopy tomorrow. (3) S/P kidney transplant Code(s): Z94.0 - Kidney transplant status Status: Chronic Plan: renal function seems at her baseline- will continue with immunosuppression therapy- monitor renal function.nephrology following. (4) Hypertension Code(s): I10 - Essential (primary) hypertension Status: Chronic Plan: continue home meds and continue to monitor- will adjust the regimen as needed. (5) Hypernatremia Code(s): E87.0 - Hyperosmolality and hypernatremia Status: Acute Plan: will monitor.nephrology following. - Plan 47 years old female (1) Pneumonia Code(s): J18.9 - Pneumonia, unspecified organism Status: Acute Plan: continue Cefepime, po Doxycycline and Fluconazole- blood cultures negative- TB Quantiferon test negative keep on oxygen to keep O2 sat > 90%. continue neb treatment. ID f/u appreciated. S/P bronchoscopy 03/13- cultures negative so far WBC ct down to 12 will complete course of antiiotics - po as per ID recommendations (2) Acute hypoxemic respiratory failure Code(s): J96.01 - Acute respiratory failure with hypoxia Status: Acute Plan: keep on oxygen to keep O2 sat> 90%- continue neb treatment; treat pneumonia as noted above. will likely need home 02- will do walk test now (3) S/P kidney transplant Code(s): Z94.0 - Kidney transplant status Status: Chronic Plan: renal function seems at her baseline- will continue with immunosuppression therapy- monitor renal function. nephrology following. stable (4) Hypertension Code(s): I10 - Essential (primary) hypertension Status: Chronic Plan: continue home meds and continue to monitor- will adjust the regimen as needed. (5) Hypernatremia- resolved Code(s): E87.0 - Hyperosmolality and hypernatremia Status: Acute Plan: will monitor.nephrology following. PT eval and treat daily- Increase activity as respiratory status tolerates Heparin SQ CM consult for home 02 arrangements home today if cleared with Dr. Lance - with po recommendations She ff up with Dr. malik Arambula as OP - (1) Pneumonia Qualifiers: Pneumonia type: due to unspecified organism Laterality: bilateral Lung location: lower lobe of lung Qualified Code(s): J18.1 - Lobar pneumonia, unspecified organism (4) Hypertension Qualifiers: Hypertension type: essential hypertension Qualified Code(s): I10 - Essential (primary) hypertension
--- NOTE | 2018-03-17 13:05 | P.DS ---
Date of admission: 03/08/18 15:50 Primary care physician: UNKNOWN Brief History from admission: this is a 47 y/o female with history of kidney failure- s/p renal transplant, hypertension, who presented to ER with worsening sob over the past two weeks. she says that now when she's walking she's having more sob. she has dry cough. she had some low grade fever at home. she doesn't recall any recent sick exposures. DS: Diagnosis - Discharge Diagnosis (1) Pneumonia Status: Acute (2) Acute hypoxemic respiratory failure Status: Acute (3) S/P kidney transplant Status: Chronic (4) Hypertension Status: Chronic (5) Hypernatremia Status: Acute DS: Medications - Discharge Medications Prescriptions: azithromycin 500 mg PO DAILY 7 Days #14 tab doxycycline hyclate 100 mg PO BID 7 Days #14 cap DS: Summary Hospital Course: (1) Pneumonia Code(s): J18.9 - Pneumonia, unspecified organism Status: Acute Plan: continue Cefepime, Doxycycline and Fluconazole-blood cultures negative- TB Quantiferon test pending. keep on oxygen to keep O2 sat > 90%. continue neb treatment. ID f/u appreciated. pulmonary consulted; plan for bronchoscopy tomorrow. (2) Acute hypoxemic respiratory failure Code(s): J96.01 - Acute respiratory failure with hypoxia Status: Acute Plan: keep on oxygen to keep O2 sat> 90%- continue neb treatment; treat pneumonia as noted above. bronchoscopy tomorrow. (3) S/P kidney transplant Code(s): Z94.0 - Kidney transplant status Status: Chronic Plan: renal function seems at her baseline- will continue with immunosuppression therapy- monitor renal function.nephrology following. (4) Hypertension Code(s): I10 - Essential (primary) hypertension Status: Chronic Plan: continue home meds and continue to monitor- will adjust the regimen as needed. (5) Hypernatremia Code(s): E87.0 - Hyperosmolality and hypernatremia Status: Acute Plan: will monitor.nephrology following. - Plan 47 years old female (1) Pneumonia Code(s): J18.9 - Pneumonia, unspecified organism Status: Acute Plan: continue Cefepime, po Doxycycline and Fluconazole- blood cultures negative- TB Quantiferon test negative keep on oxygen to keep O2 sat > 90%. continue neb treatment. ID f/u appreciated. S/P bronchoscopy 03/13- cultures negative so far WBC ct down to 12 will complete course of antiiotics - po as per ID recommendations (2) Acute hypoxemic respiratory failure Code(s): J96.01 - Acute respiratory failure with hypoxia Status: Acute Plan: keep on oxygen to keep O2 sat> 90%- continue neb treatment; treat pneumonia as noted above. will likely need home 02- will do walk test now (3) S/P kidney transplant Code(s): Z94.0 - Kidney transplant status Status: Chronic Plan: renal function seems at her baseline- will continue with immunosuppression therapy- monitor renal function. nephrology following. stable (4) Hypertension Code(s): I10 - Essential (primary) hypertension Status: Chronic Plan: continue home meds and continue to monitor- will adjust the regimen as needed. (5) Hypernatremia- resolved Code(s): E87.0 - Hyperosmolality and hypernatremia Status: Acute Plan: will monitor.nephrology following. PT eval and treat daily- Increase activity as respiratory status tolerates Heparin SQ CM consult for home 02 arrangements home today if cleared with Dr. Lance - with po recommendations She ff up with Dr. malik Arambula as OP - Time Spent with Patient Total time spent providing and/or coordinating discharge services: - Quality: VTE Deep Vein Thrombosis/Pulmonary Embolism Present on Admission: Yes Exam Vital signs: Vital Signs 03/16/18 16:00 03/16/18 20:00 03/16/18 21:12 Temperature 97.9 F 99 F Pulse Rate 66 77 Respiratory Rate 18 18 Blood Pressure 159/98 H 154/85 H Pulse Oximetry 95 94 L 95 03/17/18 00:00 03/17/18 04:00 03/17/18 08:00 Temperature 98.6 F 99.8 F H 98.3 F Pulse Rate 57 L 66 67 Respiratory Rate 18 18 18 Blood Pressure 143/87 H 146/90 H 155/83 H Pulse Oximetry 96 97 97 03/17/18 08:13 03/17/18 12:00 Temperature 98.4 F Pulse Rate 67 68 Respiratory Rate 20 Blood Pressure 132/82 Pulse Oximetry 96 Intake & Output 03/16/18 03/17/18 03/17/18 18:59 06:59 18:59 Intake Total 720 / 720 360 / 360 100 / 100 Balance 720 / 720 360 / 360 100 / 100 Weight 47.5 kg Intake: IV 100 / 100 Maxipime Inj 1,000 MG In NS Inj 100 / 100 100 ML @ 200 mls/hr IV.SIG Q24H OLVIN Rx#:[id number] Oral 720 / 720 360 / 360 Other: # Voids 2 3 # Incontinent Voids 0 # Urine Diapers 0 Results Procedures completed during hospitalization: 03/12- bronchoscopy Completed studies during hospitalization: Pending at discharge 03/13/18 13:37 Cytology [PTH] Routine Labs on day of discharge: Labs from last 24 hours 03/16/18 03/16/18 16:25 16:25 WBC 12.7 H RBC 3.05 L Hgb 9.1 L Hct 29.0 L MCV 95.0 MCH 29.7 MCHC 31.3 L RDW 13.7 Plt Count 413 MPV 9.2 Prelim Diff (Auto) Slide review pending Neut % (Auto) 94.7 H Lymph % (Auto) 2.4 L [place] % (Auto) 2.6 Eos % (Auto) 0.1 Baso % (Auto) 0.2 Neut # (Auto) 12.0 H Lymph # (Auto) 0.3 L [place] # (Auto) 0.3 Eos # (Auto) 0.0 Baso # (Auto) 0.0 WBC Differential . Diff Scan Auto diff confirmed Differential Comment . Toxic Granulation 1+ H Platelet Estimate Normal Platelet Morphology Normal M. pneumoniae Interp Pending Mycoplasma pneumon IgG Pending Mycoplasma pneumon IgM Pending - Impressions ITS Impressions Chest CT 03/07/18 17:26 CONCLUSION: 1. Bilateral pulmonary infiltrates likely infectious in etiology. Noncardiogenic pulmonary edema could have a similar appearance . Chest X-Ray 03/15/18 00:00 CONCLUSION: Bilateral edema versus pneumonia unchanged Discharge Plan - Discharge Disposition Patient Disposition: 01 Discharge Home - Discharge Condition Condition: Stable - Discharge Order Discharge Orders: Discharge Order (Routine); Ordered 03/17/18 Ordered By: Sameer Lux - Discharge Details Anticipated Discharge Date: 03/17/18 - Physicians Team Primary Care Provider: UNKNOWN, Attending Provider: Sameer Lux Other Providers: Fredrick Metzger MD ; Corry Corcoran MD ; [place] ; Mark Turcios MD ; Gigi Lance MD
--- NOTE | 2018-03-17 13:07 | P.PNID ---
Subjective Remarks: Patient says her breathing is better. Dry cough. No sputum. No fever. No chest pain. Denies chills. White blood cell count is decreasing. Cultures negative. Bronchoscopy lavage AFB smear is negative. TB QuantiFERON test is negative. Sputum cultures as no growth. 47/F with h/o kidney transplant in 2010- now with failing transplant came to the hospital because of a two week h/o progressively worsening dyspnea and cough. Cough is non productive. ? low grade fevers at home. Patient did have a inconclusive TB quantiferon test x 2 and was to repeat this month. No recent travel . No pets at home. No sick contacts. Antibiotics: Doxycycline Hyclate (Vibramycin) 100 mg PO BID OLVIN Cefepime HCl 1,000 mg/ Sodium (Chloride) 100 mls @ 200 mls/hr IV.SIG Q24H OLVIN Azithromycin. Lines: Peripheral IV intact Past Medical History: H/o kidney transplant Allergies/Adverse Reactions: Allergies No Known Allergies Allergy (Uncoded 03/10/18 08:58) NONE Objective Vital Signs 03/16/18 16:00 03/16/18 20:00 03/16/18 21:12 Temperature 97.9 F 99 F Pulse Rate 66 77 Respiratory Rate 18 18 Blood Pressure 159/98 H 154/85 H Pulse Oximetry 95 94 L 95 03/17/18 00:00 03/17/18 04:00 03/17/18 08:00 Temperature 98.6 F 99.8 F H 98.3 F Pulse Rate 57 L 66 67 Respiratory Rate 18 18 18 Blood Pressure 143/87 H 146/90 H 155/83 H Pulse Oximetry 96 97 97 03/17/18 08:13 03/17/18 12:00 Temperature 98.4 F Pulse Rate 67 68 Respiratory Rate 20 Blood Pressure 132/82 Pulse Oximetry 96 Intake & Output 03/16/18 03/17/18 03/17/18 18:59 06:59 18:59 Intake Total 720 / 720 360 / 360 100 / 100 Balance 720 / 720 360 / 360 100 / 100 Weight 47.5 kg Intake: IV 100 / 100 Maxipime Inj 1,000 MG In NS Inj 100 / 100 100 ML @ 200 mls/hr IV.SIG Q24H OLVIN Rx#:[id number] Oral 720 / 720 360 / 360 Other: # Voids 2 3 # Incontinent Voids 0 # Urine Diapers 0 03/13/18 13:36 Bronchial - Right Gram Stain - Final 03/13/18 13:36 Bronchial - Right Bronchial Culture - Final Heavy growth normal respiratory paige 03/13/18 13:36 Bronchial Brushings - Right Acid Fast Bacilli Smear - Final No acid fast bacilli seen 03/13/18 13:36 Bronchial Washings - Right Fungal Smear - Final No fungal elements seen 03/13/18 13:36 Bronchial Washings - Right Fungal Culture - Pending Lab - Hematology Results 03/16/18 16:25 WBC 12.7 H RBC 3.05 L Hgb 9.1 L Hct 29.0 L MCV 95.0 MCH 29.7 MCHC 31.3 L RDW 13.7 Plt Count 413 MPV 9.2 Prelim Diff (Auto) Slide review pending Neut % (Auto) 94.7 H Lymph % (Auto) 2.4 L [place] % (Auto) 2.6 Eos % (Auto) 0.1 Baso % (Auto) 0.2 Neut # (Auto) 12.0 H Lymph # (Auto) 0.3 L [place] # (Auto) 0.3 Eos # (Auto) 0.0 Baso # (Auto) 0.0 WBC Differential . Diff Scan Auto diff confirmed Differential Comment . Toxic Granulation 1+ H Platelet Estimate Normal Platelet Morphology Normal Lab - Chemistry Results 03/16/18 09:24 Sodium 145 Potassium 3.7 Chloride 114 H Carbon Dioxide 16.8 L Anion Gap 14 BUN 47 H Creatinine 3.36 H Estimated GFR 15 L Random Glucose 125 H Calcium 11.4 H Phosphorus 2.9 Albumin 1.9 L Imaging: ITS Impressions Chest CT 03/07/18 17:26 CONCLUSION: 1. Bilateral pulmonary infiltrates likely infectious in etiology. Noncardiogenic pulmonary edema could have a similar appearance . Chest X-Ray 03/15/18 00:00 CONCLUSION: Bilateral edema versus pneumonia unchanged Physical Exam: GENERAL: Alert and oriented, no acute distress. HEENT: Pupils reactive to light. Extraocular movements intact. No icterus. NECK: Supple without adenopathy. No swelling. LUNGS: Decreased breath sounds. HEART: Regular S1 and S2. No murmurs rubs or gallops. ABDOMEN: Bowel sounds present, soft, nontender. EXTREMITIES: No clubbing cyanosis or edema. SKIN: No rash. NEUROLOGIC: Nonfocal. PSYCH: Calm and cooperative. Assessment and Plan (1) Pneumonia Status: Acute Code(s): J18.9 - Pneumonia, unspecified organism (2) S/P kidney transplant Status: Chronic Code(s): Z94.0 - Kidney transplant status (3) Chronic kidney disease, stage 4 (severe) Status: Acute Code(s): N18.4 - Chronic kidney disease, stage 4 (severe) - Plan 1. Discontinue Cefepime 2. Continue Azithromycin p.o. x 7 days. 3. Continue Doxycycline pO x 7 days. Okay to discharge. Follow up wit Dr Corcoran in 1 week. (1) Pneumonia Qualifiers: Pneumonia type: due to unspecified organism Laterality: bilateral Lung location: lower lobe of lung Qualified Code(s): J18.1 - Lobar pneumonia, unspecified organism
== END 2018-03-17 17:22 | disposition home or self-care (01) ==
LOC: PHEDA 16:55 → PHED 16:55 → PH3 20:45 → N04 03-12 17:59
PROVIDERS: ADMIT Hospitalist; ATTEND Internal Medicine
DX: B59 Pneumocystosis; I12.0 Hypertensive chronic kidney disease with stage 5 chronic kidney disease or end stage renal disease; J96.01 Acute respiratory failure with hypoxia; J81.1 Chronic pulmonary edema; E86.1 Hypovolemia; N18.4 Chronic kidney disease, stage 4 (severe); E78.00 Pure hypercholesterolemia, unspecified; E87.0 Hyperosmolality and hypernatremia; Z94.0 Kidney transplant status

== ENCOUNTER 2018-03-30 01:10 | Inpatient (IN) ==
[2018-03-30] MEDS ORDERED: Sod Chloride 0.9% Inj 1,000 ML IV.SIG ONE ×2 (01:48→03:15)
[2018-03-30 02:10] LABS: Baso % (Auto) 0.2 % (0.0-2.0); Eos # (Auto) 0.1 th/mm3 (0.0-0.4); Eos % (Auto) 0.3 % (0.0-4.0); Hematocrit 31.5 % (35.0-46.0); Hemoglobin 10.4 gm/dL (11.6-15.3); Lymph # (Auto) 0.7 th/mm3 (1.0-4.8); Lymph % (Auto) 3.2 % (9.0-44.0); Mean Corpuscular Hemoglobin 30.5 pg (27.0-34.0); Mean Corpuscular Volume 92.3 fL (80.0-100.0); Mean Platelet Volume 10.7 fL (7.0-11.0); Mono # (Auto) 2.2 th/mm3 (0.0-0.9); Mono % (Auto) 10.3 % (0.0-8.0); Neut # (Auto) 18.8 th/mm3 (1.8-7.7); Platelet Count 309 th/mm3 (150-450); Red Blood Count 3.42 mil/mm3 (4.00-5.30); Red Cell Distribution Width 14.3 % (11.6-17.2); White Blood Count 21.8 th/mm3 (4.0-11.0)
--- NOTE | 2018-03-30 02:16 | ED ---
HPI General Chief complaint: Abdominal Pain Stated complaint: abd pain x 10 hrs calcium levels high Time Seen by Provider: 03/30/18 01:35 History of Present Illness HPI narrative: 47-year-old female history of chronic kidney disease s/p renal transplant 2011 here for evaluation of acute onset of abdominal pain. Pain is tolerated yesterday, dull, 7 out of 10, associated with nausea and vomiting, last bowel movement was this morning normal, vomitus is nonbloody non-bilious. Patient has no fevers chills or night sweats although she feels cold. Patient was recently discharged from the hospital after evaluation of community- acquired pneumonia. Patient takes Myfortic delayed release as well as prednisone. Related Data Home Medications Medication Instructions Recorded Confirmed amlodipine 5 mg PO DAILY 03/07/18 03/30/18 aspirin [Aspir-81] 81 mg PO DAILY 03/07/18 03/30/18 atorvastatin 10 mg PO HS 03/07/18 03/30/18 belatacept [Nulojix] 10 mg/kg IV QMONTH 03/07/18 03/30/18 mycophenolate sodium [Myfortic] 360 mg PO BID 03/07/18 03/30/18 potassium chloride 10 meq PO DAILY 03/07/18 03/30/18 prednisone 7.5 mg PO DAILY 03/07/18 03/30/18 metoprolol tartrate 100 mg PO BID 03/09/18 03/30/18 Allergies Allergy/AdvReac Type Severity Reaction Status Date / Time No Known Allergies Allergy Verified 03/30/18 08:54 Review of Systems Except as stated in HPI: all other systems reviewed are negative [facility] Medical History Medical History Chronic kidney disease, stage IV (severe) (Acute) Gall bladder disease (Acute) High cholesterol (Acute) Hypertension (Acute) Surgical History Surgical History History of cholecystectomy (Acute) Kidney transplant recipient (Acute) Family History Family History Father History of brain tumor Social History Social History Substance History: No History of Abuse Second Hand Smoke Exposure: No Smoking Status: Never smoker How Often Do You Have a Drink Containing Alcohol: Never Recent Travel in [facility] within the Last 8 Weeks: No Recent Out of Country Travel within the Last 8 Weeks: No Immunization History Tetanus Immunization: >5 Years Hx Influenza Vaccine This Season: No Exam Narrative Exam Narrative: GENERAL: Alert oriented 3 no acute distress. SKIN: Focused skin assessment warm/dry. HEAD: Atraumatic. Normocephalic. EYES: Pupils equal and round. No scleral icterus. No injection or drainage. ENT: No nasal bleeding or discharge. Mucous membranes pink and moist. NECK: Trachea midline. No JVD. CARDIOVASCULAR: Regular rate and rhythm. No murmur appreciated. RESPIRATORY: No accessory muscle use. Clear to auscultation. Breath sounds equal bilaterally. GASTROINTESTINAL: Abdomen soft, non-tender, nondistended. Hepatic and splenic margins not palpable. MUSCULOSKELETAL: No obvious deformities. No clubbing. No cyanosis. No edema. NEUROLOGICAL: Awake and alert. No obvious cranial nerve deficits. Motor grossly within normal limits. Normal speech. PSYCHIATRIC: Appropriate mood and affect; insight and judgment normal. Course Initial Documented Vital Signs Temperature 97.8 F 03/30/18 01:32 Pulse Rate 79 03/30/18 01:32 Respiratory Rate 16 03/30/18 01:32 Blood Pressure 152/92 H 03/30/18 01:32 Pulse Oximetry 97 03/30/18 01:32 Last Documented Vital Signs Temperature 99.4 F 03/31/18 08:00 Pulse Rate 96 H 03/31/18 08:00 Respiratory Rate 18 03/31/18 08:00 Blood Pressure 133/67 03/31/18 08:00 Pulse Oximetry 93 L 03/31/18 08:00 Medical Decision Making [facility] Narrative Medical decision making narrative: Leukocystosis: Lung monet on the abdomen CAT scan shows right lower lobe infiltrate, bronchoalveolar lavage done last admission showed PCP on 03/13, GFR is low, will consult ID to evaluate the use of bactrim if needed. Pancreatitis: lipase is elevated, hypercalcemia, mild elevation of BUN and creatinine from last visit, patient clinically dehydrated, was given 2 L of IV fluid bolus, Protonix, morphine. patient denies drinking, her pancreatitis could be caused by hypercalcemia. Will check PTH, her hypercalcemia could be due to CKD. Lab Data Result diagrams: 03/31/18 05:09 03/31/18 05:19 Lab Results 03/30/18 03/30/18 03/30/18 Range/Units 02:02 02:02 02:02 CBC w Diff Slide review pending WBC 21.8 H (4.0-11.0) th/mm3 RBC 3.42 L (4.00-5.30) mil/mm3 Hgb 10.4 L (11.6-15.3) gm/dL Hct 31.5 L (35.0-46.0) % MCV 92.3 (80.0-100.0) fL MCH 30.5 (27.0-34.0) pg MCHC 33.0 (32.0-36.0) % RDW 14.3 (11.6-17.2) % Plt Count 309 (150-450) th/mm3 MPV 10.7 (7.0-11.0) fL Neut % (Auto) 86.0 H (16.0-70.0) % Lymph % (Auto) 3.2 L (9.0-44.0) % Hend[place] % (Auto) 10.3 H (0.0-8.0) % Eos % (Auto) 0.3 (0.0-4.0) % Baso % (Auto) 0.2 (0.0-2.0) % Neut # (Auto) 18.8 H (1.8-7.7) th/mm3 Lymph # (Auto) 0.7 L (1.0-4.8) th/mm3 [place] # (Auto) 2.2 H (0.0-0.9) th/mm3 Eos # (Auto) 0.1 (0.0-0.4) th/mm3 Baso # (Auto) 0.0 (0.0-0.2) th/mm3 WBC Differential Manual diff final Seg Neuts % (Manual) 81 H (16-70) % Band Neuts % (Manual) (0-6) % Lymphocytes % (Manual) 4 L (9-44) % Monocytes % (Manual) 11 H (0-8) % Eosinophils % (Manual) 1 (0-4) % Basophils % (Manual) (0-2) % Metamyelocytes % (Man) 3 H (0-1) % Abs Neuts (Manual) 18.3 H (1.8-7.7) th/mm3 Differential Comment . Platelet Estimate Normal (Normal) Platelet Morphology Normal (Normal) Ovalocytes 1+ H (None) PT 10.7 (9.8-11.6) sec INR 1.1 Ratio APTT 20.8 L (24.3-30.1) sec Puncture Site Patient Temperature O2 Saturation (90-100) % ABG pH (7.380-7.420) ABG pCO2 (38-42) mmHg ABG pO2 (61-120) mmHg ABG HCO3 (22-26) mmol/L ABG O2 Content (12.0-20.0) Vol % ABG Base Excess (-2-2) mmol/L ABG Methemoglobin (0-2) % Marino Test Hemoglobin (12.0-16.0) G/DL Carboxyhemoglobin (0-4) % O2 Delivery Device Inspired O2 % Critical Value Sodium 141 (136-145) meq/L Potassium 4.5 (3.5-5.1) meq/L Chloride 111 H (98-107) meq/L Carbon Dioxide 20.6 L (21.0-32.0) meq/L Anion Gap 9 (5-15) meq/L BUN 67 H (7-18) mg/dL Creatinine 4.70 H (0.50-1.00) mg/dL Estimated GFR 10 L (>89) mL/min Random Glucose 93 (74-106) mg/dL Lactic Acid (0.4-2.0) mmol/L Calcium 10.7 H (8.5-10.1) mg/dL Total Bilirubin 0.4 (0.2-1.0) mg/dL AST 16 (15-37) U/L ALT 25 (10-53) U/L Alkaline Phosphatase 134 H (45-117) U/L Total Creatine Kinase 23 L (26-192) U/L Troponin I Less than 0.02 L (0.02-0.05) ng/mL Total Protein 5.9 L (6.4-8.2) g/dL Albumin 2.4 L (3.4-5.0) g/dL Triglycerides (42-150) mg/dL Lipase 9042 H (73-393) U/L PTH Intact (12.4-76.8) pg/mL Ur Collection Type Urine Color (Yellw/Straw) Urine Clarity (Clear) Urine pH (5.0-8.5) Ur Specific [place] (1.002-1.035) Urine Protein (Neg-Trace) mg/dL Urine Glucose (UA) (Negative) mg/dL Urine Ketones (Negative) mg/dL Urine Occult Blood (Negative) Urine Nitrate (Negative) Urine Bilirubin (Negative) Urine Urobilinogen (Less than 2) mg/dL Ur Leukocyte Esterase (Negative) Urine WBC (0-5) /hpf Ur Squamous Epith Cells (0-5) /hpf Hyaline Casts (0-3) /lpf Micro UA Comment Urine Culture Comments 03/30/18 03/30/18 03/30/18 Range/Units 02:02 04:11 08:10 CBC w Diff WBC (4.0-11.0) th/mm3 RBC (4.00-5.30) mil/mm3 Hgb (11.6-15.3) gm/dL Hct (35.0-46.0) % MCV (80.0-100.0) fL MCH (27.0-34.0) pg MCHC (32.0-36.0) % RDW (11.6-17.2) % Plt Count (150-450) th/mm3 MPV (7.0-11.0) fL Neut % (Auto) (16.0-70.0) % Lymph % (Auto) (9.0-44.0) % Hendry % (Auto) (0.0-8.0) % Eos % (Auto) (0.0-4.0) % Baso % (Auto) (0.0-2.0) % Neut # (Auto) (1.8-7.7) th/mm3 Lymph # (Auto) (1.0-4.8) th/mm3 [place] # (Auto) (0.0-0.9) th/mm3 Eos # (Auto) (0.0-0.4) th/mm3 Baso # (Auto) (0.0-0.2) th/mm3 WBC Differential Seg Neuts % (Manual) (16-70) % Band Neuts % (Manual) (0-6) % Lymphocytes % (Manual) (9-44) % Monocytes % (Manual) (0-8) % Eosinophils % (Manual) (0-4) % Basophils % (Manual) (0-2) % Metamyelocytes % (Man) (0-1) % Abs Neuts (Manual) (1.8-7.7) th/mm3 Differential Comment Platelet Estimate (Normal) Platelet Morphology (Normal) Ovalocytes (None) PT (9.8-11.6) sec INR Ratio APTT (24.3-30.1) sec Puncture Site Right radial Patient Temperature 98.6 O2 Saturation 94 (90-100) % ABG pH 7.34 L (7.380-7.420) ABG pCO2 32 L (38-42) mmHg ABG pO2 87 (61-120) mmHg ABG HCO3 17 L (22-26) mmol/L ABG O2 Content 11.2 L (12.0-20.0) Vol % ABG Base Excess -7.7 L (-2-2) mmol/L ABG Methemoglobin 1.6 (0-2) % Mar[place] Test Present Hemoglobin 8.3 L (12.0-16.0) G/DL Carboxyhemoglobin 1.5 (0-4) % O2 Delivery Device Room air Inspired O2 21 % Critical Value No Sodium (136-145) meq/L Potassium (3.5-5.1) meq/L Chloride (98-107) meq/L Carbon Dioxide (21.0-32.0) meq/L Anion Gap (5-15) meq/L BUN (7-18) mg/dL Creatinine (0.50-1.00) mg/dL Estimated GFR (>89) mL/min Random Glucose (74-106) mg/dL Lactic Acid 1.4 (0.4-2.0) mmol/L Calcium (8.5-10.1) mg/dL Total Bilirubin (0.2-1.0) mg/dL AST (15-37) U/L ALT (10-53) U/L Alkaline Phosphatase (45-117) U/L Total Creatine Kinase (26-192) U/L Troponin I (0.02-0.05) ng/mL Total Protein (6.4-8.2) g/dL Albumin (3.4-5.0) g/dL Triglycerides (42-150) mg/dL Lipase (73-393) U/L PTH Intact (12.4-76.8) pg/mL Ur Collection Type Clean catch Urine Color Yellow (Yellw/Straw) Urine Clarity Clear (Clear) Urine pH 5.0 (5.0-8.5) Ur Specific [place] 1.015 (1.002-1.035) Urine Protein 30 H (Neg-Trace) mg/dL Urine Glucose (UA) Negative (Negative) mg/dL Urine Ketones Negative (Negative) mg/dL Urine Occult Blood Trace (Negative) Urine Nitrate Negative (Negative) Urine Bilirubin Negative (Negative) Urine Urobilinogen 0.2 (Less than 2) mg/dL Ur Leukocyte Esterase Negative (Negative) Urine WBC 0-5 (0-5) /hpf Ur Squamous Epith Cells 0-5 (0-5) /hpf Hyaline Casts 0-3 (0-3) /lpf Micro UA Comment Culture not ind Urine Culture Comments Culture not ind 03/30/18 03/30/18 03/30/18 Range/Units 09:24 09:24 09:24 CBC w Diff Slide review pending WBC 20.1 H (4.0-11.0) th/mm3 RBC 2.89 L (4.00-5.30) mil/mm3 Hgb 8.4 L D (11.6-15.3) gm/dL Hct 26.8 L (35.0-46.0) % MCV 92.6 (80.0-100.0) fL MCH 29.2 (27.0-34.0) pg MCHC 31.6 L (32.0-36.0) % RDW 14.4 (11.6-17.2) % Plt Count 217 (150-450) th/mm3 MPV 9.2 (7.0-11.0) fL Neut % (Auto) 85.7 H (16.0-70.0) % Lymph % (Auto) 2.8 L (9.0-44.0) % Hend[place] % (Auto) 11.0 H (0.0-8.0) % Eos % (Auto) 0.3 (0.0-4.0) % Baso % (Auto) 0.2 (0.0-2.0) % Neut # (Auto) 17.2 H (1.8-7.7) th/mm3 Lymph # (Auto) 0.6 L (1.0-4.8) th/mm3 [place] # (Auto) 2.2 H (0.0-0.9) th/mm3 Eos # (Auto) 0.1 (0.0-0.4) th/mm3 Baso # (Auto) 0.0 (0.0-0.2) th/mm3 WBC Differential Manual diff final Seg Neuts % (Manual) 77 H (16-70) % Band Neuts % (Manual) 7 H (0-6) % Lymphocytes % (Manual) 4 L (9-44) % Monocytes % (Manual) 7 (0-8) % Eosinophils % (Manual) (0-4) % Basophils % (Manual) 1 (0-2) % Metamyelocytes % (Man) 4 H (0-1) % Abs Neuts (Manual) 17.7 H (1.8-7.7) th/mm3 Differential Comment . Platelet Estimate Normal (Normal) Platelet Morphology Normal (Normal) Ovalocytes (None) PT (9.8-11.6) sec INR Ratio APTT (24.3-30.1) sec Puncture Site Patient Temperature O2 Saturation (90-100) % ABG pH (7.380-7.420) ABG pCO2 (38-42) mmHg ABG pO2 (61-120) mmHg ABG HCO3 (22-26) mmol/L ABG O2 Content (12.0-20.0) Vol % ABG Base Excess (-2-2) mmol/L ABG Methemoglobin (0-2) % [place] Test Hemoglobin (12.0-16.0) G/DL Carboxyhemoglobin (0-4) % O2 Delivery Device Inspired O2 % Critical Value Sodium 146 H (136-145) meq/L Potassium 4.4 (3.5-5.1) meq/L Chloride 117 H (98-107) meq/L Carbon Dioxide 18.5 L (21.0-32.0) meq/L Anion Gap 11 (5-15) meq/L BUN 59 H (7-18) mg/dL Creatinine 4.20 H (0.50-1.00) mg/dL Estimated GFR 11 L (>89) mL/min Random Glucose 84 (74-106) mg/dL Lactic Acid (0.4-2.0) mmol/L Calcium 9.4 D (8.5-10.1) mg/dL Total Bilirubin (0.2-1.0) mg/dL AST (15-37) U/L ALT (10-53) U/L Alkaline Phosphatase (45-117) U/L Total Creatine Kinase (26-192) U/L Troponin I (0.02-0.05) ng/mL Total Protein (6.4-8.2) g/dL Albumin (3.4-5.0) g/dL Triglycerides (42-150) mg/dL Lipase 4093 H (73-393) U/L PTH Intact 7.6 L (12.4-76.8) pg/mL Ur Collection Type Urine Color (Yellw/Straw) Urine Clarity (Clear) Urine pH (5.0-8.5) Ur Specific [place] (1.002-1.035) Urine Protein (Neg-Trace) mg/dL Urine Glucose (UA) (Negative) mg/dL Urine Ketones (Negative) mg/dL Urine Occult Blood (Negative) Urine Nitrate (Negative) Urine Bilirubin (Negative) Urine Urobilinogen (Less than 2) mg/dL Ur Leukocyte Esterase (Negative) Urine WBC (0-5) /hpf Ur Squamous Epith Cells (0-5) /hpf Hyaline Casts (0-3) /lpf Micro UA Comment Urine Culture Comments 03/30/18 03/30/18 03/30/18 Range/Units 09:24 09:24 16:02 CBC w Diff WBC (4.0-11.0) th/mm3 RBC (4.00-5.30) mil/mm3 Hgb (11.6-15.3) gm/dL Hct (35.0-46.0) % MCV (80.0-100.0) fL MCH (27.0-34.0) pg MCHC (32.0-36.0) % RDW (11.6-17.2) % Plt Count (150-450) th/mm3 MPV (7.0-11.0) fL Neut % (Auto) (16.0-70.0) % Lymph % (Auto) (9.0-44.0) % Hend[place] % (Auto) (0.0-8.0) % Eos % (Auto) (0.0-4.0) % Baso % (Auto) (0.0-2.0) % Neut # (Auto) (1.8-7.7) th/mm3 Lymph # (Auto) (1.0-4.8) th/mm3 [place] # (Auto) (0.0-0.9) th/mm3 Eos # (Auto) (0.0-0.4) th/mm3 Baso # (Auto) (0.0-0.2) th/mm3 WBC Differential Seg Neuts % (Manual) (16-70) % Band Neuts % (Manual) (0-6) % Lymphocytes % (Manual) (9-44) % Monocytes % (Manual) (0-8) % Eosinophils % (Manual) (0-4) % Basophils % (Manual) (0-2) % Metamyelocytes % (Man) (0-1) % Abs Neuts (Manual) (1.8-7.7) th/mm3 Differential Comment Platelet Estimate (Normal) Platelet Morphology (Normal) Ovalocytes (None) PT (9.8-11.6) sec INR Ratio APTT (24.3-30.1) sec Puncture Site Patient Temperature O2 Saturation (90-100) % ABG pH (7.380-7.420) ABG pCO2 (38-42) mmHg ABG pO2 (61-120) mmHg ABG HCO3 (22-26) mmol/L ABG O2 Content (12.0-20.0) Vol % ABG Base Excess (-2-2) mmol/L ABG Methemoglobin (0-2) % Mar[place] Test Hemoglobin (12.0-16.0) G/DL Carboxyhemoglobin (0-4) % O2 Delivery Device Inspired O2 % Critical Value Sodium 147 H (136-145) meq/L Potassium 4.5 (3.5-5.1) meq/L Chloride 116 H (98-107) meq/L Carbon Dioxide 21.6 (21.0-32.0) meq/L Anion Gap 9 (5-15) meq/L BUN 56 H (7-18) mg/dL Creatinine 4.00 H (0.50-1.00) mg/dL Estimated GFR 12 L (>89) mL/min Random Glucose 86 (74-106) mg/dL Lactic Acid (0.4-2.0) mmol/L Calcium 8.9 (8.5-10.1) mg/dL Total Bilirubin (0.2-1.0) mg/dL AST (15-37) U/L ALT (10-53) U/L Alkaline Phosphatase (45-117) U/L Total Creatine Kinase (26-192) U/L Troponin I (0.02-0.05) ng/mL Total Protein (6.4-8.2) g/dL Albumin (3.4-5.0) g/dL Triglycerides 127 (42-150) mg/dL Lipase Cancelled (73-393) U/L PTH Intact (12.4-76.8) pg/mL Ur Collection Type Urine Color (Yellw/Straw) Urine Clarity (Clear) Urine pH (5.0-8.5) Ur Specific [place] (1.002-1.035) Urine Protein (Neg-Trace) mg/dL Urine Glucose (UA) (Negative) mg/dL Urine Ketones (Negative) mg/dL Urine Occult Blood (Negative) Urine Nitrate (Negative) Urine Bilirubin (Negative) Urine Urobilinogen (Less than 2) mg/dL Ur Leukocyte Esterase (Negative) Urine WBC (0-5) /hpf Ur Squamous Epith Cells (0-5) /hpf Hyaline Casts (0-3) /lpf Micro UA Comment Urine Culture Comments 03/31/18 03/31/18 Range/Units 05:09 05:19 CBC w Diff Auto diff final WBC 15.6 H (4.0-11.0) th/mm3 RBC 2.48 L (4.00-5.30) mil/mm3 Hgb 7.3 L (11.6-15.3) gm/dL Hct 23.2 L (35.0-46.0) % MCV 93.5 (80.0-100.0) fL MCH 29.4 (27.0-34.0) pg MCHC 31.5 L (32.0-36.0) % RDW 13.6 (11.6-17.2) % Plt Count 192 (150-450) th/mm3 MPV 10.2 (7.0-11.0) fL Neut % (Auto) 88.4 H (16.0-70.0) % Lymph % (Auto) 3.9 L (9.0-44.0) % [place] % (Auto) 7.3 (0.0-8.0) % Eos % (Auto) 0.2 (0.0-4.0) % Baso % (Auto) 0.2 (0.0-2.0) % Neut # (Auto) 13.9 H (1.8-7.7) th/mm3 Lymph # (Auto) 0.6 L (1.0-4.8) th/mm3 [place] # (Auto) 1.1 H (0.0-0.9) th/mm3 Eos # (Auto) 0.0 (0.0-0.4) th/mm3 Baso # (Auto) 0.0 (0.0-0.2) th/mm3 WBC Differential . Seg Neuts % (Manual) (16-70) % Band Neuts % (Manual) (0-6) % Lymphocytes % (Manual) (9-44) % Monocytes % (Manual) (0-8) % Eosinophils % (Manual) (0-4) % Basophils % (Manual) (0-2) % Metamyelocytes % (Man) (0-1) % Abs Neuts (Manual) (1.8-7.7) th/mm3 Differential Comment . Platelet Estimate (Normal) Platelet Morphology (Normal) Ovalocytes (None) PT (9.8-11.6) sec INR Ratio APTT (24.3-30.1) sec Puncture Site Patient Temperature O2 Saturation (90-100) % ABG pH (7.380-7.420) ABG pCO2 (38-42) mmHg ABG pO2 (61-120) mmHg ABG HCO3 (22-26) mmol/L ABG O2 Content (12.0-20.0) Vol % ABG Base Excess (-2-2) mmol/L ABG Methemoglobin (0-2) % [place] Test Hemoglobin (12.0-16.0) G/DL Carboxyhemoglobin (0-4) % O2 Delivery Device Inspired O2 % Critical Value Sodium 143 (136-145) meq/L Potassium 4.4 (3.5-5.1) meq/L Chloride 113 H (98-107) meq/L Carbon Dioxide 18.6 L (21.0-32.0) meq/L Anion Gap 11 (5-15) meq/L BUN 55 H (7-18) mg/dL Creatinine 4.20 H (0.50-1.00) mg/dL Estimated GFR 11 L (>89) mL/min Random Glucose 64 L (74-106) mg/dL Lactic Acid (0.4-2.0) mmol/L Calcium 8.2 L (8.5-10.1) mg/dL Total Bilirubin 0.5 (0.2-1.0) mg/dL AST 12 L (15-37) U/L ALT 17 (10-53) U/L Alkaline Phosphatase 97 (45-117) U/L Total Creatine Kinase (26-192) U/L Troponin I (0.02-0.05) ng/mL Total Protein 4.4 L D (6.4-8.2) g/dL Albumin 1.6 L D (3.4-5.0) g/dL Triglycerides (42-150) mg/dL Lipase 1350 H (73-393) U/L PTH Intact (12.4-76.8) pg/mL Ur Collection Type Urine Color (Yellw/Straw) Urine Clarity (Clear) Urine pH (5.0-8.5) Ur Specific [place] (1.002-1.035) Urine Protein (Neg-Trace) mg/dL Urine Glucose (UA) (Negative) mg/dL Urine Ketones (Negative) mg/dL Urine Occult Blood (Negative) Urine Nitrate (Negative) Urine Bilirubin (Negative) Urine Urobilinogen (Less than 2) mg/dL Ur Leukocyte Esterase (Negative) Urine WBC (0-5) /hpf Ur Squamous Epith Cells (0-5) /hpf Hyaline Casts (0-3) /lpf Micro UA Comment Urine Culture Comments Imaging Data Radiologist's impression: Abdomen/Pelvis CT 03/30/18 01:48 CONCLUSION: Chest X-Ray 03/30/18 03:38 CONCLUSION: Resolving bilateral airspace infiltrates. Discharge Plan Discharge Disposition Patient Disposition: 30 Still Patient Discharge Condition Condition: Good Discharge Order Discharge Orders: Discharge Order (Routine); Ordered 03/31/18 Ordered By: Ev Mitchell Discharge Details Anticipated Discharge Date: 03/31/18 Discharge Comment: OK to DC home after lunch if tolerating well and tolerating Po pain medication. Physicians Team ED Provider: David Dailey Primary Care Provider: Sea Rizo Attending Provider: Hodan Mckeon Other Providers: [facility],Insurance Discharge Interventions Interventions: ED Discharge Assessment Last Done: 03/30/18 08:23 Status ED Status: Left Department Discharge Information Discharge Date/Time: 03/30/18 08:00
[2018-03-30 02:29] LABS: Activated Partial Thrombo Time 20.8 sec (24.3-30.1); INR 1.1 Ratio; Prothrombin Time 10.7 sec (9.8-11.6)
--- NOTE | 2018-03-30 02:32 | CT ---
EXAM DATE: 03/30/2018 2:15 AM EDT AGE/SEX: 47 years / Female INDICATIONS: Abdominal pain. CLINICAL DATA: This is the patient's initial encounter. Patient reports that signs and symptoms have been present for 1 day and indicates a pain score of 8/10. MEDICAL/SURGICAL HISTORY: Hypertension. Renal disease. Renal transplant. Cholecystectomy. RADIATION DOSE: 5.03 CTDI (mGy) COMPARISON: No prior exams available for comparison. TECHNIQUE: Multiple contiguous axial images were obtained through the abdomen. Images were obtained using multiple row detector helical technique. Using automated exposure control and adjustment of the mA and/or kV according to patient size, radiation dose was kept as low as reasonably achievable to o btain optimal diagnostic quality images. DICOM format image data is available electronically for rev iew and comparison. FINDINGS: Lower Lungs: Pneumonic infiltrate posteriorly in the right lung base. Left lung base is clear Liver: The liver has a homogeneous density without space-occupying lesion. There is no dilation of th e biliary tree. Patient appears to be status post cholecystectomy. Spleen: Homogeneous density without enlargement. Pancreas: Pancreas is edematous with peripancreatic inflammatory stranding. Fluid tracks down both p aracolic gutters into the deep pelvis Kidneys: [place] kidneys are atrophic bilaterally. Pelvic renal transplant on the right Adrenal Glands: Unremarkable. Aorta: The aorta and proximal iliac vessels are grossly unremarkable without aneurysmal dilation. Bowel/Mesentery: The bowel loops are grossly unremarkable. The cecum and sigmoid colon have a normal configuration. Abdominal Wall: Intact. Retroperitoneum: No evidence of adenopathy in the retrocrural, para-aortic, or deep pelvic regions. Bladder: Contours are smooth. Reproductive Organs: No abnormal masses or calcifications seen. Inguinal: The inguinal region is unremarkable without evidence of adenopathy. Bony Structures: Unremarkable. 1. CT findings characteristic of an acute pancreatitis with fluid tracking down both paracolic gutte rs into the deep pelvis. 2. In addition, there appears to be a pneumonic infiltrate posteriorly in the right lung base. 3. [place] kidneys are atrophic. Pelvic renal transplant on the right. Electronically signed by: Riley Mireles MD 03/30/2018 2:30 AM EDT
[2018-03-30 02:48] LABS: Eosinophils 1 % (0-4); Lymphocytes 4 % (9-44); Metamyelocytes 3 % (0-1); Monocytes 11 % (0-8)
[2018-03-30 02:49] LABS: Ovalocytes 1+
[2018-03-30 02:50] LABS: Platelet Estimate Normal (Normal); Platelet Morphology Normal (Normal)
[2018-03-30 03:03] LABS: Chloride 111 meq/L (98-107); Potassium 4.5 meq/L (3.5-5.1); Sodium 141 meq/L (136-145)
[2018-03-30 03:07] LABS: Albumin 2.4 g/dL (3.4-5.0); Anion Gap 9 meq/L (5-15); Blood Urea Nitrogen 67 mg/dL (7-18); Calcium 10.7 mg/dL (8.5-10.1); Carbon Dioxide 20.6 meq/L (21.0-32.0); Glucose,Random 93 mg/dL (74-106)
[2018-03-30 03:10] LABS: Alanine Aminotransferase 25 U/L (10-53); Aspartate Aminotransferase 16 U/L (15-37); Glomerular Filtration Rate 10 mL/min (>89)
[2018-03-30 03:12] LABS: Lipase 9042 U/L (73-393); Total Protein 5.9 g/dL (6.4-8.2)
[2018-03-30 03:13] LABS: Alkaline Phosphatase 134 U/L (45-117)
[2018-03-30] MEDS ORDERED: Pantoprazole Inj 40 MG Vial IV.PUSH STA (03:15)
[2018-03-30] MEDS ORDERED: Bisacodyl 10 MG Supp RECTAL PRN (03:27)
[2018-03-30] MEDS ORDERED: Temazepam 15 MG Capsule PO PRN (03:27)
[2018-03-30] MEDS ORDERED: Morphine Sulfate Inj 2 MG/ML Vial IV.PUSH PRN (03:27)
[2018-03-30 03:30] LABS: Creatine Kinase 23 U/L (26-192)
[2018-03-30] MEDS ORDERED: Morphine Sulfate Inj 2 MG/ML Vial IV.PUSH ONE (03:30)
[2018-03-30 04:25] LABS: ABG Base Excess -7.7 mmol/L (-2-2); ABG PCO2 32 mmHg (38-42); ABG PO2 87 mmHg (61-120)
--- NOTE | 2018-03-30 05:16 | XR ---
EXAM DATE: 03/30/2018 4:12 AM EDT AGE/SEX: 47 years / Female INDICATIONS: . Chest and upper abdomen pain. CLINICAL DATA: This is the patient's initial encounter. Patient reports that signs and symptoms have been present for 2 days and indicates a pain score of 4/10. MEDICAL/SURGICAL HISTORY: None. None. COMPARISON: [facility] – [place], CHEST 1V SINGLE AP, 03/15/2018. . FINDINGS: PA and lateral views of the chest demonstrate improving bilateral airspace disease. Minimal, scattere d areas persist, however. No associated effusions. Heart size is normal. Osseous structures are intac t CONCLUSION: Resolving bilateral airspace infiltrates. Electronically signed by: Riley Mireles MD 03/30/2018 5:15 AM EDT
[2018-03-30] MEDS: Sod Chloride 0.9% Inj 1,000 ML IV.CONT SCH ×3 (05:56→15:07)
[2018-03-30 08:32] LABS: Bilirubin,Urine Negative (Negative); Clarity,Urine Clear (Clear); Color,Urine Yellow (Yellw/Straw); Glucose,Urine (UA) Negative (Negative); Leukocyte Esterase,Urine Negative (Negative); Nitrite,Urine Negative (Negative); Specific Gravity,Urine 1.015 (1.002-1.035); Urobilinogen,Urine 0.2 mg/dL (Less than 2)
[2018-03-30 08:36] LABS: Hyaline Casts,Urine 0-3 /lpf (0-3); Squamous Epithelial Cell,Urine 0-5 /hpf (0-5); WBC,Urine 0-5 /hpf (0-5)
[2018-03-30] MEDS ORDERED: BELATACEPT IV.SIG SCH (09:15)
[2018-03-30] MEDS: Senna/Docusate Sodium 8.6/50 MG Tablet PO SCH ×2 (09:16→21:45)
[2018-03-30] MEDS: predniSONE 5 MG Tablet PO SCH (09:26)
[2018-03-30] MEDS: amLODIPine 5 MG Tablet PO SCH (09:27)
[2018-03-30 09:34] LABS: Baso % (Auto) 0.2 % (0.0-2.0); Eos # (Auto) 0.1 th/mm3 (0.0-0.4); Eos % (Auto) 0.3 % (0.0-4.0); Hematocrit 26.8 % (35.0-46.0); Hemoglobin 8.4 gm/dL (11.6-15.3); Lymph # (Auto) 0.6 th/mm3 (1.0-4.8); Lymph % (Auto) 2.8 % (9.0-44.0); Mean Corpuscular HGB Conc 31.6 % (32.0-36.0); Mean Corpuscular Hemoglobin 29.2 pg (27.0-34.0); Mean Corpuscular Volume 92.6 fL (80.0-100.0); Mean Platelet Volume 9.2 fL (7.0-11.0); Mono # (Auto) 2.2 th/mm3 (0.0-0.9); Neut # (Auto) 17.2 th/mm3 (1.8-7.7); Neut % (Auto) 85.7 % (16.0-70.0); Platelet Count 217 th/mm3 (150-450); Red Blood Count 2.89 mil/mm3 (4.00-5.30); Red Cell Distribution Width 14.4 % (11.6-17.2); White Blood Count 20.1 th/mm3 (4.0-11.0)
--- NOTE | 2018-03-30 09:43 | P.HP ---
History of Present Illness Primary Care Physician: Sea Rizo MD Chief Complaint: Abdominal pain, nausea and vomiting History of Present Illness: 47-year-old female with rather extensive history of hypertension, hypertensive renal failure requiring kidney transplant, recent hospitalization for pneumonia who presented to the emergency department because acute onset abdominal pain. Patient states that yesterday morning she had sudden onset of abdominal pain which she described as generalized abdominal pain with pain scale 9/10. Patient started developing nausea vomiting and she was unable to keep anything down to came to emergency department for evaluation. Patient had workup done which did indicate significant abnormalities with acute pancreatitis , systemic inflammatory response syndrome, acute renal failure, CT scan indicating acute pancreatitis. Patient was admitted with IV fluids, pain control. Upon seeing the patient today she appears to be comfortable. States that the pain is controlled periodically when she is on the medications. She is hungry and would like to have something to drink. Patient denies any other symptomatology at this time. - Diagnosis (1) Pancreatitis (2) Systemic inflammatory response syndrome (3) Acute renal failure superimposed on stage 4 chronic kidney disease (4) Dehydration (5) Abdominal pain (6) Leukocytosis Inpatient Certification: I certify that the inpatient services were ordered in accordance with Medicare regulations governing the order. This includes certification that hospital inpatient services are reasonable and necessary and in the case of services not specified as inpatient-only under 42 CFR 419.22(n), that they are appropriately provided as inpatient services in accordance to with the 2-midnight benchmark under 43 CFR 412.3(e) Estimated Total Length of Stay (Days): 2 Plans for Post Hospital Care: Home Review of Systems All other systems reviewed negative except as stated in HPI Gastrointestinal: Reports abdominal pain, Reports nausea, Reports vomiting PMFSH - History History Provided By: Patient - Medical History Medical History: Medical History (Last Updated 03/30/18 @ 09:39 by DANAE Velez) Chronic kidney disease, stage IV (severe) Gall bladder disease High cholesterol Hypertension - Surgical History Surgical History: Surgical History (Last Reviewed 03/30/18 @ 09:38 by DANAE Velez) History of cholecystectomy Kidney transplant recipient - Family History Family History: Family History (Last Updated 03/30/18 @ 09:04 by DANAE Velez) Father History of brain tumor - Tobacco History Second Hand Smoke Exposure: No Smoking Status: Never smoker - Alcohol History How Often Do You Have a Drink Containing Alcohol: Never - Substance Use History Substance History: No History of Abuse - Travel History Recent Travel in the [place] Within the Last 8 Weeks: No Recent Travel Out of the Country Within the Last 8 Weeks: No - Immunization History Tetanus Immunization: >5 Years Hx Influenza Vaccine This Season: No Medications and Allergies Active Medications: Active Medications Al Hydroxide/Mg Hydroxide (Milk Of Magnesia Liq) 30 ml PO Q12H PRN PRN Reason: Mild Constipation Amlodipine Besylate (Norvasc) 5 mg PO DAILY [facility] Bisacodyl (Dulcolax Supp) 10 mg RECTAL DAILY PRN PRN Reason: SEVERE CONSITIPATION Sodium Chloride (Ns Inj) 1,000 mls @ 150 mls/hr IV.CONT .Q6H40M [facility] Last Admin: 03/30/18 08:51 Dose: 100 mls/hr Lactulose (Lactulose Liq) 30 ml PO DAILY PRN PRN Reason: SEVERE CONSITIPATION Morphine Sulfate (Morphine Inj) 2 mg IV.PUSH Q4H PRN PRN Reason: pain 6-10 Last Admin: 03/30/18 08:47 Dose: 2 mg Mycophenolate Sodium (Myfortic Dr) 360 mg PO BID [facility] Non-Formulary Medication (Belatacept [Nulojix]) 10 mg/kg IV.SIG QMONTH [facility] Non-Formulary Medication (Prednisone [Prednisone]) 7.5 mg PO DAILY [facility] Ondansetron HCl (Zofran Inj) 4 mg IV.PUSH Q6H PRN PRN Reason: NAUSEA OR VOMITING Senna/Docusate Sodium (Carmen-Colace) 1 tab PO BID [facility] Sennosides (Senokot) 17.2 mg PO Q12H PRN PRN Reason: Moderate Constipation Temazepam (Restoril) 15 mg PO HS PRN PRN Reason: INSOMNIA Allergies Allergy/AdvReac Type Severity Reaction Status Date / Time No Known Allergies Allergy Verified 03/30/18 08:54 Home Medications Medication Instructions Recorded Confirmed Type amlodipine 5 mg PO DAILY 03/07/18 03/30/18 History aspirin [Aspir-81] 81 mg PO DAILY 03/07/18 03/30/18 History atorvastatin 10 mg PO HS 03/07/18 03/30/18 History belatacept [Nulojix] 10 mg/kg IV QMONTH 03/07/18 03/30/18 History mycophenolate sodium [Myfortic] 360 mg PO BID 03/07/18 03/30/18 History potassium chloride 10 meq PO DAILY 03/07/18 03/30/18 History prednisone 7.5 mg PO DAILY 03/07/18 03/30/18 History metoprolol tartrate 100 mg PO BID 03/09/18 03/30/18 History Exam Vital signs: Vital Signs 03/30/18 01:32 03/30/18 01:44 03/30/18 01:48 Temperature 97.8 F 98.5 F 98.5 F Pulse Rate 79 87 Respiratory Rate 16 16 Blood Pressure 152/92 H 148/75 H Pulse Oximetry 97 03/30/18 03:41 03/30/18 05:58 03/30/18 07:04 Temperature 98.6 F 98.4 F Pulse Rate 85 88 80 Respiratory Rate 16 16 16 Blood Pressure 158/85 H 148/82 H 156/94 H Pulse Oximetry 03/30/18 08:33 Temperature 98.3 F Pulse Rate 92 H Respiratory Rate 20 Blood Pressure 161/90 H Pulse Oximetry 95 Intake & Output 03/29/18 03/30/18 03/30/18 18:59 06:59 18:59 Intake Total 1999 1000 / 1000 Balance 1999 1000 / 1000 Weight 47.5 kg 47.2 kg Intake: IV 1999 1000 / 1000 NS Inj 1,000 ML @ 150 mls/hr IV 1000 / 1000 .CONT .Q6H40M [facility] Rx#: [id number] NS Inj 1,000 ML @ Wide Open IV. 1000 / 1000 SIG BOLUS ONE Rx#:[id number] Other: Weight On Admission 47.2 kg Narrative: GENERAL: Well-developed, well-nourished, in no acute distress. alert and orientated HEENT: Head is normocephalic without any lesions or masses noted. Facial features are symmetric. Eyes: Pupils equal round reactive to light. Extraocular muscles are intact. Conjunctivae were clear. Oropharyngeal: Pharynx without any erythema edema. Tongue is midline without deviation. Buccal mucosa is moist without any masses or lesions NECK: Supple without any masses. Trachea midline no deviation. No JVD, no bruits are appreciated CARDIAC: Regular rhythm, regular rate. S1/S2 are heard. No murmurs gallops or rubs. LUNGS: Clear to auscultation bilaterally. No wheeze, rhonchi or rales. No use of accessory muscles on inspiration or expiration. ABDOMEN: Soft, mild diffuse abdominal tenderness. Nondistended. Bowel sounds heard in all 4 quadrants. No organomegaly or masses. Negative rebound, negative guarding EXTREMITIES: No edema, pulses are equal bilaterally. No cyanosis or clubbing NEUROLOGY: Mood and affect appear appropriate. Cranial nerves II through XII grossly intact. Muscle strength 5/5 in upper and lower extremities bilaterally. Deep tendon reflexes are 2+ in upper and lower extremities bilaterally. Results - Labs CBC & Chem 7: 03/30/18 02:02 03/30/18 02:02 Labs: Laboratory Results - last 24 hr 03/30/18 03/30/18 03/30/18 02:02 02:02 02:02 CBC w Diff Slide review pending WBC 21.8 H RBC 3.42 L Hgb 10.4 L Hct 31.5 L MCV 92.3 MCH 30.5 MCHC 33.0 RDW 14.3 Plt Count 309 MPV 10.7 Neut % (Auto) 86.0 H Lymph % (Auto) 3.2 L [place] % (Auto) 10.3 H Eos % (Auto) 0.3 Baso % (Auto) 0.2 Neut # (Auto) 18.8 H Lymph # (Auto) 0.7 L [place] # (Auto) 2.2 H Eos # (Auto) 0.1 Baso # (Auto) 0.0 WBC Differential Manual diff final Seg Neuts % (Manual) 81 H Lymphocytes % (Manual) 4 L Monocytes % (Manual) 11 H Eosinophils % (Manual) 1 Metamyelocytes % (Man) 3 H Abs Neuts (Manual) 18.3 H Differential Comment . Platelet Estimate Normal Platelet Morphology Normal Ovalocytes 1+ H PT 10.7 INR 1.1 APTT 20.8 L Puncture Site Patient Temperature O2 Saturation ABG pH ABG pCO2 ABG pO2 ABG HCO3 ABG O2 Content ABG Base Excess ABG Methemoglobin [place] Test Hemoglobin Carboxyhemoglobin O2 Delivery Device Inspired O2 Critical Value Sodium 141 Potassium 4.5 Chloride 111 H Carbon Dioxide 20.6 L Anion Gap 9 BUN 67 H Creatinine 4.70 H Estimated GFR 10 L Random Glucose 93 Lactic Acid Calcium 10.7 H Total Bilirubin 0.4 AST 16 ALT 25 Alkaline Phosphatase 134 H Total Creatine Kinase 23 L Troponin I Less than 0.02 L Total Protein 5.9 L Albumin 2.4 L Lipase 9042 H Ur Collection Type Urine Color Urine Clarity Urine pH Ur Specific [place] Urine Protein Urine Glucose (UA) Urine Ketones Urine Occult Blood Urine Nitrate Urine Bilirubin Urine Urobilinogen Ur Leukocyte Esterase Urine WBC Ur Squamous Epith Cells Hyaline Casts Micro UA Comment Urine Culture Comments 03/30/18 03/30/18 03/30/18 02:02 04:11 08:10 CBC w Diff WBC RBC Hgb Hct MCV MCH MCHC RDW Plt Count MPV Neut % (Auto) Lymph % (Auto) [place] % (Auto) Eos % (Auto) Baso % (Auto) Neut # (Auto) Lymph # (Auto) [place] # (Auto) Eos # (Auto) Baso # (Auto) WBC Differential Seg Neuts % (Manual) Lymphocytes % (Manual) Monocytes % (Manual) Eosinophils % (Manual) Metamyelocytes % (Man) Abs Neuts (Manual) Differential Comment Platelet Estimate Platelet Morphology Ovalocytes PT INR APTT Puncture Site Right radial Patient Temperature 98.6 O2 Saturation 94 ABG pH 7.34 L ABG pCO2 32 L ABG pO2 87 ABG HCO3 17 L ABG O2 Content 11.2 L ABG Base Excess -7.7 L ABG Methemoglobin 1.6 [place] Test Present Hemoglobin 8.3 L Carboxyhemoglobin 1.5 O2 Delivery Device Room air Inspired O2 21 Critical Value No Sodium Potassium Chloride Carbon Dioxide Anion Gap BUN Creatinine Estimated GFR Random Glucose Lactic Acid 1.4 Calcium Total Bilirubin AST ALT Alkaline Phosphatase Total Creatine Kinase Troponin I Total Protein Albumin Lipase Ur Collection Type Clean catch Urine Color Yellow Urine Clarity Clear Urine pH 5.0 Ur Specific [place] 1.015 Urine Protein 30 H Urine Glucose (UA) Negative Urine Ketones Negative Urine Occult Blood Trace Urine Nitrate Negative Urine Bilirubin Negative Urine Urobilinogen 0.2 Ur Leukocyte Esterase Negative Urine WBC 0-5 Ur Squamous Epith Cells 0-5 Hyaline Casts 0-3 Micro UA Comment Culture not ind Urine Culture Comments Culture not ind - Imaging Impressions Abdomen/Pelvis CT 03/30/18 01:48 CONCLUSION: Chest X-Ray 03/30/18 03:38 CONCLUSION: Caprini VTE Risk Assessment Caprini VTE Risk Assessment: Moderate/High Risk (score >= 2) Caprini Risk Assessment Model: Point Value = 1 Point Value = 2 Point Value = 3 Point Value = 5 Age 41-60 Minor surgery BMI > 25 kg/m2 Swollen legs Varicose veins or History of unexplained or recurrent spontaneous Oral contraceptives or hormone replacement Sepsis (< 1 month) Serious lung disease, including pneumonia (< 1 month) Abnormal pulmonary function Acute myocardial infarction Congestive heart failure (< 1 month) History of inflammatory bowel disease Medical patient at bed rest Age 61-74 Arthroscopic surgery Major open surgery (> 45 min) Laparoscopic surgery (> 45 min) Malignancy Confined to bed (> 72 hours) Immobilizing plaster cast Central venous access Age >= 75 History of VTE Family history of VTE Factor V Leiden Prothrombin [id number] Lupus anticoagulant Anticardiolipin antibodies Elevated serum homocysteine Heparin-induced thrombocytopenia Other congenital or acquired thrombophilia Stroke (< 1 month) Elective arthroplasty Hip, pelvis, or leg fracture Acute spinal cord injury (< 1 month) Prophylaxis Regimen: Total Risk Factor Score Risk Level Prophylaxis Regimen 0-1 Low Early ambulation 2 Moderate Order ONE of the following: *Sequential Compression Device (SCD) *Heparin 5000 units SQ BID 3-4 Higher Order ONE of the following medications: *Heparin 5000 units SQ TID *Enoxaparin/Lovenox 40 mg SQ daily (WT < 150 kg, CrCl > 30 mL/min) *Enoxaparin/Lovenox 30 mg SQ daily (WT < 150 kg, CrCl > 10-29 mL/min) *Enoxaparin/Lovenox 30 mg SQ BID (WT < 150 kg, CrCl > 30 mL/min) AND/OR *Sequential Compression Device (SCD) 5 or more Highest Order ONE of the following medications: *Heparin 5000 units SQ TID (Preferred with Epidurals) *Enoxaparin/Lovenox 40 mg SQ daily (WT < 150 kg, CrCl > 30 mL/min) *Enoxaparin/Lovenox 30 mg SQ daily (WT < 150 kg, CrCl > 10-29 mL/min) *Enoxaparin/Lovenox 30 mg SQ BID (WT < 150 kg, CrCl > 30 mL/min) AND *Sequential Compression Device (SCD) Assessment and Plan - Assessment (1) Pancreatitis Code(s): K85.90 - Acute pancreatitis without necrosis or infection, unspecified Status: Acute (2) Systemic inflammatory response syndrome Code(s): R65.10 - Systemic inflammatory response syndrome (SIRS) of non- infectious origin without acute organ dysfunction Status: Acute (3) Acute renal failure superimposed on stage 4 chronic kidney disease Code(s): N17.9 - Acute kidney failure, unspecified; N18.4 - Chronic kidney disease, stage 4 (severe) Status: Acute (4) Dehydration Code(s): E86.0 - Dehydration Status: Acute (5) Abdominal pain Code(s): R10.9 - Unspecified abdominal pain Status: Acute (6) Leukocytosis Code(s): D72.829 - Elevated white blood cell count, unspecified Status: Acute - Plan Systemic inflammatory response syndrome -Patient met criteria admission with leukocytosis, tachycardia, pancreatitis -Continue IV fluids -Continue to monitor for any infectious source Acute pancreatitis -Lipase level elevated as well as CT scan indicating acute pancreatitis -Continue IV fluids -Continue pain control -Start liquid diet -Continue to trend lipase level Acute renal failure superimposed on chronic kidney disease stage IV with electrolyte abnormalities with hypercalcemia, mild metabolic acidosis -Continue IV fluid and monitor renal function -Continue monitor calcium level Leukocytosis, likely reactive to acute pancreatitis -Continue to follow CBC Hypertension -Continue home medications History of kidney transplant -Continue antirejection medications DVT prevention -Sequential compression devices
[2018-03-30 10:19] LABS: Potassium 4.4 meq/L (3.5-5.1)
[2018-03-30 10:26] LABS: Lymphocytes 4 % (9-44); Metamyelocytes 4 % (0-1); Monocytes 7 % (0-8); Platelet Estimate Normal (Normal); Platelet Morphology Normal (Normal)
[2018-03-30 10:30] LABS: Calcium 9.4 mg/dL (8.5-10.1); Carbon Dioxide 18.5 meq/L (21.0-32.0)
[2018-03-30] MEDS ORDERED: Sodium Bicarbonate 8.4% Inj 50 MEQ/50 ML Syringe IV.PUSH ONE (14:33)
[2018-03-30] MEDS: Sodium Chloride 0.45 % Inj 1,000 ML IV.CONT SCH ×2 (15:07→23:05)
[2018-03-30 16:24] LABS: Potassium 4.5 meq/L (3.5-5.1)
[2018-03-30 16:26] LABS: Calcium 8.9 mg/dL (8.5-10.1)
[2018-03-30 16:27] LABS: Carbon Dioxide 21.6 meq/L (21.0-32.0)
[2018-03-31 05:43] LABS: Baso % (Auto) 0.2 % (0.0-2.0); Eos % (Auto) 0.2 % (0.0-4.0); Hematocrit 23.2 % (35.0-46.0); Hemoglobin 7.3 gm/dL (11.6-15.3); Lymph # (Auto) 0.6 th/mm3 (1.0-4.8); Lymph % (Auto) 3.9 % (9.0-44.0); Mean Corpuscular HGB Conc 31.5 % (32.0-36.0); Mean Corpuscular Hemoglobin 29.4 pg (27.0-34.0); Mean Corpuscular Volume 93.5 fL (80.0-100.0); Mean Platelet Volume 10.2 fL (7.0-11.0); Mono # (Auto) 1.1 th/mm3 (0.0-0.9); Mono % (Auto) 7.3 % (0.0-8.0); Neut # (Auto) 13.9 th/mm3 (1.8-7.7); Neut % (Auto) 88.4 % (16.0-70.0); Platelet Count 192 th/mm3 (150-450); Red Blood Count 2.48 mil/mm3 (4.00-5.30); Red Cell Distribution Width 13.6 % (11.6-17.2); White Blood Count 15.6 th/mm3 (4.0-11.0)
[2018-03-31] MEDS: Sodium Chloride 0.45 % Inj 1,000 ML IV.CONT SCH (05:49)
[2018-03-31 05:51] LABS: Chloride 113 meq/L (98-107); Potassium 4.4 meq/L (3.5-5.1); Sodium 143 meq/L (136-145)
[2018-03-31 05:59] LABS: Calcium 8.2 mg/dL (8.5-10.1)
[2018-03-31 06:35] LABS: Alanine Aminotransferase 17 U/L (10-53); Albumin 1.6 g/dL (3.4-5.0); Alkaline Phosphatase 97 U/L (45-117); Anion Gap 11 meq/L (5-15); Aspartate Aminotransferase 12 U/L (15-37); Blood Urea Nitrogen 55 mg/dL (7-18); Carbon Dioxide 18.6 meq/L (21.0-32.0); Glomerular Filtration Rate 11 mL/min (>89); Glucose,Random 64 mg/dL (74-106); Lipase 1350 U/L (73-393); Total Protein 4.4 g/dL (6.4-8.2)
--- NOTE | 2018-03-31 08:47 | P.PN ---
Subjective Interval history: Follow-up acute pancreatitis and leukocytosis. Patient lying in bed comfortably no apparent distress. Patient states that her pain has much improved overnight. We will attempt p.o. medications for pain. Has been tolerating clear liquid diet will advance to full liquid diet and assess tolerance. Patient to discharge home after lunch if doing well. Patient also states that she just finished doxycycline last week for pneumonia. She states that she feels much improved. This is likely the cause of leukocytosis as well as stress response from pancreatitis. Patient does state she follows closely with Dr. Brito, nephrology, actually has called his office this morning and updated about her presentation to the hospital. Her creatinine is 4.2 today. He has been updated and patient will follow up with him in his office next week. Patient states that her baseline is roughly around 3-4. Has been urinating. She is also anemic today this is likely exacerbated by IV fluids. Patient states that she has been anemic in the past, and follows closely with Dr. Arambula. Sometimes she gets Neupogen shots. He will follow this in the outpatient setting, CBC has been ordered. Physical Exam Vital signs: Vital Signs 03/30/18 11:37 03/30/18 15:22 03/30/18 20:00 Temperature 98.2 F 98.4 F 99.7 F H Pulse Rate 81 76 95 H Respiratory Rate 20 20 20 Blood Pressure 152/82 H 148/80 H 136/82 Pulse Oximetry 93 L 96 92 L 03/31/18 00:00 Temperature 98.9 F Pulse Rate 90 Respiratory Rate 18 Blood Pressure 126/70 Pulse Oximetry 92 L Intake & Output 03/30/18 03/31/18 03/31/18 18:59 06:59 18:59 Intake Total 1933 3240 / 3240 Output Total 800 / 800 Balance 1134 / 1134 3240 / 3240 Weight 47.2 kg 50.9 kg Intake: IV 1933 3000 / 3000 NS Inj 1,000 ML @ 150 mls/hr IV 1933 .CONT .Q6H40M [facility] Rx#: [id number] 1/2 Normal Saline Inj 1,000 ML 2000 / 2000 @ 125 mls/hr IV.CONT .Q8H [facility] Rx#:[id number] Oral 240 / 240 Output: Urine 800 / 800 Other: # Voids 2 # Urine Diapers 2 Date of Last Bowel Movement 03/29/18 Weight On Admission 47.2 kg Narrative: GENERAL: Well-developed, well-nourished patient in NAD. SKIN: Warm and dry. No rash. HEAD: Normocephalic. Atraumatic. EYES: Pupils equal and round. No scleral icterus. No injection or drainage. ENT: No nasal bleeding or discharge. Mucous membranes pink and moist. NECK: Supple. Trachea midline. CARDIOVASCULAR: Regular rate and rhythm. S1, S2 noted. No murmur appreciated. RESPIRATORY: No accessory muscle use. Clear to auscultation. Breath sounds equal bilaterally. GASTROINTESTINAL: Abdomen soft, nondistended. Normoactive bowel sounds x4. No tenderness to palpation this morning. MUSCULOSKELETAL: No obvious deformities. Extremities without clubbing, cyanosis , or edema. NEUROLOGICAL: Awake and alert. No obvious cranial nerve deficits. Motor grossly within normal limits. 5/5 muscle strength in bilateral upper and lower extremities. Normal speech. PSYCHIATRIC: Appropriate mood and affect; insight and judgment normal. Results - Labs CBC & Chem 7: 03/31/18 05:09 03/31/18 05:19 Laboratory Results - last 24 hr 03/30/18 03/30/18 03/30/18 09:24 09:24 09:24 CBC w Diff Slide review pending WBC 20.1 H RBC 2.89 L Hgb 8.4 L D Hct 26.8 L MCV 92.6 MCH 29.2 MCHC 31.6 L RDW 14.4 Plt Count 217 MPV 9.2 Neut % (Auto) 85.7 H Lymph % (Auto) 2.8 L [place] % (Auto) 11.0 H Eos % (Auto) 0.3 Baso % (Auto) 0.2 Neut # (Auto) 17.2 H Lymph # (Auto) 0.6 L [place] # (Auto) 2.2 H Eos # (Auto) 0.1 Baso # (Auto) 0.0 WBC Differential Manual diff final Seg Neuts % (Manual) 77 H Band Neuts % (Manual) 7 H Lymphocytes % (Manual) 4 L Monocytes % (Manual) 7 Basophils % (Manual) 1 Metamyelocytes % (Man) 4 H Abs Neuts (Manual) 17.7 H Differential Comment . Platelet Estimate Normal Platelet Morphology Normal Sodium 146 H Potassium 4.4 Chloride 117 H Carbon Dioxide 18.5 L Anion Gap 11 BUN 59 H Creatinine 4.20 H Estimated GFR 11 L Random Glucose 84 Calcium 9.4 D Total Bilirubin AST ALT Alkaline Phosphatase Total Protein Albumin Triglycerides Lipase 4093 H PTH Intact 7.6 L 03/30/18 03/30/18 03/30/18 09:24 09:24 16:02 CBC w Diff WBC RBC Hgb Hct MCV MCH MCHC RDW Plt Count MPV Neut % (Auto) Lymph % (Auto) [place] % (Auto) Eos % (Auto) Baso % (Auto) Neut # (Auto) Lymph # (Auto) [place] # (Auto) Eos # (Auto) Baso # (Auto) WBC Differential Seg Neuts % (Manual) Band Neuts % (Manual) Lymphocytes % (Manual) Monocytes % (Manual) Basophils % (Manual) Metamyelocytes % (Man) Abs Neuts (Manual) Differential Comment Platelet Estimate Platelet Morphology Sodium 147 H Potassium 4.5 Chloride 116 H Carbon Dioxide 21.6 Anion Gap 9 BUN 56 H Creatinine 4.00 H Estimated GFR 12 L Random Glucose 86 Calcium 8.9 Total Bilirubin AST ALT Alkaline Phosphatase Total Protein Albumin Triglycerides 127 Lipase Cancelled PTH Intact 03/31/18 03/31/18 05:09 05:19 CBC w Diff Auto diff final WBC 15.6 H RBC 2.48 L Hgb 7.3 L Hct 23.2 L MCV 93.5 MCH 29.4 MCHC 31.5 L RDW 13.6 Plt Count 192 MPV 10.2 Neut % (Auto) 88.4 H Lymph % (Auto) 3.9 L [place] % (Auto) 7.3 Eos % (Auto) 0.2 Baso % (Auto) 0.2 Neut # (Auto) 13.9 H Lymph # (Auto) 0.6 L [place] # (Auto) 1.1 H Eos # (Auto) 0.0 Baso # (Auto) 0.0 WBC Differential . Seg Neuts % (Manual) Band Neuts % (Manual) Lymphocytes % (Manual) Monocytes % (Manual) Basophils % (Manual) Metamyelocytes % (Man) Abs Neuts (Manual) Differential Comment . Platelet Estimate Platelet Morphology Sodium 143 Potassium 4.4 Chloride 113 H Carbon Dioxide 18.6 L Anion Gap 11 BUN 55 H Creatinine 4.20 H Estimated GFR 11 L Random Glucose 64 L Calcium 8.2 L Total Bilirubin 0.5 AST 12 L ALT 17 Alkaline Phosphatase 97 Total Protein 4.4 L D Albumin 1.6 L D Triglycerides Lipase 1350 H PTH Intact Assessment and Plan - Assessment (1) Pancreatitis Code(s): K85.90 - Acute pancreatitis without necrosis or infection, unspecified Status: Acute (2) Systemic inflammatory response syndrome Code(s): R65.10 - Systemic inflammatory response syndrome (SIRS) of non- infectious origin without acute organ dysfunction Status: Acute (3) Acute renal failure superimposed on stage 4 chronic kidney disease Code(s): N17.9 - Acute kidney failure, unspecified; N18.4 - Chronic kidney disease, stage 4 (severe) Status: Acute (4) Dehydration Code(s): E86.0 - Dehydration Status: Acute (5) Abdominal pain Code(s): R10.9 - Unspecified abdominal pain Status: Acute (6) Leukocytosis Code(s): D72.829 - Elevated white blood cell count, unspecified Status: Acute - Plan Systemic inflammatory response syndrome Recent community-acquired pneumonia with outpatient treatment with doxycycline -Patient met criteria admission with leukocytosis, tachycardia, pancreatitis -Afebrile overnight. Vital signs stable. Tolerating clear liquid diet. -Continue to monitor for any infectious source. Chest x-ray showing resolving bibasilar infiltrates. -Patient recently finished doxycycline last Tuesday. States she feels much improved regarding her symptoms of pneumonia. -Leukocytosis improving. Acute pancreatitis, improving -Lipase level elevated as well as CT scan indicating acute pancreatitis. Lipase levels trending down. -Tolerating clear liquid diet, will advance to full liquid diet. Assess tolerance. -Pain control with p.o. [place]. Patient states she does not want any more IV narcotics at this time. Acute renal failure superimposed on chronic kidney disease stage IV -Was hypercalcemic upon presentation, 10.7. This has improved. -Patient states that her creatinine is between 3-4. Follows closely with Dr. Arambula, nephrology. Has been updated about her presentation the hospital by patient. -She has an appointment with him within the week. Hypertension -Continue home medications History of kidney transplant -Continue antirejection medications DVT prevention -Sequential compression devices while hospitalized Discharge Planning: Will discharge home. Patient has follow-up appointment with Dr. Arambula, nephrology to follow CBC for anemia as well as creatinine. Patient is tolerating full liquid diet well. Prescription for p.o. [place] given for 3 days. Activity as tolerated. Renal diet. Prescriptions per discharge orders. Follow-up PCP and Dr. Arambula.
[2018-03-31] MEDS: amLODIPine 5 MG Tablet PO SCH (09:47)
[2018-03-31] MEDS: Senna/Docusate Sodium 8.6/50 MG Tablet PO SCH (09:47)
[2018-03-31] MEDS: predniSONE 5 MG Tablet PO SCH (09:47)
== END 2018-03-31 15:23 | disposition home or self-care (01) ==
LOC: PHED 01:10 → PHEDA 03:28 → PH3 07:57
PROVIDERS: ADMIT Hospitalist; ATTEND Hospitalist